=== PATIENT | female | born 1980 | race Caucasian/White ===

== ENCOUNTER 2021-10-22 09:34 | Outpatient (CLI) | payer OTHER, SELFPAY ==
--- NOTE | ~2021-10-22 | MM_ITS ---
EXAMINATION: MM screening [facility] BI w adrian HISTORY: Screening TECHNIQUE: Craniocaudal and mediolateral oblique 3-D tomosynthesis images were obtained and synthetic 2-D images were generated. CAD analysis was submitted and interpreted. COMPARISON: No prior mammogram is available for comparison at this institution. BREAST PARENCHYMAL COMPOSITION: The breasts are heterogeneously dense, which may obscure small masses . FINDINGS: There is no evidence of suspicious mass, calcification, or architectural distortion to sugg est malignancy in either breast. There has been no suspicious interval change. IMPRESSION: 1. No mammographic evidence of malignancy. 2. Recommend routine screening mammography in one year. BI-RADS Category 1: Negative Reviewed, dictated and finalized at location A. 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
== END 2021-10-22 09:35 | disposition home or self-care (01) ==
LOC: ANHIMG 09:38
PROVIDERS: PCP Family Medicine; Visit Provider Nurse Practitioner Obstetrics & Gynecology
DX: Z12.31 Encounter for screening mammogram for malignant neoplasm of breast (principal)
CPT/HCPCS: 77063; 77067

== ENCOUNTER 2023-04-18 08:31 | Outpatient (CLI) | payer OTHER, SELFPAY ==
--- NOTE | ~2023-04-18 | MM_ITS ---
EXAMINATION: MM screening [facility] BI w adrian HISTORY: Screening mammogram TECHNIQUE: Craniocaudal and mediolateral oblique 3-D tomosynthesis images were obtained and synthetic 2-D images were generated. CAD analysis was submitted and interpreted. COMPARISON: 10/22/2021 BREAST PARENCHYMAL COMPOSITION:The breasts are heterogeneously dense, which may obscure small masses. FINDINGS: No suspicious mass, calcification, or architectural distortion are identified in either mahesh ast to suggest malignancy. There has been no suspicious interval change. IMPRESSION: No mammographic evidence of malignancy. Recommend routine screening mammography in one year. BI-RADS Category 1: Negative Reviewed, dictated and finalized at location .
== END 2023-04-18 08:32 | disposition home or self-care (01) ==
LOC: ANHIMG 08:34
PROVIDERS: PCP Family Medicine; Visit Provider Nurse Practitioner Obstetrics & Gynecology
DX: Z12.31 Encounter for screening mammogram for malignant neoplasm of breast (principal)
CPT/HCPCS: 77063; 77067

== ENCOUNTER 2024-06-25 09:06 | Outpatient (CLI) | payer OTHER, SELFPAY ==
--- NOTE | ~2024-06-25 | MM_ITS ---
EXAMINATION: MM screening [facility] BI w adrian HISTORY: Screening TECHNIQUE: Craniocaudal and mediolateral oblique 3-D tomosynthesis images were obtained and synthetic 2-D images were generated. CAD analysis was submitted and interpreted. COMPARISON: Comparison to multiple prior studies sequentially, with oldest reviewed study dated 09/27. BREAST PARENCHYMAL COMPOSITION: Not dense: There are scattered areas of fibroglandular density. FINDINGS: There is no evidence of suspicious mass, calcification, or architectural distortion to sugg est malignancy in either breast. There has been no suspicious interval change. IMPRESSION: 1. No mammographic evidence of malignancy. 2. Recommend routine screening mammography in one year. BI-RADS Category 1: Negative Reviewed, dictated and finalized at location B.
== END 2024-06-25 09:07 | disposition home or self-care (01) ==
LOC: ANHIMG 09:07
PROVIDERS: PCP Family Medicine; Visit Provider Nurse Practitioner Obstetrics & Gynecology
DX: Z12.31 Encounter for screening mammogram for malignant neoplasm of breast (principal)
CPT/HCPCS: 77063; 77067

== ENCOUNTER 2025-02-27 10:55 | Emergency (ER) | payer OTHER, SELFPAY ==
--- OUTSIDE RECORDS SUMMARY | 2025-02-27 10:57 | XMS_ITS | Data Portability ---
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 Patient will come back in a year unless there are new symptoms. [email or web address] Not available 04/04/2020 10:23:37 04/24/2021 04/24/2021 Annual gynecological exam performed. Patient will come back in a year unless there are new symptoms. Not available 04/16/2021 15:11:59 05/30/2022 05/30/2022 Annual gynecological exam performed. Patient will come back in a year unless there are new symptoms. Not available 05/30/2022 09:47:10 06/21/2023 06/21/2023 Annual gynecological exam performed. Patient will come back in a year unless there are new symptoms. [email or web address] Not available 06/21/2023 10:08:08 07/02/2024 07/02/2024 Annual gynecological exam performed. Patient will come back in a year unless there are new symptoms. [email or web address] Not available 07/02/2024 15:09:25 Plan of Treatment Reminders Order Date Submit Date Provider Last Modified By Organization Details Last Modified Time Details Appointments None recorded. Lab CBC w/ auto diff 2023 024 [facility] (Lab), [address], [place], [address], 10/12/202 4 08:11:17 HbA1c (hemoglobi n A1c), blood 2023 024 [facility] (Lab), [address], [place], [address], 4 08:11:19 25-hydroxy vitamin D2 + 25-hydroxy vitamin D3, QN, serum or plasma 2023 024 [facility] (Lab), [address], [place], [address], 4 08:11:18 CMP, serum or plasma 2023 024 [facility] (Lab), [address], [place], [address], 4 08:11:18 lipid panel, blood 2023 024 [facility] (Lab), [address], [place], [address], 4 08:11:17 TSH, serum or plasma 2023 024 [facility] (Lab), [address], [place], [address], 4 08:11:18 vitamin D, 25-hydroxy , total, serum 2022 023 [facility] (Lab), [address], [place], [address], 3 07:41:20 CMP, serum or plasma 2022 023 [facility] (Lab), [address] [place], [address], 3 07:41:19 lipid panel, blood 2022 023 [facility] (Lab), [address] [place], [address], 3 07:41:19 CBC w/ auto diff 2022 023 [facility] (Lab), [address], [place], [address], 3 07:41:18 HbA1c (hemoglobi n A1c), blood 2022 023 [facility] (Lab), [address], [place], [address], 3 07:41:19 TSH, serum or plasma 2022 023 [facility] (Lab), [address], [place], [address], 3 07:41:20 lipid panel, blood 2021 022 [facility] (Lab), [address], [place], [address], 2 04:15:58 HbA1c (hemoglobi n A1c), blood 2021 022 [facility] (Lab), [address], [place], [address], 2 04:15:57 CMP, serum or plasma 2021 022 [facility] (Lab), [address], [place], [address], 2 04:15:59 vitamin D, 25-hydroxy , total, serum 2021 022 [facility] (Lab), [address] [place], [address], 2 04:15:59 CBC w/ auto diff 2021 022 [facility] (Lab), [address], [place], [address], 2 04:15:57 TSH, serum or plasma 2021 022 [facility] (Lab), [address] [place], [address], 2 04:15:58 CBC w/ auto diff 2020 021 [facility] (Lab), [address], [place], [address], 1 02:28:32 lipid panel, blood 2020 021 [facility] (Lab), [address], [place], [address], 1 02:28:33 CMP, serum or plasma 2020 021 [facility] (Lab), [address], [place], [address], 1 02:28:34 TSH, serum or plasma 2020 021 [facility] (Lab), [address] [place], [address], 1 02:28:34 vitamin D, 25-hydroxy , total, serum 2020 021 [facility] (Lab), [address] [place], [address], 1 02:28:34 HbA1c (hemoglobi n A1c), blood 2020 021 [facility] (Lab), [address] [place], [address], 1 02:28:35 CMP, serum or plasma 2019 020 [place] [facility] ([facility]), [address] , [place] [address], [place], [address], 0 12:03:59 CBC 2019 020 [facility] ([facility]), [address] [facility] [address], [place], [address], 0 12:03:59 lipid panel, serum 2019 020 [facility] ([facility]), [address] [facility] [address] , [address], [place], [address], 0 12:03:58 TSH, serum or plasma 2019 020 [facility] ([facility]), [address] [facility] [address], [place], [address], 0 12:04:01 vitamin D, 25-hydroxy , total, serum 2019 020 [facility] ([facility]), [address] [facility] [address] , [address], [place], [address], 0 12:04:02 HbA1c (hemoglobi n A1c), blood 2019 020 [facility] ([facility]), [facility] [address] , [address], [place], [address], 0 12:04:00 Referral None recorded. Procedures None recorded. Surgeries None recorded. Imaging MAMMO, screening, digital, bilateral 2020 021 [facility], [address], [place], [address], 2 17:28:37 Medication Orders None recorded. Patient TargetsNo targets recorded. Patient InstructionsNo instructions recorded. Reason for Referral None Reported. Results Created Date Observation Date Name Description Value Unit Range Abnormal Flag Note LastModifiedBy Organization Detail LastModifiedTime 04/04/20 20 04/05/2020 lipid panel , serum cholesterol 165 mg/dL <200 Not Available [facility] ([facility]) [address] [place] [address] [address], [place], [address], 04/05/2020 12:03:58 04/04/20 20 04/05/2020 lipid panel , serum triglyceride s 49 mg/dL <150 Not Available [facility] ([facility]) [address] [place] [address] [address], [place], [address], 04/05/2020 12:03:58 04/04/2004/05/2020 lipid panel , serum HDL cholesterol 66 mg/dL >39 Not Available [facility] ([facility]) [address] [place] [address] [address], [place], [address], 04/05/2020 12:03:58 04/04/20 20 04/05/2020 lipid panel , serum cholesterol / HDL ratio 2.50 ratio 0.00-4 .44 Not Available [facility] ([facility]) [address] [place] [address] [address], [place], [address], 04/05/2020 12:03:58 04/04/20 20 04/05/2020 lipid panel , serum non-HDL cholesterol 99 mg/dL <130 Not Available [facility] ([facility]) [address] [place] [address] [address], [place], [address], 04/05/2020 12:03:58 04/04/2004/05/2020 lipid panel , serum LDL cholesterol (calculation ) 89 mg/dL <130 LDL Susana stero l Level s Less than 100 mg/dL Optim al 100 to 129 mg/dL Near Optim al/ Above Optim al 130 to 159 mg/dL Borde rline High 160 to 189 mg/dL High 190 mg/dL and above Very High * Categ ories as recom jameson d by the 2004 ATPII I guide lines Not Available [facility] ([facility]) [address], [place], [address], 04/05/2020 12:03:58 04/04/20 20 04/05/2020 lipid panel , serum LDL/HDL ratio 1.4 ratio <3.3 ___ LDL Susana stero l Patie nt Histo ry ___ Test Date: 01/06 LDL Resul ts: 78 Units : mg/dL % Gabriella e: - ----- ----- ----- ----- ----- ----- ----- ----- ----- ----- ----- ----- ----- ----- --- Test Date: 04/04 LDL Resul ts: 89 Units : mg/dL % Quiroz e: +14% ___ Note: Ameri can Heart Assoc iatio n recom mends using total susana stero l and HDL numbe rs rathe r than ratio s for patie nt class ifica tion. New guide lines from AHA/A CC recom mend again st using speci fic LDL targe ts for patie nt manag ement . Rathe r a perce ntage decre ase is the joellen ed patie nt manag ement algor ithm, betwe en 30% and 50% reduc tion. If you would like to have your patie nts Cardi ovasc ular Risk Asses sment class ifica tion (per 2013 AHA/A CC guide lines ) 10-ye ar ASCVD score , pleas e order the ASCVD Advan barry Lipid Miguel Angel chowdhury (LIPC VD). Not Available [facility] ([facility]) [address] [place] [address] [address], [place], [address], 04/05/2020 12:03:58 04/04/2004/05/2020 CBC WBC 5.0 K/uL 3.8-11 .5 Not Available [facility] ([facility]) [address] [place] [address] [address], [place], [address], 04/05/2020 12:03:59 04/04/20 20 04/05/2020 CBC red blood cell count (RBC) 4.54 M/mm3 3.60-5 .30 Not Available [facility] ([facility]) [address] [place] [address] [address], [place], [address], 04/05/2020 12:03:59 04/04/20 20 04/05/2020 CBC hemoglobin (HGB) 13.3 gm/dL 11.5-1 5.5 Not Available [facility] ([facility]) [address] [place] [address] [address], [place], [address], 04/05/2020 12:03:59 04/04/2004/05/2020 CBC hematocrit (HCT) 40.0 % 35.2-4 6.4 Not Available [facility] ([facility]) [address] [place] [address] [address], [place], [address], 04/05/2020 12:03:59 04/04/2004/05/2020 CBC MCV 88.1 fL 79.0-9 9.0 Not Available [facility] ([facility]) [address] [place] [address] [address], [place], [address], 04/05/2020 12:03:59 04/04/20 20 04/05/2020 CBC MCH 29.3 pg 26.9-3 5.0 Not Available [facility] ([facility]) [address] [place] [address] [address], [place], [address], 04/05/2020 12:03:59 04/04/20 20 04/05/2020 CBC MCHC 33.3 g/dL 30.4-3 4.8 Not Available [facility] ([facility]) [address] [place] [address] [address], [place], [address], 04/05/2020 12:03:59 04/04/20 20 04/05/2020 CBC RDW 38.4 fL 38.6-5 3.8 low Not Available [facility] ([facility]) [address] [place] [address] [address], [place], [address], 04/05/2020 12:03:59 04/04/20 20 04/05/2020 CBC platelet count 213 K/cum m 137-39 7 Not Available [facility] ([facility]) [address] [place] [address] [address], [place], [address], 04/05/2020 12:03:59 04/04/20 20 04/05/2020 CMP, serum or plasm a sodium 138 mEq/L 135-14 5 Not Available [facility] ([facility]) [address] [place] [address] [address], [place], [address], 04/05/2020 12:03:59 04/04/20 20 04/05/2020 CMP, serum or plasm a potassium 4.0 mEq/L 3.5-5. 3 Not Available [facility] ([facility]) [address] [place] [address] [address], [place], [address], 04/05/2020 12:03:59 04/04/20 20 04/05/2020 CMP, serum or plasm a chloride 100 mEq/L 97-108 Not Available [facility] ([facility]) [address] [place] [address] [address], [place], [address], 04/05/2020 12:03:59 04/04/20 20 04/05/2020 CMP, serum or plasm a CO2 26 mEq/L 22-32 Not Available [facility] ([facility]) [address] [place] [address] [address], [place], [address], 04/05/2020 12:03:59 04/04/20 20 04/05/2020 CMP, serum or plasm a glucose 83 mg/dL 65-99 Not Available [facility] ([facility]) [address] [place] [address] [address], [place], [address], 04/05/2020 12:03:59 04/04/20 20 04/05/2020 CMP, serum or plasm a BUN 11 mg/dL 6-20 Not Available [facility] ([facility]) [address] [place] [address] [address], [place], [address], 04/05/2020 12:03:59 04/04/20 20 04/05/2020 CMP, serum or plasm a creatinine 0.76 mg/dL 0.50-1 .00 Not Available [facility] ([facility]) [address] [place] [address] [address], [place], [address], 04/05/2020 12:03:59 04/04/20 20 04/05/2020 CMP, serum or plasm a calcium 9.7 mg/dL 8.6-10 .4 Not Available [facility] ([facility]) [address] [place] [address] [address], [place], [address], 04/05/2020 12:03:59 04/04/20 20 04/05/2020 CMP, serum or plasm a protein 7.3 g/dL 6.0-8. 3 Not Available [facility] ([facility]) [address] [place] [address] [address], [place], [address], 04/05/2020 12:03:59 04/04/20 20 04/05/2020 CMP, serum or plasm a albumin 4.9 g/dL 3.5-5. 3 Not Available [facility] ([facility]) [address] [place] [address] [address], [place], [address], 04/05/2020 12:03:59 04/04/20 20 04/05/2020 CMP, serum or plasm a alkaline phosphatase 49 IU/L 35-121 Not Available [facility] ([facility]) [address] [place] [address] [address], [place], [address], 04/05/2020 12:03:59 04/04/20 20 04/05/2020 CMP, serum or plasm a ALT (SGPT) 12 IU/L <5-47 Not Available [facility] ([facility]) [address] [place] [address] [address], [place], [address], 04/05/2020 12:03:59 04/04/20 20 04/05/2020 CMP, serum or plasm a AST (SGOT) 20 IU/L <5-40 Not Available [facility] ([facility]) [address] [place] [address] [address], [place], [address], 04/05/2020 12:03:59 04/04/20 20 04/05/2020 CMP, serum or plasm a bilirubin, total 0.4 mg/dL <0.2-1 .2 Not Available [facility] ([facility]) [address] [place] [address] [address], [place], [address], 04/05/2020 12:03:59 04/04/20 20 04/05/2020 CMP, serum or plasm a A/G ratio 2.0 mg/dL 1.1-2. 5 Not Available [facility] ([facility]) [address], [place], [address], 04/05/2020 12:03:59 04/04/20 20 04/05/2020 GFR, estim ated (eGFR ), serum estimated GFR (black) 115 mL/mi n/1.7 3m2 >59 Not Available [facility] ([facility]) [facility] [facility] [address], [place], [address], 04/05/2020 12:04:00 04/04/20 20 04/05/2020 GFR, estim ated (eGFR ), serum estimated GFR (other) 99 mL/mi n/1.7 3m2 >59 GFR Categ ories in Chron ic Kidne y Disea se (CKD) GFR Categ ory GFR (mL/m in/1. 73 sq. meter s) Inter preta tion G1 90 or great er Kira l or high* G2 60-89 Mild decre ase* G3a 45-59 Mild to moder ate decre ase G3b 30-44 Moder ate to sever e decre ase G4 15-29 Sever e decre ase G5 14 or less Cori belcher failu re *In the absen ce of afrrukh plasencia er GFR categ ory G1 or G2 fulfi ll the crite donnell for CKD (Kidn ey Int Suppl 2013; 3.1-1 50) The CKD-E PI calcu latio n is inten ded for use in patie nts 18 years of age and older . Decre ased calcu latio n accur acy may be seen in patie nts takin g medic ation s that affec t renal excre tion, or in those patie nts with extre mes in muscl e mass or diet. Not Available [facility] ([facility]) [address], [place], [address], 04/05/2020 12:04:00 04/04/20 20 04/05/2020 HbA1c (hemo globi n A1c), blood hemoglobin A1C 5.1 % <5.7 The follo wing HbA1c range s recom jameson d by the [employer] Diabe morgan Assoc iatio n (ADA) may be used as an aid in the diagn osis of diabe morgan melli tus. HA1c Sugge sted Diagn osis >=6.5 % Diabe tic 5.7% - 6.4% Pre-D iabet ic <5.7% Non-D iabet ic Not Available [facility] ([facility]) [address] [place] [address] [address], [place], [address], 04/05/2020 12:04:00 04/04/20 20 04/05/2020 estim ated avera ge gluco se estimated average glucose 100 mg/dL [place] ge Gluco se is calcu lated using the equat ion AG = (28.7 x HgbA1 c) - 46.7 based on the guide lines estab lishe d by the ADA. Not Available [facility] ([facility]) [address] [place] [address] [address], [place], [address], 04/05/2020 12:04:01 04/04/20 20 04/05/2020 TSH, serum or plasm a TSH reflex to FT4 1.99 mU/L 0.27-4 .20 Not Available [facility] ([facility]) [address] [place] [address] [address], [place], [address], 04/05/2020 12:04:01 04/04/20 20 04/05/2020 vitam in D, 25-hy droxy , total , serum vitamin D 25-hydroxy 38.8 NG/mL 30.0-1 00.0 Inter preta tion of Vitam in D 25 OH: < 20 ng/mL - Defic iency 20 - 29 ng/mL - Insuf ficie ncy 30 - 100 ng/mL - Suffi cienc y > 100 ng/mL - Super -ther apeut ic- toxic ity may occur above this level . Clini yaneth corre latio n requi red. Not Available [facility] ([facility]) [address] [address], [place], [address], 04/05/2020 12:04:02 04/04/20 20 04/06/2020 pap, LB Pap test thin prep Unsati sfacto ry for Evalua tion unsatisfa ctory ACCES JAGJIT #: [id number] Sourc e: Cervi yaneth/E ndoce rvica l LMP: 03/20 Date Taken : 04/04 Speci men Type: ThinP rep Vial Date Repor macrina: 2019 Clini yaneth Data: Cytot ech: Matheus Mancia carisa, CT( CP) Date Repor macrina: 2019 Speci men Adequ acy: Unsat isfac tory for evalu ation Speci men is proce ssed and exami mesha but unsat isfac tory for evalu ation of epith elial abnor malit y becau se of: Too few cells prese nt for adequ ate evalu ation Gener al Categ oriza tion: UNSAT ISFAC TORY FOR EVALU ATION Comme nts/R ecomm endat ions: SPECI MEN WAS REPRO CESSE D IN AN ATTEM PT TO OBTAI N AN ADEQU ATE SAMPL E. D N A A S S A Y S R E P O R T TEST NAME RESUL TS ----- ---- ----- -- HPV High Risk Scree n (TMA) ThinP rep Vial The human papil lomav irus (HPV) High Risk Scree n is an FDA-a pprov ed in-vi tro ampli fied nucle ic acid test for the quali tativ e detec tion of E6/E7 viral mRNA. Resul ts mayra bowen be corre lated with patie nt prese ntati on, histo ry, cervi yaneth cytol ogy and other clini yaneth and labor atory findi ngs. See https ://ww w.hol ogic. com/s ites/ defau lt/fi les2 018-0 3/AW- 98407 _002_ 01.pd f for ander er infor blanka n. Test perfo rmed by [employer] [facility], [address], [place] [address] , Elias De La Cruz ra, , Labor atorqunb Dire tor. HPV High Risk *HPV NOT DETEC MACRINA (TYPE S 16, 18, 31, 33, 35, 39, 45, 51, 52, 56, 58, 59, 66, 68) *HPV: The human papil lomav irus (HPV) High Risk Himanshu mcnamara is an FDA-a pprov ed in-vi tro ampli fied nucle ic acid test for the quali tativ e detec tion of E6/E7 viral mRNA. Resul ts shoul d be corre lated with patie nt prese ntati on, histo ry, cervi yaneth cytol ogy and other clini yaneth and labor atory findi ngs. See https ://Advice [employer]. [employer]/s ites/ defau lt/fi -0 3- 91847 _002_ 01.pd f for ander er infor blanka n. Test perfo rmed by [employer] [facility], [address], [place] [address] , Elias De La Cruz ra, DO, Labor atorqunb Dire tor. End of Repor t Techn ical servi manohar provi ded by [employer], [address] [place] [address] Chang Pineda MD, Labor Vehrity Dire tor. Case revie wed and diagn osis rende red at [employer], [facility], [address] [place] [address] Chang Pineda MD, Labor atorqunb Dire tor. CONFI DENTI AL Not Available [facility] ([facility]) [address], [place], [address], 04/06/2020 16:51:55 04/04/20 20 04/05/2020 HPV DNA, high- risk HPV high risk NOT DETECT ED normal Not Available [facility] ([facility]) [address], [place], [address], 04/06/2020 16:51:55 04/24/20 21 04/24/2021 CBC W/DIF F WBC 5.7 10'3/ uL 3.6-10 .2 Not Available [facility] (Lab) [address], [place], [address], 04/25/2021 02:28:32 04/24/20 21 04/24/2021 CBC W/DIF F RBC 4.80 10'6/ uL (based on docume nted legal sex) 4.10-5 .30 Not Available [facility] (Lab) [address], [place], [address], 04/25/2021 02:28:32 04/24/20 21 04/24/2021 CBC W/DIF F HGB 13.3 g/dL (based on docume nted legal sex) 11.9-1 5.8 Not Available [facility] (Lab) [address], [place], [address], 04/25/2021 02:28:32 04/24/20 21 04/24/2021 CBC W/DIF F HCT 43.6 % (based on docume nted legal sex) 37.4-4 8.3 Not Available [facility] (Lab) [address], [place], [address], 04/25/2021 02:28:32 04/24/20 21 04/24/2021 CBC W/DIF F MCV 91.0 fL 82.0-9 9.0 Not Available [facility] (Lab) [address] [place], [address], 04/25/2021 02:28:32 04/24/20 21 04/24/2021 CBC W/DIF F MCH 28.0 pg 27.0-3 3.0 Not Available [facility] (Lab) [address], [place], [address], 04/25/2021 02:28:32 04/24/20 21 04/24/2021 CBC W/DIF F MCHC 31.0 g/dL 32.0-3 6.0 low Not Available [facility] (Lab) [address], [place], [address], 04/25/2021 02:28:32 04/24/20 21 04/24/2021 CBC W/DIF F RDW 13.0 % 11.0-1 5.0 Not Available [facility] (Lab) [address], [place], [address], 04/25/2021 02:28:32 04/24/20 21 04/24/2021 CBC W/DIF F plt 215 10'3/ uL 150-45 0 Not Available [facility] (Lab) [address], [place], [address], 04/25/2021 02:28:32 04/24/20 21 04/24/2021 CBC W/DIF F MPV 12.8 fL Not Available [facility] (Lab) [address], [place], [address], 04/25/2021 02:28:32 04/24/20 21 04/24/2021 CBC W/DIF F NRBC's 0.00 % 0 Not Available [facility] (Lab) [address], [place], [address], 04/25/2021 02:28:32 04/24/20 21 04/24/2021 CBC W/DIF F absolute NRBCs 0.0 10'3/ uL 0 Not Available [facility] [facility] [address], [place], [address], 04/25/2021 02:28:32 04/24/20 21 04/24/2021 CBC W/DIF F neutrophils 59.0 % 37.0-7 2.0 Not Available [facility] (Lab) [address], [place], [address], 04/25/2021 02:28:32 04/24/20 21 04/24/2021 CBC W/DIF F lymphocytes 31.0 % 16.0-4 8.0 Not Available [facility] (Lab) [address], [place], [address], 04/25/2021 02:28:32 04/24/20 21 04/24/2021 CBC W/DIF F monocytes 7.0 % 4.0-14 .0 Not Available [facility] (Lab) [address], [place], [address], 04/25/2021 02:28:32 04/24/20 21 04/24/2021 CBC W/DIF F eosinophils 2.0 % 0.0-9. 0 Not Available [facility] (Lab) [address], [place], [address], 04/25/2021 02:28:32 04/24/20 21 04/24/2021 CBC W/DIF F basophils 1.0 % 0.0-2. 0 Not Available [facility] (Lab) [address], [place], [address], 04/25/2021 02:28:32 04/24/20 21 04/24/2021 CBC W/DIF F immature granulocytes 0.0 % no define d refere nce range Not Available [facility] (Lab) [address], [place], [address], 04/25/2021 02:28:32 04/24/20 21 04/24/2021 CBC W/DIF F absolute neutrophils 3.4 10'3/ uL 1.1-6. 0 Not Available [facility] (Lab) [address], [place], [address], 04/25/2021 02:28:32 04/24/20 21 04/24/2021 CBC W/DIF F absolute lymphocytes 1.8 10'3/ uL 0.7-3. 4 Not Available [facility] (Lab) [address], [place], [address], 04/25/2021 02:28:32 04/24/20 21 04/24/2021 CBC W/DIF F absolute monocytes 0.4 10'3/ uL 0.3-1. 0 Not Available [facility] (Lab) [address], [place], [address], 04/25/2021 02:28:32 04/24/20 21 04/24/2021 CBC W/DIF F absolute eosinophils 0.1 10'3/ uL 0.0-0. 6 Not Available [facility] (Lab) [address], [place], [address], 04/25/2021 02:28:32 04/24/20 21 04/24/2021 CBC W/DIF F absolute basophils 0.1 10'3/ uL 0.0-0. 1 Not Available [facility] (Lab) [address], [place], [address], 04/25/2021 02:28:32 04/24/20 21 04/24/2021 CBC W/DIF F absolute immature granulocytes 0.00 10'3/ uL 0.00-0 .10 2020 12:14 AM: P indic ates parti al resul ts on a panel have been relea sed. Addit ional resul ts will follo w. 2020 12:14 AM: This resul t has been final verif ied. No addit ional or quiroz ed resul ts are expec macrina. Not Available [facility] (Lab) [address], [place], [address], 04/25/2021 02:28:32 04/24/20 21 04/24/2021 LIPID PANEL ,AMA (LDL- CALC) total cholesterol 149 mg/dL 0-199 Not Available [facility] (Lab) [address], [place], [address], 04/25/2021 02:28:33 04/24/20 21 04/24/2021 LIPID PANEL ,AMA (LDL- CALC) triglyceride s 46 mg/dL 0.00-1 50.00 NCEP Refer ence Value s for Trigl yceri nat: Kira l: <150 mg/dL Borde rline High: 150 - 199 mg/dL High: 200 - 499 mg/dL Very High: >/= 500 mg/dL Not Available [facility] (Lab) [address], [place], [address], 04/25/2021 02:28:33 04/24/2004/24/2021 LIPID PANEL ,AMA (LDL- CALC) HDL cholesterol 56 mg/dL 23-92 Not Available [facility] (Lab) [address], [place], [address], 04/25/2021 02:28:33 04/24/20 21 04/24/2021 LIPID PANEL ,AMA (LDL- CALC) LDL cholesterol 84 mg/dL 0-99 Cutof f value s recom jameson d by the Nat[employer] nal Susana st[employer] l [employer]ca tion Progr am: JOELLEN ABLE: Susana stero l <200 mg/dL LDL <100 mg/dL BORDE RLINE : Susana stero l 200-2 39 mg/dL LDL 101-1 59 mg/dL HIGHE R RISK: Susana stero l >240 mg/dL LDL >160 mg/dL , HDL <40 mg/dL Not Available [facility] (Lab) [address], [place], [address], 04/25/2021 02:28:33 04/24/20 21 04/24/2021 LIPID PANEL ,AMA (LDL- CALC) non-HDL cholesterol 93 mg/dL no refere nce range A reaso nable goal for non-H DL susana stero l is one that is 30 mg/dL highe r than the LDL susana stero l goal. Not Available [facility] (Lab) [address], [place], [address], 04/25/2021 02:28:33 04/24/20 21 04/24/2021 LIPID PANEL ,AMA (LDL- CALC) chol/HDL ratio 2.7 . 0.0-5. 0 Not Available [facility] (Lab) [address], [place], [address], 04/25/2021 02:28:33 04/24/20 21 04/24/2021 CMP(C OMPRE HENSI VE METAB OLIC PANEL ) sodium 138 mmol/ L 136-14 5 Not Available [facility] (Lab) [address], [place], [address], 04/25/2021 02:28:34 04/24/20 21 04/24/2021 CMP(C OMPRE HENSI VE METAB OLIC PANEL ) potassium 3.8 mmol/ L 3.5-5. 1 Not Available [facility] (Lab) [address], [place], [address], 04/25/2021 02:28:34 04/24/20 21 04/24/2021 CMP(C OMPRE HENSI VE METAB OLIC PANEL ) chloride 104 mmol/ L 98-107 Not Available [facility] (Lab) [address] [place], [address], 04/25/2021 02:28:34 04/24/20 21 04/24/2021 CMP(C OMPRE HENSI VE METAB OLIC PANEL ) carbon dioxide 25 mmol/ L 21-31 Not Available [facility] (Lab) [address] [place], [address], 04/25/2021 02:28:34 04/24/20 21 04/24/2021 CMP(C OMPRE HENSI VE METAB OLIC PANEL ) anion gap 9 mmol/ L 4-13 Not Available [facility] (Lab) [address], [place], [address], 04/25/2021 02:28:34 04/24/20 21 04/24/2021 CMP(C OMPRE HENSI VE METAB OLIC PANEL ) blood urea nitrogen 12 mg/dL 7-25 Not Available [facility] (Lab) [address], [place], [address], 04/25/2021 02:28:34 04/24/20 21 04/24/2021 CMP(C OMPRE HENSI VE METAB OLIC PANEL ) creatinine 0.74 mg/dL 0.60-1 .30 Not Available [facility] (Lab) [address], [place], [address], 04/25/2021 02:28:34 04/24/20 21 04/24/2021 CMP(C OMPRE HENSI VE METAB OLIC PANEL ) GFR () 106 mL/mi n/1.7 3_m2 60-300 Not Available [facility] (Lab) [address], [place], [address], 04/25/2021 02:28:34 04/24/20 21 04/24/2021 CMP(C OMPRE HENSI VE METAB OLIC PANEL ) GFR (others) 87 mL/mi n/1.7 3_m2 60-300 Not Available [facility] (Lab) [address], [place], [address], 04/25/2021 02:28:34 04/24/20 21 04/24/2021 CMP(C OMPRE HENSI VE METAB OLIC PANEL ) calcium 9.3 mg/dL 8.6-10 .2 Not Available [facility] (Lab) [address], [place], [address], 04/25/2021 02:28:34 04/24/20 21 04/24/2021 CMP(C OMPRE HENSI VE METAB OLIC PANEL ) glucose 80 mg/dL 70-100 Not Available [facility] (Lab) [address], [place], [address], 04/25/2021 02:28:34 04/24/20 21 04/24/2021 CMP(C OMPRE HENSI VE METAB OLIC PANEL ) protein, total 7.1 g/dL 6.4-8. 3 Not Available [facility] (Lab) [address], [place], [address], 04/25/2021 02:28:34 04/24/20 21 04/24/2021 CMP(C OMPRE HENSI VE METAB OLIC PANEL ) albumin 4.3 g/dL 3.5-5. 0 Not Available [facility] (Lab) [address], [place], [address], 04/25/2021 02:28:34 04/24/20 21 04/24/2021 CMP(C OMPRE HENSI VE METAB OLIC PANEL ) ALT 9 units /L 9-43 Not Available [facility] (Lab) [address], [place], [address], 04/25/2021 02:28:34 04/24/20 21 04/24/2021 CMP(C OMPRE HENSI VE METAB OLIC PANEL ) alkaline phosphatase 39 units /L 34-104 Not Available [facility] (Lab) [address], [place], [address], 04/25/2021 02:28:34 04/24/20 21 04/24/2021 CMP(C OMPRE HENSI VE METAB OLIC PANEL ) AST 15 units /L 13-39 Not Available [facility] (Lab) [address], [place], [address], 04/25/2021 02:28:34 04/24/20 21 04/24/2021 CMP(C OMPRE HENSI VE METAB OLIC PANEL ) bilirubin, total 0.4 mg/dL 0.2-1. 2 Not Available [facility] (Lab) [address] [place], [address], 04/25/2021 02:28:34 04/24/20 21 04/24/2021 TSH, REFLE X FREE T4 TSH 2.72 uIU/m L 0.30-5 .33 Not Available [facility] (Lab) [address], [place], [address], 04/25/2021 02:28:34 04/24/20 21 04/24/2021 VITAM IN D, 25-OH (TOTA L D2/D3 ) vitamin D, 25-hydroxy, total 36.5 NG/mL 30-80 NOTE: Defic iency : <20 ng/mL Insuf ficie ncy: 20-29 ng/mL Optim um Level : 30-80 ng/mL Possi ble Toxic ity: >80 ng/mL Most patie nts with toxic ity have level s >150 ng/mL . Not Available [facility] (Lab) [address], [place], [address], 04/25/2021 02:28:34 04/24/20 21 04/24/2021 HEMOG LOBIN A1C hemoglobin A1C 5.2 % 0-5.6 The Ameri can Diabe morgan [employer] iatio n recom mends that a prima ry goal of thera py shoul d be a HBA1C of < 7% and that physi cians shoul d reeva luate the treat ment regim en in patie nts with HBA1C value s consi stent ly > 8%. 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 Locat ion: [place] Path[facility] log[facility] Recei jalyn: 04/25 0013 First Scree n: Nabil Scott, CT Speci men: Scree karen Pap - Image d, Cervi x STATE MENT OF ADEQU ACY: Satis facto ry for evalu ation Trans forma tion zone compo nent prese nt FINAL DIAGN OSIS: Negat lanette for Intra epith elial Lesio n or Malrey gordon Elect stone arshad bernice d by Nabil Scott, CT on 021 at 11:44 AM ----- ----- ----- ----- ----- ----- ----- ----- ----- ----- ----- ----- ----- ----- ----- ----- ----- ---- HPV RESUL TS: HPV mRNA E6/E7 : No HPV mRNA Detec macrina NOTE: This high risk HPV mRNA assay detec ts fourt een high- risk HPV types (16, 18, 31, 33, 35, 39, 45, 51, 52, 56, 58, 59, 66, 68) witho ut diffe renti ation . CHART ABLE COMME NT: Note: This speci men was revie wed by a Cytot echno logis t and/o r Patho logis t (as indic ated in this repor t) after evalu ation using the Thinp rep Imagi ng Syste m. CLINI YANETH INFOR MATIO N: Menst rual Statu s: LMP (if appli cable ): 021 Clini yaneth Histo ry/Pr eviou s Pap: Type of Neopl casey (if appli cable ): Other Histo ry: Hormo dariela (if appli cable ): PAP EDUCA JASVIR L NOTE: The Pap Test is a scree karen test with an inher ent false negat lanette rate. Liqui d-bas e sampl ing may decre ase, but will not elimi david, false negat lanette resul ts. A negat lanette resul t does not precl ude the prese nce and/o r devel opmen t of disea se, since the prese nce of abnor mal cells in the sampl e depen ds on the locat ion of the lesio n and sampl ing techn ique. Violetta nued regul ar scree karen is the best metho d of cance r preve ntion . If repor macrina cytol ogic findi ng do not corre late with physi yaneth and/o r histo rical findi ngs, furth er inves tigat ion is recom jameson d, as clini dre nye nted. Not Available [facility] (Lab) [address], [place], [address], 04/26/2021 12:47:05 05/30/20 22 05/30/2022 CBC W/DIF F WBC 5.4 10'3/ uL 3.6-10 .2 Not Available [facility] [address] [place] [address], [address], 05/31/2022 04:15:57 05/30/20 22 05/30/2022 CBC W/DIF F RBC 4.70 10'6/ uL (based on docume nted legal sex) 4.10-5 .30 Not Available [facility] [address] [place] [address], [address], 05/31/2022 04:15:57 05/30/20 22 05/30/2022 CBC W/DIF F HGB 13.2 g/dL (based on docume nted legal sex) 11.9-1 5.8 Not Available [facility] [address] [place] [address], [address], 05/31/2022 04:15:57 05/30/20 22 05/30/2022 CBC W/DIF F HCT 42.8 % (based on docume nted legal sex) 37.4-4 8.3 Not Available [facility] [place], [address], 05/31/2022 04:15:57 05/30/20 22 05/30/2022 CBC W/DIF F MCV 91.0 fL 82.0-9 9.0 Not Available [facility] [place], [address], 05/31/2022 04:15:57 05/30/20 22 05/30/2022 CBC W/DIF F MCH 28.0 pg 27.0-3 3.0 Not Available [facility] [address] [place], [place] [address], [place], [address], 05/31/2022 04:15:57 05/30/20 22 05/30/2022 CBC W/DIF F MCHC 31.0 g/dL 32.0-3 6.0 low Not Available [facility] [place], [address], 05/31/2022 04:15:57 05/30/20 22 05/30/2022 CBC W/DIF F RDW 13.0 % 11.0-1 5.0 Not Available [facility] [place], [address], 05/31/2022 04:15:57 05/30/20 22 05/30/2022 CBC W/DIF F plt 251 10'3/ uL 150-45 0 Not Available [facility] [place], [address], 05/31/2022 04:15:57 05/30/20 22 05/30/2022 CBC W/DIF F MPV 12.9 fL 9.8-12 .7 high Not Available [facility] [place], [address], 05/31/2022 04:15:57 05/30/20 22 05/30/2022 CBC W/DIF F NRBC's 0.00 % 0 Not Available [facility] [place], [address], 05/31/2022 04:15:57 05/30/20 22 05/30/2022 CBC W/DIF F absolute NRBCs 0.0 10'3/ uL 0 Not Available [facility] [address] [place], [place] [address], [place], [address], 05/31/2022 04:15:57 05/30/20 22 05/30/2022 CBC W/DIF F neutrophils 57.0 % 37.0-7 2.0 Not Available [facility] [address] [place] [address], [address], 05/31/2022 04:15:57 05/30/20 22 05/30/2022 CBC W/DIF F lymphocytes 32.0 % 16.0-4 8.0 Not Available [facility] [address] [place] [address], [address], 05/31/2022 04:15:57 05/30/20 22 05/30/2022 CBC W/DIF F monocytes 8.0 % 4.0-14 .0 Not Available [facility] [address] [place], [place] [address], [place], [address], 05/31/2022 04:15:57 05/30/20 22 05/30/2022 CBC W/DIF F eosinophils 2.0 % 0.0-9. 0 Not Available [facility] [address] [place] [address], [place], [address], 05/31/2022 04:15:57 05/30/20 22 05/30/2022 CBC W/DIF F basophils 1.0 % 0.0-2. 0 Not Available [facility] [address] [place], [place] [address], [place], [address], 05/31/2022 04:15:57 05/30/20 22 05/30/2022 CBC W/DIF F immature granulocytes 0.0 % no define d refere nce range Not Available [facility] [address] [place] [address], [address], 05/31/2022 04:15:57 05/30/20 22 05/30/2022 CBC W/DIF F absolute neutrophils 3.1 10'3/ uL 1.1-6. 0 Not Available [facility] [address] [place] [address], [address], 05/31/2022 04:15:57 05/30/20 22 05/30/2022 CBC W/DIF F absolute lymphocytes 1.7 10'3/ uL 0.7-3. 4 Not Available [facility] [address] [place] [address], [address], 05/31/2022 04:15:57 05/30/20 22 05/30/2022 CBC W/DIF F absolute monocytes 0.4 10'3/ uL 0.3-1. 0 Not Available [facility] [address] [place] [address], [address], 05/31/2022 04:15:57 05/30/20 22 05/30/2022 CBC W/DIF F absolute eosinophils 0.1 10'3/ uL 0.0-0. 6 Not Available [facility] [address] [place] [address], [address], 05/31/2022 04:15:57 05/30/20 22 05/30/2022 CBC W/DIF F absolute basophils 0.1 10'3/ uL 0.0-0. 1 Not Available [facility] [address] [place], [address], 05/31/2022 04:15:57 05/30/20 22 05/30/2022 CBC W/DIF F absolute immature granulocytes 0.00 10'3/ uL 0.00-0 .10 2:16 AM: P indic ates parti al resul ts on a panel have been relea sed. Addit ional resul ts will follo w. 2:16 AM: This resul t has been final verif ied. No addit ional or quiroz ed resul ts are expec macrina. Not Available [facility] [address] [place], [address], 05/31/2022 04:15:57 05/30/20 22 05/30/2022 HEMOG LOBIN A1C hemoglobin A1C 5.2 % 0-5.6 The Ameri can [employer] mor[employer] iatio n recom mends that a prima ry goal of thera py yudelkaul d be a HBA1C of < 7% and that physi cians shoul d reeva luate the treat ment regim en in patie nts with HBA1C value s consi stent ly > 8%. <5.7% Kira l 5.7 - 6.4% Incre ased risk for diabe morgan >=6.5 % Diagn ostic of diabe mogran <7.0% Goal of thera py >8.0% Actio n sugge sted Not Available [email or web address] [address] [place], [address], 05/31/2022 04:15:57 05/30/2005/30/2022 TSH, REFLE X FREE T4 TSH 1.99 uIU/m L 0.30-5 .33 Not Available [facility] [address] [place], [address], 05/31/2022 04:15:58 05/30/20 22 05/30/2022 LIPID PANEL ,AMA (LDL- CALC) total cholesterol 164 mg/dL 0-199 Not Available [facility] [address] [place] [address], [address], 05/31/2022 04:15:58 05/30/20 22 05/30/2022 LIPID PANEL ,AMA (LDL- CALC) triglyceride s 49 mg/dL 0.00-1 50.00 NCEP Refer ence Value s for Trigl yceri nat: Kira l: <150 mg/dL Borde rline High: 150 - 199 mg/dL High: 200 - 499 mg/dL Very High: >/= 500 mg/dL Not Available [facility] [address] [place] [address], [address], 05/31/2022 04:15:58 05/30/20 22 05/30/2022 LIPID PANEL ,AMA (LDL- CALC) HDL cholesterol 55 mg/dL >40 Not Available [facility] [address], [address], 05/31/2022 04:15:58 05/30/20 22 05/30/2022 LIPID PANEL ,AMA (LDL- CALC) LDL cholesterol 99 mg/dL 0-99 Cutof f value s recom jameson d by the [facility] Susana stero l Educa tion Progr am: JOELLEN ABLE: Susana stero l <200 mg/dL LDL <100 mg/dL BORDE RLINE : Susana stero l 200-2 39 mg/dL LDL 101-1 59 mg/dL HIGHE R RISK: Susana stero l >240 mg/dL LDL >160 mg/dL , HDL <40 mg/dL Not Available [facility] [address] [place] [address], [address], 05/31/2022 04:15:58 05/30/20 22 05/30/2022 LIPID PANEL ,AMA (LDL- CALC) non-HDL cholesterol 109 mg/dL no refere nce range A reaso nable goal for non-H DL susana stero l is one that is 30 mg/dL highe r than the LDL susana stero l goal. Not Available [facility] [place], [address], 05/31/2022 04:15:58 05/30/20 22 05/30/2022 LIPID PANEL ,AMA (LDL- CALC) chol/HDL ratio 3.0 . 0.0-5. 0 Not Available [facility] [address] [place], [place] [address], [place], [address], 05/31/2022 04:15:58 05/30/20 22 05/30/2022 CMP(C OMPRE HENSI VE METAB OLIC PANEL ) sodium 139 mmol/ L 133-14 6 Not Available [facility] [address] [place], [place] [address], [place], [address], 05/31/2022 04:15:59 05/30/20 22 05/30/2022 CMP(C OMPRE HENSI VE METAB OLIC PANEL ) potassium 3.6 mmol/ L 3.5-5. 1 Not Available [facility] [address] [place], [place] [address], [place], [address], 05/31/2022 04:15:59 05/30/20 22 05/30/2022 CMP(C OMPRE HENSI VE METAB OLIC PANEL ) chloride 103 mmol/ L 98-107 Not Available [facility] [address] [place], [place] [address], [place], [address], 05/31/2022 04:15:59 05/30/20 22 05/30/2022 CMP(C OMPRE HENSI VE METAB OLIC PANEL ) carbon dioxide 25 mmol/ L 21-31 Not Available [facility] [address] [place], [place] [address], [place], [address], 05/31/2022 04:15:59 05/30/20 22 05/30/2022 CMP(C OMPRE HENSI VE METAB OLIC PANEL ) anion gap 11 mmol/ L 4-13 Not Available [facility] [address] [place], [place] [address], [place], [address], 05/31/2022 04:15:59 05/30/20 22 05/30/2022 CMP(C OMPRE HENSI VE METAB OLIC PANEL ) blood urea nitrogen 10 mg/dL 7-25 Not Available [facility] [address] [place], [place] [address], [address], 05/31/2022 04:15:59 05/30/20 22 05/30/2022 CMP(C OMPRE HENSI VE METAB OLIC PANEL ) creatinine 0.83 mg/dL 0.60-1 .30 Not Available [facility] [address] [place], [place] [address], [address], 05/31/2022 04:15:59 05/30/20 22 05/30/2022 CMP(C OMPRE HENSI VE METAB OLIC PANEL ) egfrcr (CKD-epi 2020) >90 mL/mi n/1.7 3_m2 >=60 Not Available [facility] [address] [place], [place] [address], [place], [address], 05/31/2022 04:15:59 05/30/20 22 05/30/2022 CMP(C OMPRE HENSI VE METAB OLIC PANEL ) calcium 9.4 mg/dL 8.3-10 .5 Not Available [facility] [address] [place], [place] [address], [place], [address], 05/31/2022 04:15:59 05/30/20 22 05/30/2022 CMP(C OMPRE HENSI VE METAB OLIC PANEL ) glucose 76 mg/dL 70-100 Not Available [facility] [address] [place], [place] [address], [place], [address], 05/31/2022 04:15:59 05/30/20 22 05/30/2022 CMP(C OMPRE HENSI VE METAB OLIC PANEL ) protein, total 7.2 g/dL 6.4-8. 3 Not Available [facility] [address] [place] [address], [address], 05/31/2022 04:15:59 05/30/20 22 05/30/2022 CMP(C OMPRE HENSI VE METAB OLIC PANEL ) albumin 4.5 g/dL 3.5-5. 0 Not Available [facility] [address] [place] [address], [address], 05/31/2022 04:15:59 05/30/20 22 05/30/2022 CMP(C OMPRE HENSI VE METAB OLIC PANEL ) ALT 12 units /L 9-43 Not Available [facility] [address] [place] [address], [address], 05/31/2022 04:15:59 05/30/20 22 05/30/2022 CMP(C OMPRE HENSI VE METAB OLIC PANEL ) alkaline phosphatase 46 units /L 34-104 Not Available [facility] [address] [place] [address], [address], 05/31/2022 04:15:59 05/30/20 22 05/30/2022 CMP(C OMPRE HENSI VE METAB OLIC PANEL ) AST 20 units /L 13-39 Not Available [facility] [address] [place] [address], [address], 05/31/2022 04:15:59 05/30/20 22 05/30/2022 CMP(C OMPRE HENSI VE METAB OLIC PANEL ) bilirubin, total 0.6 mg/dL 0.2-1. 2 Not Available [facility] Infectious Disease [address] [place], [place] [address], [place], [phone], 05/31/2022 04:15:59 05/30/20 22 05/30/2022 VITAM IN D, 25-OH (TOTA L D2/D3 ) vitamin D, 25-hydroxy, total 23.0 NG/mL 30.0-1 00.0 low R-The refer ence range for this test has been updat ed. 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 Lázaro arshad bernice d by Desire Morris, CT on 022 at 5:42 PM ----- ----- ----- ----- ----- ----- ----- ----- ----- ----- ----- ----- ----- ----- ----- ----- ----- ---- HPV RESUL TS: HPV mRNA E6/E7 : No HPV mRNA Detec macrina NOTE: This high risk HPV mRNA assay detec ts fourt een high- risk HPV types (16, 18, 31, 33, 35, 39, 45, 51, 52, 56, 58, 59, 66, 68) witho ut diffe renti ation . COMME NT: Note: This speci men was revie wed by a Cytot echno logis t and/o r Patho logis t (as indic ated in this repor t) after evalu ation using the Thinp rep Imagi ng Syste m. CLINI YANETH INFOR MATIO N: Menst rual Statu s: LMP (if appli cable ): Clini yaneth Histo ry/Pr eviou s Pap: Type of Neopl casey (if appli cable ): Signi fican t Clini yaneth Findi ngs: Other Histo ry: Hormo dariela (if appli cable ): PAP EDUCA JASVIR L NOTE: The Pap Test is a scree karen test with an inher ent false negat lanette rate. Liqui d-bas ed sampl ing may decre ase, but will not elimi david, false negat lanette resul ts. A negat lanette resul t does not precl ude the prese nce and/o r devel opmen t of disea se, since the prese nce of abnor mal cells in the sampl e depen ds on the locat ion of the lesio n and sampl ing techn ique. Violetta nued regul ar scree karen is the best metho d of cance r preve ntion . If repor macrina cytol ogic findi ng do not corre late with physi yaneth and/o r histo rical findi ngs, furth er inves tigat ion is recom jameson d, as clini dre nye nted. Not Available [facility] Infectious Disease [address] [place], [address], 06/04/2022 18:44:13 08/23/20 22 08/23/2022 VITAM IN D, 25-OH (TOTA L D2/D3 ) vitamin D, 25-hydroxy, total 52.9 NG/mL 30.0-1 00.0 Sugge stive of Defic iency : <20 ng/mL Sugge stive of Insuf ficie ncy: 20-29 ng/mL Sugge stive of Suffi cienc y: 30-10 0 ng/mL Sugge stive of Toxic ity: >150 ng/mL Not Available [facility] Infectious Disease [address] [place], [address], 08/24/2022 02:09:28 07/25/2007/25/2023 CBC W/DIF F WBC 5.6 10'3/ uL 3.6-10 .2 Not Available [facility] (Lab) [address], [place], [address], 07/26/2023 07:41:18 07/25/20 23 07/25/2023 CBC W/DIF F RBC 4.67 10'6/ uL (based on docume nted legal sex) 4.10-5 .30 Not Available [facility] (Lab) [address], [place], [address], 07/26/2023 07:41:18 07/25/20 23 07/25/2023 CBC W/DIF F HGB 13.0 g/dL (based on docume nted legal sex) 11.9-1 5.8 Not Available [facility] (Lab) [address], [place], [address], 07/26/2023 07:41:18 07/25/20 23 07/25/2023 CBC W/DIF F HCT 41.9 % (based on docume nted legal sex) 37.4-4 8.3 Not Available [facility] (Lab) [address], [place], [address], 07/26/2023 07:41:18 07/25/20 23 07/25/2023 CBC W/DIF F MCV 89.7 fL 82.0-9 9.0 Not Available [facility] (Lab) [address], [place], [address], 07/26/2023 07:41:18 07/25/20 23 07/25/2023 CBC W/DIF F MCH 27.8 pg 27.0-3 3.0 Not Available [facility] (Lab) [address], [place], [address], 07/26/2023 07:41:18 07/25/20 23 07/25/2023 CBC W/DIF F MCHC 31.0 g/dL 32.0-3 6.0 low Not Available [facility] (Lab) [address], [place], [address], 07/26/2023 07:41:18 07/25/20 23 07/25/2023 CBC W/DIF F RDW 12.4 % 11.0-1 5.0 Not Available [facility] (Lab) [address], [place], [address], 07/26/2023 07:41:18 07/25/20 23 07/25/2023 CBC W/DIF F plt 258 10'3/ uL 150-45 0 Not Available [facility] (Lab) [address], [place], [address], 07/26/2023 07:41:18 07/25/2007/25/2023 CBC W/DIF F MPV 12.7 fL 9.8-12 .7 Not Available [facility] (Lab) [address], [place], [address], 07/26/2023 07:41:18 07/25/2007/25/2023 CBC W/DIF F NRBC's 0.0 % 0 Not Available [facility] (Lab) [address], [place], [address], 07/26/2023 07:41:18 07/25/20 23 07/25/2023 CBC W/DIF F absolute NRBCs 0.0 10'3/ uL 0 Not Available [facility] (Lab) [address], [place], [address], 07/26/2023 07:41:18 07/25/20 23 07/25/2023 CBC W/DIF F neutrophils 57.3 % 37.0-7 2.0 Not Available [facility] (Lab) [address], [place], [address], 07/26/2023 07:41:18 07/25/20 23 07/25/2023 CBC W/DIF F lymphocytes 32.1 % 16.0-4 8.0 Not Available [facility] (Lab) [address], [place], [address], 07/26/2023 07:41:18 07/25/20 23 07/25/2023 CBC W/DIF F monocytes 7.0 % 4.0-14 .0 Not Available [facility] (Lab) [address], [place], [address], 07/26/2023 07:41:18 07/25/20 23 07/25/2023 CBC W/DIF F eosinophils 2.1 % 0.0-9. 0 Not Available [facility] (Lab) [address], [place], [address], 07/26/2023 07:41:18 07/25/20 23 07/25/2023 CBC W/DIF F basophils 1.1 % 0.0-2. 0 Not Available [facility] (Lab) [address], [place], [address], 07/26/2023 07:41:18 07/25/20 23 07/25/2023 CBC W/DIF F immature granulocytes 0.4 % no define d refere nce range Not Available [facility] (Lab) [address], [place], [address], 07/26/2023 07:41:18 07/25/20 23 07/25/2023 CBC W/DIF F absolute neutrophils 3.2 10'3/ uL 1.1-6. 0 Not Available [facility] (Lab) [address], [place], [address], 07/26/2023 07:41:18 07/25/20 23 07/25/2023 CBC W/DIF F absolute lymphocytes 1.8 10'3/ uL 0.7-3. 4 Not Available [facility] (Lab) [address], [place], [address], 07/26/2023 07:41:18 07/25/20 23 07/25/2023 CBC W/DIF F absolute monocytes 0.4 10'3/ uL 0.3-1. 0 Not Available [facility] (Lab) [address], [place], [address], 07/26/2023 07:41:18 07/25/20 23 07/25/2023 CBC W/DIF F absolute eosinophils 0.1 10'3/ uL 0.0-0. 6 Not Available [facility] (Lab) [address], [place], [address], 07/26/2023 07:41:18 07/25/20 23 07/25/2023 CBC W/DIF F absolute basophils 0.1 10'3/ uL 0.0-0. 1 Not Available [facility] (Lab) [address], [place], [address], 07/26/2023 07:41:18 07/25/20 23 07/25/2023 CBC W/DIF F absolute immature granulocytes 0.0 10'3/ uL 0.00-0 .10 2022 5:39 AM: P indic ates parti al resul ts on a panel have been relea sed. Addit ional resul ts will follo w. 2022 5:40 AM: This resul t has been final verif ied. No addit ional or quiroz ed resul ts are expec macrina. Not Available [facility] (Lab) [address], [place], [address], 07/26/2023 07:41:18 07/25/2007/25/2023 HEMOG LOBIN A1C hemoglobin A1C 5.1 % 0-5.6 The Ameri can Diabe morgan Assoc iatio n recom mends that a prima ry goal of thera py mayra bowen be a HBA1C of < 7% and that physi cians shoul d reeva luate the treat ment regim en in patie nts with HBA1C value s consi stent ly > 8%. <5.7% Kira l 5.7 - 6.4% Incre ased risk for diabe morgan >=6.5 % Diagn ostic of diabe morgan <7.0% Goal of thera py >8.0% Actio n sugge sted Not Available [facility] (Lab) [address], [place], [address], 07/26/2023 07:41:18 07/25/2007/25/2023 LIPID PANEL ,AMA (LDL- CALC) total cholesterol 175 mg/dL 0-199 Not Available [facility] (Lab) [address], [place], [address], 07/26/2023 07:41:19 07/25/2007/25/2023 LIPID PANEL ,AMA (LDL- CALC) triglyceride s 51 mg/dL 0.00-1 50.00 NCEP Refer ence Value s for Trigl yceri nat: Kira l: <150 mg/dL Borde rline High: 150 - 199 mg/dL High: 200 - 499 mg/dL Very High: >/= 500 mg/dL Not Available [facility] (Lab) [address], [place], [address], 07/26/2023 07:41:19 07/25/2007/25/2023 LIPID PANEL ,AMA (LDL- CALC) HDL cholesterol 54 mg/dL >40 Not Available [facility] (Lab) [address] [place], [address], 07/26/2023 07:41:19 07/25/2007/25/2023 LIPID PANEL ,AMA (LDL- CALC) LDL cholesterol 108 mg/dL 0-99 high Cutof f value s recom jameson d by the Natio nal Susana stero l Educa tion Progr am: JOELLEN ABLE: Susana stero l <200 mg/dL LDL <100 mg/dL BORDE RLINE : Susana stero l 200-2 39 mg/dL LDL 101-1 59 mg/dL HIGHE R RISK: Susana stero l >240 mg/dL LDL >160 mg/dL , HDL <40 mg/dL Not Available [facility] (Lab) [address], [place], [address], 07/26/2023 07:41:19 07/25/2007/25/2023 LIPID PANEL ,AMA (LDL- CALC) non-HDL cholesterol 121 mg/dL no refere nce range A reaso nable goal for non-H DL susana stero l is one that is 30 mg/dL highe r than the LDL susana stero l goal. Not Available [facility] (Lab) [address], [place], [address], 07/26/2023 07:41:19 07/25/2007/25/2023 LIPID PANEL ,AMA (LDL- CALC) chol/HDL ratio 3.2 . 0.0-5. 0 On February 18, 2023, [facility] labor atori es gabriella ed the equat ion for calcu latin g estim ated low-d ensit y lipop rotei n-cho leste rol (LDL- C) from the Fried jared equat ion to the Caprice n/Suellen phillips equat ion. This new equat ion is only valid for lipid panel s with trigl yceri nat < 400 mg/dL . Studi es wilmar demon strat ed that this new equat ion will impro ve the accur acy of LDL-C , espec ially in scena breaux when LDL-C thao ntrat ions are relat ively low (< 100 mg/dL ), trigl yceri nat are eleva macrina, or patie nt is non-f astin g. Refer ences : - Caprice mcnamara, Christian Maya, Jhoan Malone , Beltran lowery, Rui Fay, Rui martin, [facility] , and [employer] . 2013. Comp ariso n of a Novel Metho d vs the Fried jared Equat ion for Estim ating Low-D ensit y Lipop rotei n Susana stero l Level s from the Stand ana Lipid Profmercedes chowdhury. JOSE F: The Journ al of the Ameri can Medic al Assoc iatio n 310 (19): 2060- . - Tong pickett V, Amairani J, Rand pickett A, Hattie M, Tramaine vines R, Alfonso pickett E, Rosa [facility] RS, Rafael SR, Caprice mcnamara SS. Fast ing Versu s Nonfa sting and Low-D ensit y Lipop rotei n Susana stero l Accur acy. Circu latio n. 2017Oct 28;137 (1):1 0-19. Not Available [facility] (Lab) [address], [place], [address], 07/26/2023 07:41:19 07/25/20 23 07/25/2023 CMP(C OMPRE HENSI VE METAB OLIC PANEL ) sodium 138 mmol/ L 133-14 6 Not Available [facility] (Lab) [address], [place], [address], 07/26/2023 07:41:19 07/25/2007/25/2023 CMP(C OMPRE HENSI VE METAB OLIC PANEL ) potassium 4.2 mmol/ L 3.5-5. 1 Not Available [facility] (Lab) [address], [place], [address], 07/26/2023 07:41:19 07/25/20 23 07/25/2023 CMP(C OMPRE HENSI VE METAB OLIC PANEL ) chloride 105 mmol/ L 98-107 Not Available [facility] (Lab) [address], [place], [address], 07/26/2023 07:41:19 07/25/20 23 07/25/2023 CMP(C OMPRE HENSI VE METAB OLIC PANEL ) carbon dioxide 27 mmol/ L 21-31 Not Available [facility] (Lab) [address], [place], [address], 07/26/2023 07:41:19 07/25/20 23 07/25/2023 CMP(C OMPRE HENSI VE METAB OLIC PANEL ) anion gap 6 mmol/ L 4-13 Not Available [facility] (Lab) [address], [place], [address], 07/26/2023 07:41:19 07/25/20 23 07/25/2023 CMP(C OMPRE HENSI VE METAB OLIC PANEL ) blood urea nitrogen 12 mg/dL 7-25 Not Available [facility] (Lab) [address], [place], [address], 07/26/2023 07:41:19 07/25/20 23 07/25/2023 CMP(C OMPRE HENSI VE METAB OLIC PANEL ) creatinine 0.85 mg/dL 0.60-1 .30 Not Available [facility] (Lab) [address], [place], [address], 07/26/2023 07:41:19 07/25/20 23 07/25/2023 CMP(C OMPRE HENSI VE METAB OLIC PANEL ) egfrcr (CKD-epi 2020) 88 mL/mi n/1.7 3_m2 >=60 Not Available [facility] (Lab) [address], [place], [address], 07/26/2023 07:41:19 07/25/20 23 07/25/2023 CMP(C OMPRE HENSI VE METAB OLIC PANEL ) calcium 9.6 mg/dL 8.3-10 .5 Not Available [facility] (Lab) [address], [place], [address], 07/26/2023 07:41:19 07/25/20 23 07/25/2023 CMP(C OMPRE HENSI VE METAB OLIC PANEL ) glucose 83 mg/dL 70-100 Not Available [facility] (Lab) [address], [place], [address], 07/26/2023 07:41:19 07/25/20 23 07/25/2023 CMP(C OMPRE HENSI VE METAB OLIC PANEL ) protein, total 7.4 g/dL 6.4-8. 3 Not Available [facility] (Lab) [address], [place], [address], 07/26/2023 07:41:19 07/25/20 23 07/25/2023 CMP(C OMPRE HENSI VE METAB OLIC PANEL ) albumin 4.2 g/dL 3.5-5. 0 Not Available [facility] (Lab) [address], [place], [address], 07/26/2023 07:41:19 07/25/20 23 07/25/2023 CMP(C OMPRE HENSI VE METAB OLIC PANEL ) ALT 9 units /L 9-43 Not Available [facility] (Lab) [address], [place], [address], 07/26/2023 07:41:19 07/25/20 23 07/25/2023 CMP(C OMPRE HENSI VE METAB OLIC PANEL ) alkaline phosphatase 48 units /L 34-104 Not Available [facility] (Lab) [address], [place], [address], 07/26/2023 07:41:19 07/25/20 23 07/25/2023 CMP(C OMPRE HENSI VE METAB OLIC PANEL ) AST 18 units /L 13-39 Not Available [facility] (Lab) [address], [place], [address], 07/26/2023 07:41:19 07/25/20 23 07/25/2023 CMP(C OMPRE HENSI VE METAB OLIC PANEL ) bilirubin, total 0.5 mg/dL 0.2-1. 2 Not Available [facility] (Lab) [address] [place], [address], 07/26/2023 07:41:19 07/25/20 23 07/25/2023 TSH, REFLE X FREE T4 TSH 2.03 uIU/m L 0.30-5 .33 Not Available [facility] (Lab) [address], [place], [address], 07/26/2023 07:41:20 07/25/20 23 07/25/2023 VITAM IN D, 25-OH (TOTA L D2/D3 ) vitamin D, 25-hydroxy, total 32.2 NG/mL 30.0-1 00.0 Sugge stive of Defic iency : <20 ng/mL Sugge stive of Insuf ficie ncy: 20-29 ng/mL Sugge stive of Suffi cienc y: 30-10 0 ng/mL Sugge stive of Toxic ity: >150 ng/mL Not Available [facility] (Lab) [address], [place], [address], 07/26/2023 07:41:20 08/06/20 24 08/06/2024 CBC W/DIF F WBC 8.0 10'3/ uL 3.5-10 .5 Not Available [facility] (Lab) [address] , [place], [address], 08/07/2024 08:11:17 08/06/20 24 08/06/2024 CBC W/DIF F RBC 4.71 10'6/ uL (based on docume nted legal sex) 3.80-5 .20 Not Available [facility] (Lab) [address], [place], [address], 08/07/2024 08:11:17 08/06/20 24 08/06/2024 CBC W/DIF F HGB 13.3 g/dL (based on docume nted legal sex) 11.6-1 5.4 Not Available [facility] (Lab) [address], [place], [address], 08/07/2024 08:11:17 08/06/20 24 08/06/2024 CBC W/DIF F HCT 42.4 % (based on docume nted legal sex) 34.0-4 5.0 Not Available [facility] (Lab) [address], [place], [address], 08/07/2024 08:11:17 08/06/20 24 08/06/2024 CBC W/DIF F MCV 90.0 fL 80.0-9 9.0 Not Available [facility] (Lab) [address], [place], [address], 08/07/2024 08:11:17 08/06/20 24 08/06/2024 CBC W/DIF F MCH 28.2 pg 27.0-3 4.0 Not Available [facility] (Lab) [address], [place], [address], 08/07/2024 08:11:17 08/06/20 24 08/06/2024 CBC W/DIF F MCHC 31.4 g/dL 32.0-3 5.5 low Not Available [facility] (Lab) [address], [place], [address], 08/07/2024 08:11:17 08/06/20 24 08/06/2024 CBC W/DIF F RDW 12.5 % 11.0-1 5.0 Not Available [facility] (Lab) [address], [place], [address], 08/07/2024 08:11:17 08/06/20 24 08/06/2024 CBC W/DIF F plt 293 10'3/ uL 150-40 0 Not Available [facility] (Lab) [address], [place], [address], 08/07/2024 08:11:17 08/06/20 24 08/06/2024 CBC W/DIF F MPV 12.4 fL 8.8-12 .1 high Not Available [facility] (Lab) [address], [place], [address], 08/07/2024 08:11:17 08/06/20 24 08/06/2024 CBC W/DIF F NRBC's 0.0 % 0.0 Not Available [facility] (Lab) [address], [place], [address], 08/07/2024 08:11:17 08/06/20 24 08/06/2024 CBC W/DIF F absolute NRBCs 0.0 10'3/ uL no refere nce range establ ished Not Available [facility] (Lab) [address], [place], [address], 08/07/2024 08:11:17 08/06/20 24 08/06/2024 CBC W/DIF F neutrophils 62.1 % 34.0-7 3.0 Not Available [facility] (Lab) [address], [place], [address], 08/07/2024 08:11:17 08/06/20 24 08/06/2024 CBC W/DIF F lymphocytes 26.7 % 15.0-5 0.0 Not Available [facility] (Lab) [address], [place], [address], 08/07/2024 08:11:17 08/06/20 24 08/06/2024 CBC W/DIF F monocytes 7.8 % 1.0-15 .0 Not Available [facility] (Lab) [address], [place], [address], 08/07/2024 08:11:17 08/06/20 24 08/06/2024 CBC W/DIF F eosinophils 2.3 % 0.0-8. 0 Not Available [facility] (Lab) [address], [place], [address], 08/07/2024 08:11:17 08/06/20 24 08/06/2024 CBC W/DIF F basophils 1.0 % 0.0-2. 0 Not Available [facility] (Lab) [address], [place], [address], 08/07/2024 08:11:17 08/06/20 24 08/06/2024 CBC W/DIF F immature granulocytes 0.1 % no define d refere nce range Not Available [facility] (Lab) [address], [place], [address], 08/07/2024 08:11:17 08/06/20 24 08/06/2024 CBC W/DIF F absolute neutrophils 5.0 10'3/ uL 1.5-8. 0 Not Available [facility] (Lab) [address], [place], [address], 08/07/2024 08:11:17 08/06/20 24 08/06/2024 CBC W/DIF F absolute lymphocytes 2.1 10'3/ uL 1.0-4. 0 Not Available [facility] (Lab) [address], [place], [address], 08/07/2024 08:11:17 08/06/20 24 08/06/2024 CBC W/DIF F absolute monocytes 0.6 10'3/ uL 0.2-1. 0 Not Available [facility] (Lab) [address], [place], [address], 08/07/2024 08:11:17 08/06/20 24 08/06/2024 CBC W/DIF F absolute eosinophils 0.2 10'3/ uL 0.0-0. 6 Not Available [facility] (Lab) [address], [place], [address], 08/07/2024 08:11:17 08/06/20 24 08/06/2024 CBC W/DIF F absolute basophils 0.1 10'3/ uL 0.0-0. 3 Not Available [facility] (Lab) [address], [place], [address], 08/07/2024 08:11:17 08/06/20 24 08/06/2024 CBC W/DIF F absolute immature granulocytes 0.0 10'3/ uL 0.00-0 .10 08/07 6:08 AM: P indic ates parti al resul ts on a panel have been relea sed. Addit ional resul ts will follo w. 08/07 6:08 AM: This resul t has been final verif ied. No addit ional or quiroz ed resul ts are expec macrina. Not Available [facility] (Lab) [address], [place], [address], 08/07/2024 08:11:17 08/06/20 24 08/06/2024 LIPID PANEL ,AMA (LDL- CALC) total cholesterol 175 mg/dL 0-199 Not Available [facility] (Lab) [address], [place], [address], 08/07/2024 08:11:17 08/06/20 24 08/06/2024 LIPID PANEL ,AMA (LDL- CALC) triglyceride s 54 mg/dL 0-150 NCEP Refer ence Value s for Trigl yceri nat: Kira l: <150 mg/dL Borde rline High: 150 - 199 mg/dL High: 200 - 499 mg/dL Very High: >/= 500 mg/dL Not Available [facility] (Lab) [address], [place], [address], 08/07/2024 08:11:17 08/06/20 24 08/06/2024 LIPID PANEL ,AMA (LDL- CALC) HDL cholesterol 52 mg/dL >40 Not Available [facility] (Lab) [address], [place], [address], 08/07/2024 08:11:17 10/1108/06/2024 LIPID PANEL ,AMA (LDL- CALC) LDL cholesterol 109 mg/dL 0-99 high Cutof f value s recom jameson d by the Natio nal Susana stero l Educa tion Progr am: JOELLEN ABLE: Susana stero l <200 mg/dL LDL <100 mg/dL BORDE RLINE : Susana stero l 200-2 39 mg/dL LDL 101-1 59 mg/dL HIGHE R RISK: Susana stero l >240 mg/dL LDL >160 mg/dL , HDL <40 mg/dL Not Available [facility] (Lab) [address], [place], [address], 08/07/2024 08:11:17 08/06/2008/06/2024 LIPID PANEL ,AMA (LDL- CALC) non-HDL cholesterol 123 mg/dL no refere nce range A reaso nable goal for non-H DL susana stero l is one that is 30 mg/dL highe r than the LDL susana stero l goal. Not Available [facility] (Lab) [address], [place], [address], 08/07/2024 08:11:17 08/06/2008/06/2024 LIPID PANEL ,AMA (LDL- CALC) chol/HDL ratio 3.4 . 0.0-5. 0 On February 18, 2023, [facility] labor atori henry quiroz ed the equat ion for calcu latin g estim ated low-d ensit y lipop rotei n-cho leste rol (LDL- C) from the Fried jared equat ion to the Caprice mcnamara/Suellen phillips equat ion. This new equat ion is only valid for lipid panel s with trigl yceri nat < 400 mg/dL . Savanahi es have demon strat ed that this new equat ion will impro ve the accur acy of LDL-C , espec ially in scena breaux when LDL-C thao ntrat ions are relat ively low (< 100 mg/dL ), trigl yceri nat are eleva macrina, or patie nt is non-f astin g. Refer ences : - Christian Belle, Jhoan Malone , Beltran lowery, Rui Fay, Rui martin, Sebastian koch , and [employer] . 2013. Comp ariso n of a Novel Metho d vs the Fried jared Equat ion for Estim ating Low-D ensit y Lipop rotei n Susana stero l Level s from the Stand ana Lipid Profi le. JOSE F: The Journ al of the Ameri can Medic al Assoc iatio n 310 (19): 2060- . - Tong pickett V, Amairani J, Rand ar A, Hattie M, Tramaine vines R, Alfonso pickett E, Rosa koch RS, Rafael SR, Caprice mcnamara SS. Fast ing Versu s Nonfa sting and Low-D ensit y Lipop rotei n Susana stero l Accur acy. Circu latio n. 2017Oct 28;137 (1):1 0-19. Not Available [facility] (Lab) [address] [place], [address], 08/07/2024 08:11:17 08/06/20 24 08/06/2024 CMP(C OMPRE HENSI VE METAB OLIC PANEL ) sodium 140 mmol/ L 133-14 6 Not Available [facility] (Lab) [address] [place], [address], 08/07/2024 08:11:18 08/06/20 24 08/06/2024 CMP(C OMPRE HENSI VE METAB OLIC PANEL ) potassium 3.8 mmol/ L 3.5-5. 1 Not Available [facility] (Lab) [address] [place], [address], 08/07/2024 08:11:18 08/06/20 24 08/06/2024 CMP(C OMPRE HENSI VE METAB OLIC PANEL ) chloride 103 mmol/ L 98-107 Not Available [facility] (Lab) [address] [place], [address], 08/07/2024 08:11:18 08/06/20 24 08/06/2024 CMP(C OMPRE HENSI VE METAB OLIC PANEL ) carbon dioxide 29 mmol/ L 21-31 Not Available [facility] (Lab) [address], [place], [address], 08/07/2024 08:11:18 08/06/20 24 08/06/2024 CMP(C OMPRE HENSI VE METAB OLIC PANEL ) anion gap 8 mmol/ L 4-13 Not Available [facility] (Lab) [address], [place], [address], 08/07/2024 08:11:18 08/06/2008/06/2024 CMP(C OMPRE HENSI VE METAB OLIC PANEL ) blood urea nitrogen 12 mg/dL 7-25 Not Available [facility] (Lab) [address], [place], [address], 08/07/2024 08:11:18 08/06/20 24 08/06/2024 CMP(C OMPRE HENSI VE METAB OLIC PANEL ) creatinine 0.86 mg/dL 0.60-1 .30 Not Available [facility] (Lab) [address], [place], [address], 08/07/2024 08:11:18 08/06/20 24 08/06/2024 CMP(C OMPRE HENSI VE METAB OLIC PANEL ) egfrcr (CKD-epi 2020) 86 mL/mi n/1.7 3_m2 >=60 Not Available [facility] (Lab) [address], [place], [address], 08/07/2024 08:11:18 08/06/2008/06/2024 CMP(C OMPRE HENSI VE METAB OLIC PANEL ) calcium 9.6 mg/dL 8.3-10 .5 Not Available [facility] (Lab) [address], [place], [address], 08/07/2024 08:11:18 08/06/20 24 08/06/2024 CMP(C OMPRE HENSI VE METAB OLIC PANEL ) glucose 90 mg/dL 70-100 Not Available [facility] (Lab) [address], [place], [address], 08/07/2024 08:11:18 08/06/20 24 08/06/2024 CMP(C OMPRE HENSI VE METAB OLIC PANEL ) protein, total 7.0 g/dL 6.4-8. 3 Not Available [facility] (Lab) [address], [place], [address], 08/07/2024 08:11:18 08/06/2008/06/2024 CMP(C OMPRE HENSI VE METAB OLIC PANEL ) albumin 4.3 g/dL 3.5-5. 0 Not Available [facility] (Lab) [address], [place], [address], 08/07/2024 08:11:18 08/06/20 24 08/06/2024 CMP(C OMPRE HENSI VE METAB OLIC PANEL ) ALT 11 units /L 9-43 Not Available [facility] (Lab) [address], [place], [address], 08/07/2024 08:11:18 08/06/20 24 08/06/2024 CMP(C OMPRE HENSI VE METAB OLIC PANEL ) alkaline phosphatase 52 units /L 34-104 Not Available [facility] (Lab) [address], [place], [address], 08/07/2024 08:11:18 08/06/20 24 08/06/2024 CMP(C OMPRE HENSI VE METAB OLIC PANEL ) AST 19 units /L 13-39 Not Available [facility] (Lab) [address], [place], [address], 08/07/2024 08:11:18 08/06/20 24 08/06/2024 CMP(C OMPRE HENSI VE METAB OLIC PANEL ) bilirubin, total 0.6 mg/dL 0.2-1. 2 Not Available [facility] (Lab) [address], [place], [address], 08/07/2024 08:11:18 08/06/20 24 08/06/2024 TSH, REFLE X FREE T4 TSH 2.20 uIU/m L 0.30-5 .33 Not Available [facility] (Lab) [address], [place], [address], 08/07/2024 08:11:18 08/06/20 24 08/06/2024 VITAM IN D, 25-OH (TOTA L D2/D3 ) vitamin D, 25-hydroxy, total 42.7 NG/mL 30.0-1 00.0 Sugge stive of Defic iency : <20 ng/mL Sugge stive of Insuf ficie ncy: 20-29 ng/mL Sugge stive of Suffi cienc y: 30-10 0 ng/mL Sugge stive of Toxic ity: >150 ng/mL Not Available [facility] (Lab) [address], [place], [address], 08/07/2024 08:11:18 08/06/20 24 08/06/2024 HEMOG LOBIN A1C hemoglobin A1C 5.2 % 0-5.6 The Ameri can [facility] i[facility] n recom mends that a prima ry goal of thera py mayra d be a HBA1C of < 7% and that physi cians shoul d reeva luate the treat ment regim en in patie nts with HBA1C value s consi stent ly > 8%. <5.7% Kira l 5.7 - 6.4% Incre ased risk for diabe morgan >=6.5 % Diagn ostic of diabe morgan <7.0% Goal of thera py >8.0% Actio n sugge sted Not Available [facility] (Lab) [address] , [place], [address], 08/07/2024 08:11:19 10/31/19 22 MAMMO , scree karen, digit al, bilat eral No observ ation record ed. [facility] [address], [place], [address], 11/08/2021 10:03:42 06/25/20 24 06/25/2024 MAMMO , scree karen, bilat eral No observ ation record ed. [facility] [address], [place], [address], 06/26/2024 10:07:30 Result Notes None recorded. Problems Name Problem SNOMED Code Status Onset Date Resolution Date Notes Provider Name and Address Organization Details Recorded Time Pregnanc y, childbir th and puerperi um finding Completed 201504/16/2021 Encntr for suprvsn of normal first preg, third trimeste r;Practi ce ID: 0001 Linda Pineda [facility] 15:13:26 Normal pregnanc y in multigra estela [id number] Completed 201504/16/2021 Encounte r for suprvsn of normal pregnanc y, third trimeste r;Practi ce ID: 0001 Linda winn, [facility] 15:13:17 Gestatio n period, 39 weeks [id number] Completed 201504/16/2021 39 weeks gestatio n of pregnanc y;Practi ce ID: 0001 Linda winn [facility] 15:13:07 Lacerati on of female perineum Completed 201504/16/2021 Second degree perineal lacerati on during delivery ;Practic e ID: 0001 Linda winn, [facility] 15:13:10 Single live from singleto n pregnanc y [id number] Completed 201504/16/2021 Single live ;Pr actice ID: 0001 Linda winn, [facility] 15:13:31 Lochia finding Completed 201504/16/2021 Encounte r for routine postpart um follow-u p;Practi ce ID: 0001 Linda winn [facility] 15:13:[address] Concept Completed 201604/16/2021 Encntr for it assistant exam (general ) (routine ) w/o abn findings ;Practic e ID: 0001 Linda winn [facility] 15:13:34 Pregnanc y test negative [id number] Completed 201804/16/2021 Encounte r for pregnanc y test, result negative ;Practic e ID: 0001 Linda winn [facility] 15:13:20 Finding of regulari ty of menstrua l cycle Completed 201804/16/2021 Irregula r menstrua tion, unspecif ied;Prac eric ID: 0001 Linda [facility]ined[facility] 15:13:02 Microsco pic hematuri a [id number] Completed 201404/16/2021 MICROSCO PIC HEMATURI A;Record ed Elsewher e: No Locat ion: [facility] S ource: EHR Senior Copywriter trudi: N Practi ce ID: 0001 Jhon lable Time: 09:30:00 AM Linda [facility] 15:13:14 Syphilis test finding [id number] Completed 201404/16/2021 Encntr screen for infectio ns w sexl mode of transmis s;Record ed Elsewher e: No Locat ion: [facility] S ource: EHR Senior Copywriter trudi: N Practi ce ID: [email or web address] Jhon lable Time: 02:00:00 PM Linda winn [facility] 15:13:37 Pregnanc y, childbir th and puerperi um finding Completed 201504/16/2021 Encntr for suprvsn of normal first preg, first trimeste r;Record ed Elsewher e: No Locat ion: Cristhian vines [facility] S ource: EHR Senior Copywriter trudi: N Leninti ce ID: 0001 Jhon lable Time: 04:30:00 PM Linda Pineda [facility] 1 15:13:21 Pregnanc y, childbir th and puerperi um finding Completed 201504/16/2021 Encounte r for supervis ion of normal 1st pregnanc y, 2nd trimeste r;Record ed Elsewher e: No Locat ion: Cristhian vines [facility] S ource: EHR Senior Copywriter trudi: N Leninti ce ID: [id number] Jhon lable Time: 04:15:00 PM Linda Pineda [facility] [address] 15:13:[address] Concept Completed 201404/16/2021 Encntr for general adult medical exam w/o abnormal findings ;Recorde d Elsewher e: No Locat ion: Cristhian vines [facility] S ource: EHR Senior Copywriter trudi: N Leninti ce ID: 0001 Jhon lable Time: 02:00:00 PM Linda Pineda [facility] 1 15:13:33 Screenin g for malignan t neoplasm of cervix Completed 201104/16/2021 Screenin g for malignan t neoplasm s of the cervix;R ecorded Elsewher e: No Locat ion: Cristhian vines [facility] S ource: EHR Senior Copywriter trudi: N Leninti ce ID: [id number] Jhon lable Time: 01:00:00 PM Linda Pineda [facility] 1 15:13:27 Urinary tract infectio n followin g delivery [id number] Completed 201504/16/2021 UTI postpart um;Recor ded Elsewher e: No Locat ion: Cristhian vines [facility] S ource: EHR Senior Copywriter trudi: N Practi ce ID: 0001 Jhon lable Time: 11:00:00 AM Linda Pineda [facility] 15:13:41 Secondar y amenorrh ea [id number] Completed 201404/16/2021 Secondar y amenorrh ea;Recor ded Elsewher e: No Locat ion: [facility] S ource: EHR Senior Copywriter trudi: N Practi ce ID: 0001 Jhon lable Time: 02:00:00 PM Linda Pined[facility] 15:13:29 Gestatio n less than 9 weeks [id number] Completed 201404/16/2021 Less than 8 weeks gestatio n of pregnanc y;Record ed Elsewher e: No Locat ion: [facility] S ource: EHR Senior Copywriter trudi: N Leninti ce ID: 0001 Jhon lable Time: 02:00:00 PM Linda Pined[facility] 15:13:05 Body mass index 25-29 - overweig ht [id number] Completed 201404/16/2021 Body mass index (BMI) 27.0-27. 9, adult;Re corded Elsewher e: No Locat ion: [facility] S ource: EHR Senior Copywriter trudi: N Practi ce ID: 0001 Jhon lable Time: 02:00:00 PM Linda [facility] 15:12:59 Speciali zed medical examinat ion Completed 201204/16/2021 Gynecolo gical Examinat ion;Catarino rded Elsewher e: No Locat ion: [facility] S ource: EHR Senior Copywriter trudi: N Practi ce ID: 0001 Jhon lable Time: 11:00:00 AM Linda [facility]ined[facility] 15:13:36 Pregnanc y detectio n examinat ion Completed 201404/16/2021 Encounte r for pregnanc y test, result positive ;Recorde d Elsewher e: No Locat ion: [facility] S ource: EHR Senior Copywriter trudi: N Practi ce ID: 0001 Jhon lable Time: 04:30:00 PM Linda Pineda [facility] 15:13:18 Adult health examinat ion Completed 201404/16/2021 ROUTINE MEDICAL EXAM;Rec orded Elsewher e: No [facility]: EHR Senior Copywriter trudi: N Practi ce ID: 0001 Jhon lable Time: 09:30:00 AM Linda Pineda [facility] 15:12:57 Educatio n Completed 201504/16/2021 Encounte r for other general counseli ng and advice on contrace ption;Re corded Elsewher e: No Locat ion: [facility] S ource: EHR Senior Copywriter trudi: N Practi ce ID: 0001 Jhon lable Time: 11:00:00 AM Linda Pineda [facility] 15:13:00 Infectio n screenin g Completed 201404/16/2021 Encounte r for screenin g for oth infec/pa rastc diseases ;Recorde d Elsewher e: No Locat ion: [facility] S ource: EHR Senior Copywriter trudi: N Practi ce ID: 0001 Jhon lable Time: 02:00:00 PM Linda Pineda [facility] 15:13:09 Problem Notes None recorded. Procedures Surgical History Date Name Laterality Status Provider Name and Address Organization Details Recorded Time 06/21/20 Date of Last Pap Smear completed Catalina Gauthier [facility] 06/21/2023 12:59:32 04/18/20 Date of Last Mammogram completed Catalina Gauthier [facility] 06/21/2023 10:10:59 01/22/20 19 completed [facility] 04/24/2021 09:43:09 01/22/20 19 Date of Last Colonoscopy completed [facility] 04/24/2021 09:43:09 10/27/19 02 Ovarian Cystectomy completed Catalinatorres Gauthier [facility] 06/21/2023 10:13:31 10/27/18 98 [facility] 06/21/2023 10:13:53 Imaging Results Imaging Date Name Status LastModified by Organiz ation Details LastModified Time 10/31/2021 MAMMO, screening, digital, bilateral completed [facility] [address], [place], [address], 11/08/2021 10:03:42 06/25/2024 MAMMO, screening, bilateral completed [facility] [address], [place], [address], 06/26/2024 10:07:30 Procedure Notes None recorded. Medical Equipment None Reported. Allergies No known drug allergies Medications Name Sig Start Date Stop Date Status Note LastModified by Organization Details LastModified Time daylight mis 06/21 completed Not Available Not Available Not Available Iron (ferrous sulfate) 325 mg (65 mg iron) tablet Take 1 tablet every day by oral route. 06/21 completed Not Available Not Available Not Available valacyclo vir 1 gram tablet TAKE 2 TABLETS BY MOUTH EVERY 12 HOURS FOR 1 DAY 07/02 completed Not Available Not Available Not Available Macrobid 100 mg capsule take 1 capsule by oral route every 12 hours with food 11/21 completed Prescrib ed Elsewher e: No Locat ion: Cristhian vines [facility] M odify By: primitivo salazar DateTime : 07/03/20 16 11:00:00 AM Not Available Not Available Not Available Advil 100 mg tablet take 2 tablet by oral route 4 - 6 hours as needed with food 06/21 completed Prescrib ed Elsewher e: Yes Loca tion: Cristhian vines [facility] odify By: elizabeth sanchez DateTime : 04/01/20 12 01:00:00 PM Not Available Not Available Not Available ergocalci ferol (vitamin D2) 1,250 mcg (50,000 unit) capsule TAKE 1 CAPSULE BY MOUTH EVERY WEEK 06/20 completed Not Available Not Available Not Available Vitamin D3 25 mcg (1,000 unit) capsule 1 capsule every day by oral route. 2021 active Not Available Not Available Not Avai lable Reclipsen (28) 0.15 mg-0.03 mg tablet take 1 tablet by oral route every day 04/18 completed Prescrib ed Elsewher e: No Locat ion: Cristhian vines [facility] odify By: elizabeth sanchez DateTime : 05/07/20 13 03:16:02 PM Not Available Not Available Not Available One-A-Day Womens Formula active Not Available Not Available Not Available Advil 04/24 completed Not Available Not Available Not Available Multiple Vitamins/ Womens active Not Available Not Available Not Available Probiotic 04/24 completed Not Available Not Available Not Available Multi Vitamin 9 mg iron/15 mL oral liquid active Prescrib ed Elsewher e: Yes Loca tion: Cristhian vines [facility] odify By: primitivo salazar DateTime : 01/02/20 18 08:30:00 AM Not Available Not Available Not Available Multi Vitamin 04/24 completed Not Available Not Available Not Available Adult Probiotic active Not Available Not Available No t Available Probiotic 20 billion cell sprinkle capsule active Prescrib ed Elsewher e: Yes Loca tion: Cristhian [facility] odify By: primitivo salazar DateTime : 01/02/20 18 08:30:00 AM Not Available Not Available Not Available iron 15 mg iron (75 mg)/mL oral drops 01/01 completed Prescrib ed Elsewher e: Yes [facility] By: primitivo [email or web address] DateTime : 11/21/19 17 09:30:00 AM Not Available Not Available Not Available One Daily 27 mg iron-800 mcg tablet take 1 tablet by oral route every day 01/01 completed Prescrib yue vines: Yes [facility] Kierra romodavid By: primitivo salazar DateTime : 04/18/20 14 03:00:00 PM Not Available Not Available Not Available Slow Release Iron 144 mg (45 mg iron) tablet,ex tended release active Not Available Not Available Not Available ID NOW COVID-19 Test Kit USE 1 KIT TODAY DIRECTED 05/30 completed Not Available Not Available Not Available Vitals Date Recorded Body height Body mass index (BMI) Body weight Systolic blood pressure Diastolic blood pressure Provider Name and Address Organization Details Last Updated DateTime 04/24/2021 155.58 cm 26.4 kg/m2 29856.52 g 120 mm[Hg] 78 mm[Hg] [facility] 1 09:42:58 Date Recorded Body height Body mass index (BMI) Body weight Systolic blood pressure Diastolic blood pressure Provider Name and Address Organization Details Last Updated DateTime 04/04/2020 1889.76 cm 0.2 kg/m2 85510.34 g 117 mm[Hg] 75 mm[Hg] Monica Butcher [facility] 0 10:38:31 Date Recorded Body height Body mass index (BMI) Body weight Systolic blood pressure Diastolic blood pressure Provider Name and Address Organization Details Last Updated DateTime 05/30/2022 156.21 cm 27.5 kg/m2 80562.67 g 100 mm[Hg] 70 mm[Hg] Linda [facility] 2 09:47:36 Date Recorded Body height Body mass index (BMI) Body weight Systolic blood pressure Diastolic blood pressure Provider Name and Address Organization Details Last Updated DateTime 06/21/2023 156.21 cm 27.5 kg/m2 79563.67 g 107 mm[Hg] 71 mm[Hg] Catalina Gauthier [facility] 3 10:10:17 Date Recorded Body height Body mass index (BMI) Body weight Systolic blood pressure Diastolic blood pressure Provider Name and Address Organization Details Last Updated DateTime 07/02/2024 156.21 cm 29.4 kg/m2 15159.03 g 107 mm[Hg] 75 mm[Hg] Jessica Mello [facility] 15:09:44 Social History Question Answer Notes LastModified by Organizat ion Details LastModified Time Tobacco Smoking Status Never Smoker Catalina winn, [facility] 06/21/2023 10:10:59 Do You Have An Advance Directive? No Information not available 04/24/2021 What Is Your Level Of Alcohol Consumption? Occasional Information not available 04/16/2021 How Many Years Have You Consumed Alcohol? 21 Information not available 05/30/2022 Are You Blind Or Do You Have Difficulty Seeing? No Information not available 04/16/2021 What Is Your Level Of Caffeine Consumption? Occasional Information not available 04/16/2021 How Much Tobacco Do You Chew? None Information not available 04/24/2021 In The 14 Days Before Symptom Onset, Have You Had Close Contact With A Laboratory-confir med COVID-19 While That Case Was Ill? No Information not available 04/24/2021 In The 14 Days Before Symptom Onset, Have You Had Close Contact With A Person Who Is Under Investigation For COVID-19 While That Person Was Ill? No Information not available 04/24/2021 Have You Been To An Area Known To Be High Risk For COVID-19? No Information not available 04/24/2021 Are You Deaf Or Do You Have Serious Difficulty Hearing? No Information not available 04/16/2021 What Type Of Diet Are You Following? REGULAR Information not available 04/16/2021 What Is The Highest Grade Or Level Of School You Have Completed Or The Highest Degree You Have Received? 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 No Information not available 04/24/2021 Have You Ever Been Counseled For Unhealthy Alcohol Use? No [email or web address] Information not available 06/21/2023 Do You Use Protection During Sex? Always Information not available 04/24/2021 Do You Use Your Seat Belt Or Car Seat Routinely? Yes Information not available 04/16/2021 Do You Have Smoke And Carbon Monoxide Detectors In Your Home? Yes Information not available 04/16/2021 How Much Tobacco Do You Smoke? No Information not available 04/24/2021 Do You Feel Stressed (tense, Restless, Nervous, Or Anxious, Or Unable To Sleep At Night)? [id number] Information not available 04/24/2021 Do You Use Any Illicit Or Recreational Drugs? No Information not available 04/16/2021 Do You Use Sunscreen Routinely? Yes Information not available 04/16/2021 Have You Used IV Drugs? No Information not available 04/24/2021 Sex: Unknown Functional Status Question Answer Note LastModified by Organizat ion Details LastModified Time Do you have difficulty walking or climbing stairs? No [email or web address] Information not available 06/21/2023 Are you able to walk? YESWOREST Information not available 04/16/2021 Are you able to care for yourself? Yes [email or web address] Information not available 06/21/2023 Do you have difficulty dressing or bathing? No [email or web address] Information not available 06/21/2023 What is your exercise level? Moderate Information not available 04/24/2021 Mental Status None recorded. Family History Relationship Description Onset Age of this Age Resolved Age Notes LastModified by Organization Details LastModified Time Maternal Grandmother Diabetes mellitus [email or web address] Not available 2019 10:24:48 Maternal Grandmother Disorder of thyroid gland [email or web address] Not available 2019 10:24:58 Maternal Grandmother Anemia [email or web address] Not available 2019 10:25:18 Maternal Grandmother Lactose tolerance [email or web address] Not available 2023 15:01:13 Maternal Grandmother Malignant lymphoma [email or web address] Not available 2023 15:01:13 Sister Anemia [email or web address] Not available 10:25:18 Sister Asthma [email or web address] Not available 10:26:02 Sister Cyst of ovary Not available 2023 15:01:13 Maternal Grandfather Hypertensive disorder [email or web address] Not available 2019 10:25:30 Maternal Grandfather Polyp of colon [email or web address] Not available 2023 15:01:13 Maternal Grandfather Malignant tumor of colon Not available 2020 09:43:02 Medical History Condition Response Allergies (Food, seasonal, environmental ) N Other Y Breast Cancer N Drug/Latex Allergies/Reactions N Blood Transfusion N Dermatologic Disorders N Lung Disease N Defects or Inherited Disease N Breast Problem N Gestational Diabetes N Hematologic disorders N Anesthesia Complications N History of STI N Deep Vein Thrombosis N Polycystic ovary syndrome N Anxiety Disorder N Autoimmune disease N Arthritis N Infertility N Polyps N Acid Reflux (GERD) N History of abnormal pap N Cancer N Stroke N Varicosities N Neurologic/Epilepsy N Endometriosis N High Cholesterol N Headaches N Fibromyalgia N Kidney Disease N Heart Problems N Kidney or Bladder Problems N Thyroid Problems N GI Problems N Eating Disorder N Anemia N Art (IVF or FET) N Psychiatric Illness N Ovarian Cancer N Diabetes N Pulmonary (TB, Asthma) N Hepatitis/Liver Disease N No Past Medical History N Eczema N Urinary Tract Infection N Abuse/Domestic Violence N Asthma N Trauma/Violence N Depression/ depression N Heart Disease N Pre-Eclampsia N Hypertension N Osteoporosis N Thrombophilias N Gynecological History Statement/Question Response Flow Moderate Date of Last Mammogram 04/18/2023 Date of LMP 06/25/2024 N On BCP's at Conception? N STIs/STDs N Was last menstrual period normal Y HPV Vaccine N Duration of Flow (days) 6 Current Control Method Condoms Age at First Child 35 Are cycles usually normal Y Date of Last Colonoscopy 01/21/2019 Sexually Active? Y Condoms Menses Monthly Y Age of first menstrual cycle 14 Date of Last Pap Smear 06/21/2023 Sexual Problems? N LMP Definite Desired Control Method Condoms 01/21/2019 N Obstetrics History GPAL:G 1 P 1 0 0 1 Type Value Full Term 1 Living 1 Total 1 Past Encounters Encounter ID Performer Location Encounter Start Date Encounter Closed Date Diagnosis/Indication Diagnosis SNOMED-CT Code Diagnosis ICD10 Code Diagnosis Note [id number] [facility] [address] [address] 04/04/2020 10:20:40 04/04/2020 15:50:35 Gynecologic examination [id number] Z01.419 Take Calcium with Vitamin D 1200mg daily if not receiving in daily diet. It is strongly advised to have an annual flu shot and up can obtain at most pharmacies . If you have not had a TDap shot in the last 10 years you should obtain one as well. Discussed with patient & provided with informatio n regarding Gardisil vaccine to prevent the 4 strains for HPV that cause cervical cancer if under age 26. Encourage safe sexual practices, to use condoms and limit partners if not already in a monogamous relationsh ip. Do monthly self breast exams. Have mammogram yearly or every other year depending on family history. BRCA testing is now available for patients with strong genetic history of female cancer. If interested contact the office. Engage in daily exercise of low impact aerobic exercise 45-60 minutes 4-5 times weekly. Avoid tobacco and illicit drugs as well as using moderation with alcohol intake less than 1-2 8 oz beverages daily. This lifestyle behavior pattern will lead to less health conditions and longer life span. If BMI greater than 25 weight watchers or dietary consult advised. Patient received above instructio ns, and questions have been answered. If you have any questions please call or respond to this email. Patient was made aware of the patient portal and may obtain a paper copy of today's plan if desired. Adult heal th examination [id number] Z00.00 [id number] [facility] [address] [address] 04/24/2021 09:27:31 04/24/2021 10:10:44 Gynecologic examination [id number] Z01.419 Take Calcium with Vitamin D 1200mg daily if not receiving in daily diet. It is strongly advised to have an annual flu shot and up can obtain at most pharmacies . If you have not had a TDap shot in the last 10 years you should obtain one as well. Discussed with patient & provided with informatio n regarding Gardisil vaccine to prevent the 4 strains for HPV that cause cervical cancer if under age 26. Encourage safe sexual practices, to use condoms and limit partners if not already in a monogamous relationsh ip. Do monthly self breast exams. Have mammogram yearly or every other year depending on family history. BRCA testing is now available for patients with strong genetic history of female cancer. If interested contact the office. Engage in daily exercise of low impact aerobic exercise 45-60 minutes 4-5 times weekly. Avoid tobacco and illicit drugs as well as using moderation with alcohol intake less than 1-2 8 oz beverages daily. This lifestyle behavior pattern will lead to less health conditions and longer life span. If BMI greater than 25 weight watchers or dietary consult advised. Patient received above instructio ns, and questions have been answered. If you have any questions please call or respond to this email. Patient was made aware of the patient portal and may obtain a paper copy of today's plan if desired. Normal pap/hpv hxPap/hpv last year neg hpv but unsatisfac tory pap so we will r/p this year.If wnl, consider q3-5yr pap/hpv schedule per asccp unless otherwise indicated. Decline std screeningM ammo ordered to complete after bday.No issues or concerns.B C: Condoms Adult heal th examination [id number] Z00.00 Screening mammography 24 148305 Z12.31 [id number] Mary Landers , [facility] [address] [address] 05/30/2022 09:27:50 05/30/2022 10:16:18 Gynecologic examination [id number] Z01.419 Z11.51 Take Calcium with Vitamin D 1200mg daily if not receiving in daily diet. It is strongly advised to have an annual flu shot and up can obtain at most pharmacies . If you have not had a TDap shot in the last 10 years you should obtain one as well. Discussed with patient & provided with informatio n regarding Gardisil vaccine to prevent the 4 strains for HPV that cause cervical cancer if under age 26. Encourage safe sexual practices, to use condoms and limit partners if not already in a monogamous relationsh ip. Do monthly self breast exams. Have mammogram yearly or every other year depending on family history. BRCA testing is now available for patients with strong genetic history of female cancer. If interested contact the office. Engage in daily exercise of low impact aerobic exercise 45-60 minutes 4-5 times weekly. Avoid tobacco and illicit drugs as well as using moderation with alcohol intake less than 1-2 8 oz beverages daily. This lifestyle behavior pattern will lead to less health conditions and longer life span. If BMI greater than 25 weight watchers or dietary consult advised. Patient received above instructio ns, and questions have been answered. If you have any questions please call or respond to this email. Patient was made aware of the patient portal and may obtain a paper copy of today's plan if desired. Pap/hpv sentSTD Screen declinedGe netic Screen discussedC olon Screen 2019Dexa Screen naRoutine Labs orderedMam mo ordered Adult heal th examination [id number] Z00.00 [id number] Mary Landers , [facility] [address] [address] 06/21/2023 09:55:52 06/21/2023 10:31:58 Gynecologic examination [id number] Z01.419 Z11.51 Take Calcium with Vitamin D 1200mg daily if not receiving in daily diet. It is strongly advised to have an annual flu shot and up can obtain at most pharmacies . If you have not had a TDap shot in the last 10 years you should obtain one as well. Discussed with patient & provided with informatio n regarding Gardisil vaccine to prevent the 4 strains for HPV that cause cervical cancer if under age 26. Encourage safe sexual practices, to use condoms and limit partners if not already in a monogamous relationsh ip. Do monthly self breast exams. Have mammogram yearly or every other year depending on family history. BRCA testing is now available for patients with strong genetic history of female cancer. If interested contact the office. Engage in daily exercise of low impact aerobic exercise 45-60 minutes 4-5 times weekly. Avoid tobacco and illicit drugs as well as using moderation with alcohol intake less than 1-2 8 oz beverages daily. This lifestyle behavior pattern will lead to less health conditions and longer life span. If BMI greater than 25 weight watchers or dietary consult advised. Patient received above instructio ns, and questions have been answered. If you have any questions please call or respond to this email. Patient was made aware of the patient portal and may obtain a paper copy of today's plan if desired. Pap/hpv q3yrs unless otherwise indicated. STD Screen declinedGe netic Screen discussedC olon Screen 2019Dexa Screen naRoutine Labs orderedMam mo ordered Adult [facility] examination [id number] Z00.00 Vitamin D deficiency 347 10251 E55.9 [id number] CLAU GARCIA MD [facility] [address] [address] 07/02/2024 15:00:34 07/02/2024 15:37:30 Gynecologic examination [id number] Z01.419 Well woman care- Cervical cancer screening: Pap smear not indicated (next 05/2027)- Breast cancer screening: mammogram completed- Colon cancer screening: does not qualify- STD testing: declined- hereditary cancer screening: does not qualify for testing Adult [facility] examination [id number] Z00.00 Health Concerns Section Related Observation LastModified by Organization Detai ls LastModified Time None Recorded Concern Status LastModified by Organization Details LastModified Time None Recorded Advance Directives Directive N: Payers Encounter Date Sequence Insurance Name Policy Number Policy Briggs Covered Member ID Briggs Member ID Guarantor Name 04/04/2020 1 [employer] - CHOICE (POS II) [id number] Candice S Bustos [id number] 2 Candice Bustos 04/24/2021 1 [employer] - CHOICE (POS II) [id number] Candice S Bustos [id number] 2 Candice Bustos 05/30/2022 1 [employer] - CHOICE (POS II) [id number] Candice S Bustos [id number] 2 Candice Bustos 06/21/2023 1 [employer] - CHOICE (POS II) [id number] Candice S Bustos [id number] 2 Candice Bustos 07/02/2024 1 [employer] - CHOICE (POS II) [id number] Candice S Bustos [id number] 2 Candice Bustos Notes Date Note Type Note Provider Name and Address Organization Details Recorded Time 04/04/2020 text/html Annual GYNReport ed bypatient.History:no gynecologic complaints Menstrual cycle:Normal menses Urinary symptoms:No hematuria; No incontinence Vulva:No genital lesion Vagina:Normal vaginal discharge Breast:No breast pain; No breast lump; No nipple discharge Current Contraception:Satisf ied with current contraception; Monogamous relationship; Condoms Sexual complaints:No sexual complaints; No pain during intercourse; Normal libido Menopausal Symptoms:No menopausal symptoms; Normal vaginal lubrication Psychological symptoms:No depression; No anxiety; No PMDD Preventive measures:Encourage self breast examination; Encourage regular exercise; Encourage no tobacco use; Encourage regular mammograms starting age 40; Followed with Q3 year pap smear and high risk HPV typing [facility] [address] [place], [address], [facility] 04/04/2020 11:08:44 04/24/2021 text/html Annual GYNReport ed bypatient.History:no gynecologic complaints Menstrual cycle:Normal menses Urinary symptoms:No hematuria; No incontinence Vulva:No genital lesion Vagina:Normal vaginal discharge Breast:No breast pain; No breast lump; No nipple discharge Current Contraception:Satisf ied with current contraception; Monogamous relationship; Condoms Sexual complaints:No sexual complaints; No pain during intercourse; Normal libido Menopausal Symptoms:No menopausal symptoms; Normal vaginal lubrication Psychological symptoms:No depression; No anxiety; No PMDD Preventive measures:Encourage self breast examination; Encourage regular exercise; Encourage no tobacco use; Encourage regular mammograms starting age 40; Followed with Q3 year pap smear and high risk HPV typing; Needs to schedule mammogram Mary Landers [facility] [address], [place], [address], [facility] 04/24/2021 10:09:07 05/30/2022 text/html Annual GYNReport ed bypatient.History:no gynecologic complaints Menstrual cycle:Normal menses Urinary symptoms:No hematuria; No incontinence Vulva:No genital lesion Vagina:Normal vaginal discharge Breast:No breast pain; No breast lump; No nipple discharge Current Contraception:Satisf ied with current contraception; Condoms Sexual complaints:No sexual complaints; No pain during intercourse; Normal libido Menopausal Symptoms:No menopausal symptoms; Normal vaginal lubrication Psychological symptoms:No depression; No anxiety; No PMDD Preventive measures:Encourage self breast examination; Encourage regular exercise; Encourage no tobacco use; Encourage regular mammograms starting age 40; Followed with yearly pap smears; Needs to schedule mammogram; Up to date on colonoscopy screening Mary Landers [address], [place], [address], [facility] 05/30/2022 10:05:29 06/21/2023 text/html Annual GYNReport ed bypatient.History:no gynecologic complaints Menstrual cycle:Normal menses Urinary symptoms:No hematuria; No incontinence Vulva:No genital lesion Vagina:Normal vaginal discharge Breast:No breast pain; No breast lump; No nipple discharge Current Contraception:Satisf ied with current contraception; Condoms Sexual complaints:No sexual complaints; No pain during intercourse; Normal libido Menopausal Symptoms:No menopausal symptoms; Normal vaginal lubrication Psychological symptoms:No depression; No anxiety; No PMDD Preventive measures:Encourage self breast examination; Encourage regular exercise; Encourage no tobacco use; Encourage regular mammograms starting age 40; Mammogram performed within the past year; Up to date on colonoscopy screening Mary Landers [facility] [address], [place], [address], [facility] 06/21/2023 10:29:39 07/02/2024 text/html Presents today f or her annual well-woman exam. Denies abnormal vaginal discharge. She is sexually active and denies dyspareunia. She is using condoms for contraception, and she states that she is satisfied with this method. She has not noticed any changes or masses in her breasts. Last mammogram 1 week ago, BIRADS 1. LMP 06/25/24. Periods are Q28 days and last 6 days. Flow is moderate, no intermenstrual spotting. CLAU GARCIA MD [address], [place], [address], [facility] 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 Status 04/04/20 20 1 CLOSED Fetus Data First Name Last Name Admitted to NICU Weight (g) Sex Living Outcome Pediatric Complications Fetus ID Race Codes Race Delivery Type [id number] .12 F Full Term 2100 Vaginal Delivery Evens Calculation Initial Evens Date Initial Exam Date Initial Exam Provider Initial Ultrasound Date Last Menstrual Period Date Ultra Sound Weeks Gestation 0 Eighteen To Twenty Week Evens Update Ultra Sound Date Fundal Height At Umbil Quickening Date Ultra Sound Latest Weeks Gestation Final Evens Confirmed By Final Evens Confirmed Date Final Evens Date Ultra Sound Latest Days Gestation 0 0 Menstrual History Last Menstrual Date Menses Monthly On Bcp Conception Prior Menses Frequency Hcg Plus Date Menarche Onset Age Delivery Information Delivery Date Delivery Type Labor Anesthesia Weeks Gestation Incision Type Labor Labor Length Hrs Delivered By Post Complications Tubal Sterilization Discharge Date Comments 6 41 Discharge Information Feeding Method Contraceptive Method Maternal HG B and HCT Levels
--- OUTSIDE RECORDS SUMMARY | 2025-02-27 10:57 | XMS_ITS | Clinical Summary ---
Author Organization [facility] [employer] Address [address] [place] [address] Care Team Providers Care Engraver Tire Mold Name Role Phone Grant Fernandes MD Primary Care Provider [phone] Source Comments [facility] [employer],non-owned Affiliates and Associated Physician Practices is amultiple site organization consisting of ambulatory clinics and hospital sitesin [place], [place], [place] and [place]. This disclosure is being madepursuant to the Care Everywhere program and may not contain all information available regarding this patient. Last updated 18.[facility] [employer] Allergies No known active allergies Medications * Be aware that medications may not be up to date on this document. Alwaysverify current medications with the patient. 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 Gender Identity Not on file Sexual Orientation Not on file Last Filed Vital Signs Vital Sign Reading Time Taken Comments Blood Pressure 110/68 03/08/2019 9:04 AM CDT Pulse 81 03/08/2019 9:04 AM CDT Temperature 36.8 C (98.3 F) 03/08/2019 9:04 AM CDT Respiratory Rate 16 03/08/2019 9:04 AM CDT Oxygen Saturation 100% 03/08/2019 9:04 AM CDT Inhaled Oxygen Concentration - - Weight 61.2 kg (135 lb) 03/08/2019 9:04 AM CDT Height 157.5 cm (5' 2 ) 03/08/2019 9:04 AM CDT Body Mass Index 24.69 03/08/2019 9:04 AM CDT Plan of Treatment Health Maintenance Due Date Last Done Comments LIPID TESTING 1981 MAMMOGRAM 1981 HIV SCREENING 1996 HEPATITIS C SCREENING 09/15/1999 DTAP/TDAP/TD VACCINES (1 - Tdap) 2000 HEPATITIS B VACCINE (1 of 3 - 19+ 3-dose series) 2000 COVID-19 VACCINE (1 - 2023-2 5 season) 2024 DEPRESSION SCREENING 10/27/2024 INFLUENZA VACCINE (Season Ended) 2025 ZOSTER VACCINE (1 of 2) 2031 HIB VACCINE Aged Out No longer eligi ble based on patient's age to complete this topic HPV VACCINE Aged Out No longer eligi ble based on patient's age to complete this topic MENINGOCOCCAL (Group B) VACC INE SHARED DECISION-MAKING Aged Out No longer eligibl e based on patient's age to complete this topic MENINGOCOCCAL GROUPS A/C/Y/W VACCINE Aged Out No longer eligible b ased on patient's age to complete this topic PNEUMOCOCCAL VACCINE Aged Out No long er eligible based on patient's age to complete this topic Insurance [facility] AET Care Teams Engraver Tire Mold Relationship Specialty Start Date End Date Grant Fernandes MD [address] [place] [id number] PCP - General Family Medicine 10/23/16
[2025-02-27 11:01] VITALS: BP 116/81; PULSE 79; RESP 18; TEMP 36.4; O2SAT 100
--- NOTE | 2025-02-27 11:06 | ED.GENADULT ---
HPI - General Adult General Chief complaint: Dental/Oral Stated complaint: infection in tooth Time Seen by Provider: 02/27/25 11:07 Source: patient Mode of arrival: ambulatory Limitations: no limitations History of Present Illness HPI narrative: 44-year-old female patient presents to [facility] with complaints of left lower gum pain/dental pain for the last 2 days. Patient states has been sore for several weeks but states last 2 days it has gotten significantly worse. Denies fevers, body aches or chills. Denies any open wounds or drainage noted. Patient states she did notice some swelling to the jaw today. Related Data Allergies Allergy/AdvReac Type Severity Reaction Status Date / Time No Known Allergies Allergy Verified 02/27/25 11:00 Review of Systems Review of Systems: CONSTITUTIONAL: Denies fever, chills, or sweats. EYES: Denies visual changes, redness, or discharge. ENT: Denies rhinorrhea, congestion, sore throat, or otalgia. Positive left lower dental/gum pain CARDIOVASCULAR: Denies chest pain, palpitations, or edema. RESPIRATORY: Denies cough or dyspnea. GASTROINTESTINAL: Denies abdominal pain, nausea, vomiting, or diarrhea. GENITOURINARY: Denies dysuria or hematuria. SKIN: Denies rash or itching. MUSCULOSKELETAL: Denies back pain, joint pain, or myalgia. NEUROLOGIC: Denies headache, numbness, or weakness. PSYCHIATRIC: Denies anxiety or depression. [facility] Family History Family History Sibling Asthma Grandparent Family history of thyroid disease Carcinoma of colon Diabetes mellitus Social History Social History Smoking status: Never smoker Alcohol intake: current Comments At the time of my signature I agree with nursing past medical history, surgical, social, and family history. There is no relevant family history pertinent to the presenting complaint. Exam Narrative: GENERAL: Well-appearing, well-nourished, and in no acute distress. HEAD: Normocephalic, atraumatic. EYES: PERRLA and EOMI. ENT: Nares clear, no rhinorrhea or epistaxis. Mucous membranes moist. patient does have some erythema and swelling noted to the left lower gum. There is a dental rosalia noted to the left 2nd molar. unsure if there was an obvious pocket of pus does feel more solid to the gum area And no obvious area of fluctuation. NECK: Supple. No lymphadenopathy CHEST: Clear to auscultation. No respiratory distress. HEART: Regular rate and rhythm. No murmur heard. Normal peripheral pulses. ABDOMEN: Soft, nontender, nondistended, normal active bowel sounds. EXTREMITIES: Normal range of motion. No edema. SKIN: Warm, dry, no rash. NEURO: No focal deficits. Alert and oriented x3. Course Course Level of Care: Express Care Visit Vital Signs Vital signs: Vital Signs Temperature 36.4 C L 02/27/25 11:01 Pulse Rate 79 02/27/25 11:01 Respiratory Rate 18 02/27/25 11:01 Blood Pressure 116/81 02/27/25 11:01 Pulse Oximetry 100 02/27/25 11:01 Oxygen Delivery Room Air 02/27/25 11:01 Temperature 36.4 C L 02/27/25 11:01 Pulse Rate 79 02/27/25 11:01 Respiratory Rate 18 02/27/25 11:01 Blood Pressure 116/81 02/27/25 11:01 Pulse Oximetry 100 02/27/25 11:01 Oxygen Delivery Room Air 02/27/25 11:01 vital signs reviewed. Medical Decision Making MDM Narrative Medical decision making narrative: Plan of care for patient is to discharge home with some oral antibiotics. Discussed with her that if the pain comes back right away she may need to follow up with her dentist or her primary doctor possibly open up an abscess there. Patient verbalized understanding denies any other questions or concerns at this time. Differential Diagnosis Differential Diagnosis: Differential diagnosis: Dental caries, periodontal disease, avulsed tooth, tooth infections, mandibular infection, Farhan's angiana, upper tooth infection, dry socket, gingivitis, acute necrotizing ulcerative gingivitis, sialolithiasis. Vital Signs Vital Signs: Vital Signs Temperature 36.4 C L 02/27/25 11:01 Pulse Rate 79 02/27/25 11:01 Respiratory Rate 18 02/27/25 11:01 Blood Pressure 116/81 02/27/25 11:01 Pulse Oximetry 100 02/27/25 11:01 Oxygen Delivery Room Air 02/27/25 11:01 Temperature 36.4 C L 02/27/25 11:01 Pulse Rate 79 02/27/25 11:01 Respiratory Rate 18 02/27/25 11:01 Blood Pressure 116/81 02/27/25 11:01 Pulse Oximetry 100 02/27/25 11:01 Oxygen Delivery Room Air 02/27/25 11:01 Critical Care Time Critical Care Time Critical Care Time: No Discharge Plan Discharge Clinical Impression: Dental abscess, Dental caries Patient Disposition: Home Condition: Stable Instructions: Antibiotic Form, Dental Abscess (ED) Additional Instructions: Antibiotic as directed Avoid temperature extremes May apply heat or ice to the face Gentle brushing and flossing Alternate Tylenol and ibuprofen as needed for pain Follow-up with the dentist as soon as possible--see the list provided Patient Language: French Prescriptions: New amoxicillin-pot clavulanate 875-125 mg tablet 1 tablet PO Q12H 7 Days Qty: 14 0RF Follow-up/Referrals: PHYSICIAN,JUNIOR BUSINESS ANALYST [Primary Care Provider] - Time of Disposition: 11:13
== END 2025-02-27 11:15 | disposition home or self-care (01) ==
PROVIDERS: Emergency Provider Nurse Practitioner Family
DX: K04.7 Periapical abscess without sinus (principal); K02.9 Dental caries, unspecified; Z86.16 Personal history of COVID-19
CPT/HCPCS: 99213; G0463

== ENCOUNTER 2025-09-20 07:52 | Outpatient (CLI) | payer OTHER, SELFPAY ==
--- NOTE | ~2025-09-20 | MM_ITS ---
EXAMINATION: MM screening [facility] BI w adrian HISTORY: Screening TECHNIQUE: Craniocaudal and mediolateral oblique 3-D tomosynthesis images were obtained and synthetic 2-D images were generated. CAD analysis was submitted and interpreted. COMPARISON: Comparison to multiple prior studies sequentially, with oldest reviewed study dated 10/22/2021. BREAST PARENCHYMAL COMPOSITION: The breasts are heterogeneously dense, which may obscure small masses. FINDINGS: There is no evidence of suspicious mass, calcification, or architectural distortion to suggest malignancy in either breast. There has been no suspicious interval change. IMPRESSION: 1. No mammographic evidence of malignancy. 2. Recommend routine screening mammography in one year. BI-RADS Category 1: Negative Reviewed, dictated and finalized at location O. [employer]
--- OUTSIDE RECORDS SUMMARY | 2025-09-20 07:55 | XMS_ITS ---
Author Organization Unknown ENCOUNTERS Encounter Performer Location Date Diagnosis Diagnosis Status Outpatient [place] [facility] [id number] [place] [address] [id number] Outpatient Mary Landers [place] [place] [address] [id number] [facility] Outpatient Mary Landers [place] [address] [facility] [address] [place] [address] [id number] [facility] Outpatient Mary Landers [place] [address] [place] [address] [id number] AMANDA *Note: Encounters from your own facility or health system may be excluded. Allergies, Adverse Reactions, Alerts Allergen Type Severity Identification Date Medications Name Date Quantity Days Supplied GPI Number
--- OUTSIDE RECORDS SUMMARY | 2025-09-20 07:55 | XMS_ITS | Clinical Summary ---
Author Organization [facility] [employer] Address [address] [place] [address] Care Team Providers Care Agronomy Instructor Name Role Phone Grant Fernandes MD Primary Care Provider [phone] Source Comments [facility] [employer],non-owned Affiliates and Associated Physician Practices is amultiple site organization consisting of ambulatory clinics and hospital sitesin [place], [place], [place] and [place]. This disclosure is being madepursuant to the Care Everywhere program and may not contain all information available regarding this patient. 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 Gender Identity Not on file Sexual [...] 9:04 AM CDT Height 157.5 cm (5' 2) 03/08/2019 9:04 AM CDT Body Mass Index 24.69 03/08/2019 9:04 AM CDT Plan of Treatment Health Maintenance Due Date Last Done Comments LIPID TESTING 1981 MAMMOGRAM 1981 HIV SCREENING 1996 HEPATITIS C SCREENING 09/15/1999 DTAP/TDAP/TD VACCINES (1 - Tdap) 2000 HEPATITIS B VACCINE (1 of 3 - 19+ 3-dose series) 2000 PAP SMEAR 2002 HPV VACCINE (1 - 3-dose SCDM series) 2008 Cervical Cancer Screening 2011 PAP with HPV 2011 DEPRESSION SCREENING 10/27/2024 COVID-19 VACCINE (1 - 2024-2 6 season) 2025 INFLUENZA VACCINE (#1) 2025 ZOSTER VACCINE (1 of 2) 2031 [...] patient's age to complete this topic Insurance [facility] Address: [facility] [id number] [place] [address] [employer] [facility] Address: [facility] [id number] [place] [id number] Care Teams Agronomy Instructor Relationship Specialty Start Date End Date Grant Fernandes MD [address] [place] [id number] PCP - General Family Medicine 10/23/16
--- OUTSIDE RECORDS SUMMARY | 2025-09-20 07:55 | XMS_ITS | Data Portability ---
Author Organization [facility] [place] Address [address] [place] [address] Care Team Providers Care Nursing Executive Name Role Phone MOE CEDENO Primary Care Provider Assessment Encounter Date Assessment Date Assessment LastModified [...] a year unless there are new symptoms. [email or web address] Not available 06/21/2023 10:08:08 07/02/2024 07/02/2024 Annual gynecological exam performed. Patient will come back in a year unless there are new symptoms. [email or web address] Not available 07/02/2024 15:09:25 Plan of Treatment Reminders Order Date Submit Date Provider Last Modified By Organization Details Last Modified Time Details Appointments None recorded. Lab CBC w/ auto diff 2023 024 [facility] (Lab), [address], [place], [address], 10/12/202 4 08:11:17 HbA1c (hemoglobi n A1c), blood 2023 024 [facility] (Lab), [address], [place], [address], 4 08:11:19 25-hydroxy vitamin D2 + 25-hydroxy vitamin D3, QN, serum or plasma 2023 024 [facility] (Lab), [address], [place], [address], 4 08:11:18 CMP, serum or plasma 2023 024 [facility] (Lab), [address], [place], [address], 4 08:11:18 lipid panel, blood 2023 024 [facility] (Lab), [address], [place], [address], 4 08:11:17 TSH, serum or plasma 2023 024 [facility] (Lab), [address], [place], [address], 4 08:11:18 vitamin D, 25-hydroxy , total, serum 2022 023 [facility] (Lab), [address], [place], [address], 3 07:41:20 CMP, serum or plasma 2022 023 [facility] (Lab), [address], [place], [address], 3 07:41:19 lipid panel, blood 2022 023 [facility] (Lab), [address], [place], [address], 3 07:41:19 CBC w/ auto diff 2022 023 [facility] (Lab), [address], [place], [address], 3 07:41:18 HbA1c (hemoglobi n A1c), blood 2022 023 [facility] (Lab), [address], [place], [address], 3 07:41:19 TSH, serum or plasma 2022 023 [facility] (Lab), [address], [place], [address], 3 07:41:20 lipid panel, blood 2021 022 [facility] (Lab), [address], [place], [address], 2 04:15:58 HbA1c (hemoglobi n A1c), blood 2021 022 [facility] (Lab), [address], [place], [address], 2 04:15:57 CMP, serum or plasma 2021 022 [facility] (Lab), [address], [place], [address], 2 04:15:59 vitamin D, 25-hydroxy , total, serum 2021 022 [facility] (Lab), [address], [place], [address], 2 04:15:59 CBC w/ auto diff 2021 022 [facility] (Lab), [address] [place], [address], 2 04:15:57 TSH, serum or plasma 2021 022 [facility] (Lab), [address], [place], [address], 2 04:15:58 CBC w/ auto diff 2020 021 [facility] (Lab), [address], [place], [address], 1 02:28:32 lipid panel, blood 2020 021 [facility] (Lab), [address], [place], [address], 1 02:28:33 CMP, serum or plasma 2020 021 [facility] (Lab), [address], [place], [address], 1 02:28:34 TSH, serum or plasma 2020 021 [facility] (Lab), [address], [place], [address], 1 02:28:34 vitamin D, 25-hydroxy , total, serum 2020 021 [facility] (Lab), [address], [place], [address], 1 02:28:34 HbA1c (hemoglobi n A1c), blood 2020 021 [facility] (Lab), [address], [place], [address], 1 02:28:35 CMP, serum or plasma 2019 020 [place] [facility] ([facility]), [address] , [place] [address], [place], [address], 0 12:03:59 CBC 2019 020 [facility] ([facility]), [address] [place] [address] , [address], [place], [address], 0 12:03:59 lipid panel, serum 2019 020 [facility] ([facility]), [address] [place] [address] [address], [place], [address], 0 12:03:58 TSH, serum or plasma 2019 020 [facility] ([facility]), [address], [place], [address], 0 12:04:01 vitamin D, 25-hydroxy , total, serum 2019 020 [facility] ([facility]), [address], [place], [address], 0 12:04:02 HbA1c (hemoglobi n A1c), blood 2019 020 [facility] ([facility]), [address] [place] [address] [address], [place], [address], 0 12:04:00 Referral None recorded. Procedures None recorded. Surgeries None recorded. Imaging MAMMO, screening, digital, bilateral 2020 021 [facility], [address], [address], [place], [address], 2 17:28:37 Medication Orders None recorded. Patient TargetsNo targets recorded. Patient InstructionsNo instructions recorded. Reason for Referral None Reported. Results Created Date Observation Date Name Description Value Unit Range Abnormal Flag Note LastModifiedBy Organization Detail LastModifiedTime 04/04/20 20 04/05/2020 lipid panel , serum cholesterol 165 mg/dL <200 Not Available [facility] ([facility]) [address] [place] [address] [address], [place], [address], 04/05/2020 12:03:58 04/04/20 20 04/05/2020 lipid panel , serum triglyceride s 49 mg/dL <150 Not Available [facility] ([facility]) [address] [place] [address] [address], [place], [address], 04/05/2020 12:03:58 04/04/20 20 04/05/2020 lipid panel , serum HDL cholesterol 66 mg/dL >39 Not Available [facility] ([facility]) [address] [place] [address] [address], [place], [address], 04/05/2020 12:03:58 04/04/20 20 04/05/2020 lipid panel , serum cholesterol / HDL ratio 2.50 ratio 0.00-4 .44 Not Available [facility] ([facility]) [address] [place] [address] [address], [place], [address], 04/05/2020 12:03:58 04/04/20 20 04/05/2020 lipid panel , serum non-HDL cholesterol 99 mg/dL <130 Not Available [facility] ([facility]) [address] [place] [address] [address], [place], [address], 04/05/2020 12:03:58 04/04/2004/05/2020 lipid panel , serum [...] I guide lines Not Available [facility] ([facility]) [address], [place], [address], 04/05/2020 12:03:58 04/04/20 20 04/05/2020 lipid panel , serum LDL/HDL ratio 1.4 ratio <3.3 ___ LDL Susana stero l Patie nt Histo ry ___ Test Date: 01/06 LDL Resul ts: 78 Units : mg/dL % Quiroz e: - ----- ----- ----- ----- ----- [...] e order the ASCVD Advan barry Lipid Profi luciana (LIPC VD). Not Available [facility] ([facility]) [address] [place] [address] [address], [place], [address], 04/05/2020 12:03:58 04/04/2004/05/2020 CBC WBC 5.0 K/uL 3.8-11 .5 Not Available [facility] ([facility]) [address] [place] [address] [address], [place], [address], 04/05/2020 12:03:59 04/04/2004/05/2020 CBC red blood cell count (RBC) 4.54 M/mm3 3.60-5 .30 Not Available [facility] ([facility]) [address] [place] [address] [address], [place], [address], 04/05/2020 12:03:59 04/04/20 20 04/05/2020 CBC hemoglobin (HGB) 13.3 gm/dL 11.5-1 5.5 Not Available [facility] ([facility]) [address] [place] [address] [address], [place], [address], 04/05/2020 12:03:59 04/04/2004/05/2020 CBC hematocrit (HCT) 40.0 % 35.2-4 6.4 Not Available [facility] ([facility]) [address] [place] [address] [address], [place], [address], 04/05/2020 12:03:59 04/04/2004/05/2020 CBC MCV 88.1 fL 79.0-9 9.0 Not Available [facility] ([facility]) [address] [place] [address] [address], [place], [address], 04/05/2020 12:03:59 04/04/20 20 04/05/2020 CBC MCH 29.3 pg 26.9-3 5.0 Not Available [facility] ([facility]) [address] [place] [address] [address], [place], [address], 04/05/2020 12:03:59 04/04/20 20 04/05/2020 CBC MCHC 33.3 g/dL 30.4-3 4.8 Not Available [facility] ([facility]) [address] [place] [address] [address], [place], [address], 04/05/2020 12:03:59 04/04/20 20 04/05/2020 CBC RDW 38.4 fL 38.6-5 3.8 low Not Available [facility] ([facility]) [address] [place] [address] [address], [place], [address], 04/05/2020 12:03:59 04/04/20 20 04/05/2020 CBC platelet count 213 K/cum m 137-39 7 Not Available [facility] ([facility]) [address] [place] [address] [address], [place], [address], 04/05/2020 12:03:59 04/04/20 20 04/05/2020 CMP, serum or plasm a sodium 138 mEq/L 135-14 5 Not Available [facility] ([facility]) [address] [place] [address] [address], [place], [address], 04/05/2020 12:03:59 04/04/20 20 04/05/2020 CMP, serum or plasm a potassium 4.0 mEq/L 3.5-5. 3 Not Available [facility] ([facility]) [address] [place] [address] [address], [place], [address], 04/05/2020 12:03:59 04/04/20 20 04/05/2020 CMP, serum or plasm a chloride 100 mEq/L 97-108 Not Available [facility] ([facility]) [address] [place] [address] [address], [place], [address], 04/05/2020 12:03:59 04/04/20 20 04/05/2020 CMP, serum or plasm a CO2 26 mEq/L 22-32 Not Available [facility] ([facility]) [address] [place] [address] [address], [place], [address], 04/05/2020 12:03:59 04/04/20 20 04/05/2020 CMP, serum or plasm a glucose 83 mg/dL 65-99 Not Available [facility] ([facility]) [address] [place] [address] [address], [place], [address], 04/05/2020 12:03:59 04/04/20 20 04/05/2020 CMP, serum or plasm a BUN 11 mg/dL 6-20 Not Available [facility] ([facility]) [address] [place] [address] [address], [place], [address], 04/05/2020 12:03:59 04/04/20 20 04/05/2020 CMP, serum or plasm a creatinine 0.76 mg/dL 0.50-1 .00 Not Available [facility] ([facility]) [address] [place] [address] [address], [place], [address], 04/05/2020 12:03:59 04/04/20 20 04/05/2020 CMP, serum or plasm a calcium 9.7 mg/dL 8.6-10 .4 Not Available [facility] ([facility]) [address] [place] [address] [address], [place], [address], 04/05/2020 12:03:59 04/04/20 20 04/05/2020 CMP, serum or plasm a protein 7.3 g/dL 6.0-8. 3 Not Available [facility] ([facility]) [address] [place] [address] [address], [place], [address], 04/05/2020 12:03:59 04/04/20 20 04/05/2020 CMP, serum or plasm a albumin 4.9 g/dL 3.5-5. 3 Not Available [facility] ([facility]) [address] [place] [address] [address], [place], [address], 04/05/2020 12:03:59 04/04/20 20 04/05/2020 CMP, serum or plasm a alkaline phosphatase 49 IU/L 35-121 Not Available [facility] ([facility]) [address] [place] [address] [address], [place], [address], 04/05/2020 12:03:59 04/04/20 20 04/05/2020 CMP, serum or plasm a ALT (SGPT) 12 IU/L <5-47 Not Available [facility] ([facility]) [address] [place] [address] [address], [place], [address], 04/05/2020 12:03:59 04/04/20 20 04/05/2020 CMP, serum or plasm a AST (SGOT) 20 IU/L <5-40 Not Available [facility] ([facility]) [address] [place] [address] [address], [place], [address], 04/05/2020 12:03:59 04/04/20 20 04/05/2020 CMP, serum or plasm a bilirubin, total 0.4 mg/dL <0.2-1 .2 Not Available [facility] ([facility]) [address] [place] [address] [address], [place], [address], 04/05/2020 12:03:59 04/04/20 20 04/05/2020 CMP, serum or plasm a A/G ratio 2.0 mg/dL 1.1-2. 5 Not Available [facility] ([facility]) [address], [place], [address], 04/05/2020 12:03:59 04/04/20 20 04/05/2020 GFR, estim ated (eGFR ), serum estimated GFR (black) 115 mL/mi n/1.7 3m2 >59 Not Available [facility] ([facility]) [address], [place], [address], 04/05/2020 12:04:00 04/04/20 20 04/05/2020 GFR, estim [...] e decre ase G5 14 or less Kidne y failu re *In the absen ce of cecilia landrumag e neith er GFR categ ory G1 or G2 fulfi ll the crite donnell for CKD (Shiraz ey Int Suppl 2013; 3.1-1 50) The [...] muscl e mass or diet. Not Available [facility] ([facility]) [address], [place], [address], 04/05/2020 12:04:00 04/04/20 20 04/05/2020 HbA1c (hemo [...] ic <5.7% Non-D iabet ic Not Available [facility] ([facility] [employer] [place]) [address] [place] [address], [place], [address], 04/05/2020 12:04:00 04/04/20 20 04/05/2020 estim ated avera ge gluco se estimated average glucose 100 mg/dL [place] ge Gluco se is calcu lated using the equat ion AG = (28.7 x HgbA1 c) - 46.7 based on the guide lines estab liscolleen d by the ADA. Not Available [facility] ([facility] [employer] [facility] [place]) [address] [place] [address], [place], [address], 04/05/2020 12:04:01 04/04/20 20 04/05/2020 TSH, serum or plasm a TSH reflex to FT4 1.99 mU/L 0.27-4 .20 Not Available [facility] ([facility] [employer] [place]) [address] [place] [address], [place], [address], 04/05/2020 12:04:01 04/04/20 20 04/05/2020 vitam in [...] n requi red. Not Available [facility] ([facility]) [address] [facility] [address], [place], [address], 04/05/2020 12:04:02 04/04/20 20 04/06/2020 pap, LB Pap test thin prep Unsati sfacto ry for Evalua tion unsatisfa ctory ACCES JAGJIT #: [id number] Sourc e: Cervi yaneth/E ndoce rvica l LMP: 03/20 Date Taken : 04/04 Speci men Type: ThinP rep Vial Date Repor macrina: 2019 Clini yaneth Data: Cytot ech: Matheus younger, CT( CP) Date Repor macrina: 2019 Speci [...] tion of E6/E7 viral mRNA. Resul ts shonino d be corre lated with patie nt prese ntati on, histo ry, cervi yaneth cytol ogy and other clini yaneth and labor atory findi ngs. See https ://[employer].com/s ites/ defau lt/fi les/2 018-0 3/AW- 37318 _002_ 01.pd f for furtaihr er infor ibethio n. Test perfo rmed by [facility], [address], [place] [address] , Elias De La Cruz ra, DO, [facility]. HPV High Risk *HPV NOT DETEC [...] labor atory findi ngs. See https ://ww w.Hactus. Nautit/s ites/ defau lt/fi 2 018-0 /AW- 07732 _002_ 01.pd f for ander er infor blanka n. Test perfo rmed by [facility], [facility], [address], [place] [address] , Elias De La Cruz ra, DO, Labor [employer] [facility] tor. End of Repor t Techn ical servi manohar provi ded by [facility], d/b/a [email or web address], [address] [place] [address] Chang Pineda MD, [facility]. Case revie wed and diagn osis rende red at [facility], [facility], [address] [place] [address] Chang Pineda MD, Labor [facility] tor. CONFI DENTI AL Not Available [facility] ([facility]) [address], [place], [address], 04/06/2020 16:51:55 04/04/20 20 04/05/2020 HPV DNA, high- risk HPV high risk NOT DETECT ED normal Not Available [facility] ([facility]) [address], [place], [address], 04/06/2020 16:51:55 04/24/20 21 04/24/2021 CBC W/DIF F WBC 5.7 10'3/ uL 3.6-10 .2 Not Available [facility] (Lab) [address], [place], [address], 04/25/2021 02:28:32 04/24/20 21 04/24/2021 CBC W/DIF F RBC 4.80 10'6/ uL (based on docume nted legal sex) 4.10-5 .30 Not Available [facility] (Lab) [address], [place], [address], 04/25/2021 02:28:32 04/24/20 21 04/24/2021 CBC W/DIF F HGB 13.3 g/dL (based on docume nted legal sex) 11.9-1 5.8 Not Available [facility] (Lab) [address], [place], [address], 04/25/2021 02:28:32 04/24/20 21 04/24/2021 CBC W/DIF F HCT 43.6 % (based on docume nted legal sex) 37.4-4 8.3 Not Available [facility] (Lab) [address], [place], [address], 04/25/2021 02:28:32 04/24/20 21 04/24/2021 CBC W/DIF F MCV 91.0 fL 82.0-9 9.0 Not Available [facility] (Lab) [address], [place], [address], 04/25/2021 02:28:32 04/24/20 21 04/24/2021 CBC W/DIF F MCH 28.0 pg 27.0-3 3.0 Not Available [facility] (Lab) [address], [place], [address], 04/25/2021 02:28:32 04/24/20 21 04/24/2021 CBC W/DIF F MCHC 31.0 g/dL 32.0-3 6.0 low Not Available [facility] (Lab) [address] [facility], [place], [address], 04/25/2021 02:28:32 04/24/20 21 04/24/2021 CBC W/DIF F RDW 13.0 % 11.0-1 5.0 Not Available [facility] ([facility]) [address] [facility], [place], [address], 04/25/2021 02:28:32 04/24/20 21 04/24/2021 CBC W/DIF F plt 215 10'3/ uL 150-45 0 Not Available [facility] ([facility]) [address] [facility], [place], [address], 04/25/2021 02:28:32 04/24/20 21 04/24/2021 CBC W/DIF F MPV 12.8 fL Not Available [facility] (Lab) [address] [facility], [place], [address], 04/25/2021 02:28:32 04/24/20 21 04/24/2021 CBC W/DIF F NRBC's 0.00 % 0 Not Available [facility] (Lab) [address], [place], [address], 04/25/2021 02:28:32 04/24/20 21 04/24/2021 CBC W/DIF F absolute NRBCs 0.0 10'3/ uL 0 Not Available [facility] ([facility]) [address] [facility], [place], [address], 04/25/2021 02:28:32 04/24/20 21 04/24/2021 CBC W/DIF F neutrophils 59.0 % 37.0-7 2.0 Not Available [facility] (Lab) [address] [facility], [place], [address], 04/25/2021 02:28:32 04/24/20 21 04/24/2021 CBC W/DIF F lymphocytes 31.0 % 16.0-4 8.0 Not Available [facility] ([facility]) [address] [facility], [place], [address], 04/25/2021 02:28:32 04/24/20 21 04/24/2021 CBC W/DIF F monocytes 7.0 % 4.0-14 .0 Not Available [facility] (Lab) [address] [facility], [place], [address], 04/25/2021 02:28:32 04/24/20 21 04/24/2021 CBC W/DIF F eosinophils 2.0 % 0.0-9. 0 Not Available [facility] ([facility]) [address] [facility], [place], [address], 04/25/2021 02:28:32 04/24/20 21 04/24/2021 CBC W/DIF F basophils 1.0 % 0.0-2. 0 Not Available [facility] ([facility]) [address] [facility], [place], [address], 04/25/2021 02:28:32 04/24/20 21 04/24/2021 CBC W/DIF F immature granulocytes 0.0 % no define d refere nce range Not Available [facility] (Lab) [address] [place], [address], 04/25/2021 02:28:32 04/24/20 21 04/24/2021 CBC W/DIF F absolute neutrophils 3.4 10'3/ uL 1.1-6. 0 Not Available [facility] ([facility]) [address] [facility], [place], [address], 04/25/2021 02:28:32 04/24/20 21 04/24/2021 CBC W/DIF F absolute lymphocytes 1.8 10'3/ uL 0.7-3. 4 Not Available [facility] ([facility]) [address] [facility], [place], [address], 04/25/2021 02:28:32 04/24/20 21 04/24/2021 CBC W/DIF F absolute monocytes 0.4 10'3/ uL 0.3-1. 0 Not Available [facility] ([facility]) [address] [facility], [place], [address], 04/25/2021 02:28:32 04/24/20 21 04/24/2021 CBC W/DIF F absolute eosinophils 0.1 10'3/ uL 0.0-0. 6 Not Available [facility] ([facility]) [address] [facility], [place], [address], 04/25/2021 02:28:32 04/24/20 21 04/24/2021 CBC W/DIF F absolute basophils 0.1 10'3/ uL 0.0-0. 1 Not Available [facility] (Lab) [address] [facility], [place], [address], 04/25/2021 02:28:32 04/24/20 21 04/24/2021 CBC W/DIF [...] resul ts are expec macrina. Not Available [facility] (Lab) [address] [facility], [place], [address], 04/25/2021 02:28:32 04/24/20 21 04/24/2021 LIPID PANEL ,AMA (LDL- CALC) total cholesterol 149 mg/dL 0-199 Not Available [facility] (Lab) [address] [place], [address], 04/25/2021 02:28:33 04/24/20 21 04/24/2021 LIPID PANEL ,AMA (LDL- CALC) triglyceride s 46 mg/dL 0.00-1 50.00 NCEP Refer ence Value s for Trigl yceri nat: Kira l: <150 mg/dL Borde rline High: 150 - 199 mg/dL High: 200 - 499 mg/dL Very High: >/= 500 mg/dL Not Available [facility] (Lab) [address] [facility], [place], [address], 04/25/2021 02:28:33 04/24/20 21 04/24/2021 LIPID PANEL ,AMA (LDL- CALC) HDL cholesterol 56 mg/dL 23-92 Not Available [facility] (Lab) [address] [place], [address], 04/25/2021 02:28:33 04/24/20 21 04/24/2021 LIPID PANEL [...] mg/dL , HDL <40 mg/dL Not Available [facility] (Lab) [address] [place], [address], 04/25/2021 02:28:33 04/24/20 21 04/24/2021 LIPID PANEL ,AMA (LDL- CALC) non-HDL cholesterol 93 mg/dL no refere nce range A reaso nable goal for non-H DL susana stero l is one that is 30 mg/dL highe r than the LDL susana stero l goal. Not Available [facility] (Lab) [address] [facility], [place], [address], 04/25/2021 02:28:33 04/24/20 21 04/24/2021 LIPID PANEL ,AMA (LDL- CALC) chol/HDL ratio 2.7 . 0.0-5. 0 Not Available [facility] (Lab) [address] [facility], [place], [address], 04/25/2021 02:28:33 04/24/20 21 04/24/2021 CMP(C OMPRE HENSI VE METAB OLIC PANEL ) sodium 138 mmol/ L 136-14 5 Not Available [facility] (Lab) [address] [facility] [facility], [place], [address], 04/25/2021 02:28:34 04/24/20 21 04/24/2021 CMP(C OMPRE HENSI VE METAB OLIC PANEL ) potassium 3.8 mmol/ L 3.5-5. 1 Not Available [facility] (Lab) [address] [facility], [place], [address], 04/25/2021 02:28:34 04/24/20 21 04/24/2021 CMP(C OMPRE HENSI VE METAB OLIC PANEL ) chloride 104 mmol/ L 98-107 Not Available [facility] (Lab) [address] [facility], [place], [address], 04/25/2021 02:28:34 04/24/20 21 04/24/2021 CMP(C OMPRE HENSI VE METAB OLIC PANEL ) carbon dioxide 25 mmol/ L 21-31 Not Available [facility] (Lab) [address] [place], [address], 04/25/2021 02:28:34 04/24/20 21 04/24/2021 CMP(C OMPRE HENSI VE METAB OLIC PANEL ) anion gap 9 mmol/ L 4-13 Not Available [facility] (Lab) [address] [facility], [place], [address], 04/25/2021 02:28:34 04/24/20 21 04/24/2021 CMP(C OMPRE HENSI VE METAB OLIC PANEL ) blood urea nitrogen 12 mg/dL 7-25 Not Available [facility] (Lab) [address] [facility], [place], [address], 04/25/2021 02:28:34 04/24/20 21 04/24/2021 CMP(C OMPRE HENSI VE METAB OLIC PANEL ) creatinine 0.74 mg/dL 0.60-1 .30 Not Available [facility] (Lab) [address] [facility], [place], [address], 04/25/2021 02:28:34 04/24/20 21 04/24/2021 CMP(C OMPRE HENSI VE METAB OLIC PANEL ) GFR () 106 mL/mi n/1.7 3_m2 60-300 Not Available [facility] (Lab) [address] [facility], [place], [address], 04/25/2021 02:28:34 04/24/20 21 04/24/2021 CMP(C OMPRE HENSI VE METAB OLIC PANEL ) GFR (others) 87 mL/mi n/1.7 3_m2 60-300 Not Available [facility] (Lab) [address] [facility], [place], [address], 04/25/2021 02:28:34 04/24/20 21 04/24/2021 CMP(C OMPRE HENSI VE METAB OLIC PANEL ) calcium 9.3 mg/dL 8.6-10 .2 Not Available [facility] (Lab) [address] [facility], [place], [address], 04/25/2021 02:28:34 04/24/20 21 04/24/2021 CMP(C OMPRE HENSI VE METAB OLIC PANEL ) glucose 80 mg/dL 70-100 Not Available [facility] (Lab) [address] [facility], [place], [address], 04/25/2021 02:28:34 04/24/20 21 04/24/2021 CMP(C OMPRE HENSI VE METAB OLIC PANEL ) protein, total 7.1 g/dL 6.4-8. 3 Not Available [facility] (Lab) [address] [facility], [place], [address], 04/25/2021 02:28:34 04/24/20 21 04/24/2021 CMP(C OMPRE HENSI VE METAB OLIC PANEL ) albumin 4.3 g/dL 3.5-5. 0 Not Available [facility] (Lab) [address] [facility], [place], [address], 04/25/2021 02:28:34 04/24/20 21 04/24/2021 CMP(C OMPRE HENSI VE METAB OLIC PANEL ) ALT 9 units /L 9-43 Not Available [facility] (Lab) [address] [facility], [place], [address], 04/25/2021 02:28:34 04/24/20 21 04/24/2021 CMP(C OMPRE HENSI VE METAB OLIC PANEL ) alkaline phosphatase 39 units /L 34-104 Not Available [facility] (Lab) [address] [facility], [place], [address], 04/25/2021 02:28:34 04/24/20 21 04/24/2021 CMP(C OMPRE HENSI VE METAB OLIC PANEL ) AST 15 units /L 13-39 Not Available [facility] (Lab) [address] [facility], [place], [address], 04/25/2021 02:28:34 04/24/20 21 04/24/2021 CMP(C OMPRE HENSI VE METAB OLIC PANEL ) bilirubin, total 0.4 mg/dL 0.2-1. 2 Not Available [facility] (Lab) [address] [facility], [place], [address], 04/25/2021 02:28:34 04/24/20 21 04/24/2021 TSH, REFLE X FREE T4 TSH 2.72 uIU/m L 0.30-5 .33 Not Available [facility] (Lab) [address], [place], [address], 04/25/2021 02:28:34 04/24/20 21 04/24/2021 VITAM IN D, 25-OH (TOTA L D2/D3 ) vitamin D, 25-hydroxy, total 36.5 NG/mL 30-80 NOTE: Defic iency : <20 ng/mL Insuf ficie ncy: 20-29 ng/mL Optim um Level : 30-80 ng/mL Possi ble Toxic ity: >80 ng/mL Most patie nts with toxic ity have level s >150 ng/mL . 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 Not Available [facility] (Lab) [address], [place], [address], 04/26/2021 12:47:05 05/30/20 22 05/30/2022 CBC W/DIF F WBC 5.4 10'3/ uL 3.6-10 .2 Not Available [facility] Infectious Disease [address] [place] [address], [address], 05/31/2022 04:15:57 05/30/20 22 05/30/2022 CBC W/DIF F RBC 4.70 10'6/ uL (based on docume nted legal sex) 4.10-5 .30 Not Available [facility] Infectious Disease [address] [place] [address], [address], 05/31/2022 04:15:57 05/30/20 22 05/30/2022 CBC W/DIF F HGB 13.2 g/dL (based on docume nted legal sex) 11.9-1 5.8 Not Available [facility] Disease [address] [place] [address], [address], 05/31/2022 04:15:57 05/30/20 22 05/30/2022 CBC W/DIF F HCT 42.8 % (based on docume nted legal sex) 37.4-4 8.3 Not Available [facility] [place], [address], 05/31/2022 04:15:57 05/30/20 22 05/30/2022 CBC W/DIF F MCV 91.0 fL 82.0-9 9.0 Not Available [facility] [place], [address], 05/31/2022 04:15:57 05/30/20 22 05/30/2022 CBC W/DIF F MCH 28.0 pg 27.0-3 3.0 Not Available [facility] [place], [address], 05/31/2022 04:15:57 05/30/20 22 05/30/2022 CBC W/DIF F MCHC 31.0 g/dL 32.0-3 6.0 low Not Available [facility] [place], [address], 05/31/2022 04:15:57 05/30/20 22 05/30/2022 CBC W/DIF F RDW 13.0 % 11.0-1 5.0 Not Available [facility] [place], [address], 05/31/2022 04:15:57 05/30/20 22 05/30/2022 CBC W/DIF F plt 251 10'3/ uL 150-45 0 Not Available [facility] [place], [address], 05/31/2022 04:15:57 05/30/20 22 05/30/2022 CBC W/DIF F MPV 12.9 fL 9.8-12 .7 high Not Available [facility] [place], [address], 05/31/2022 04:15:57 05/30/20 22 05/30/2022 CBC W/DIF F NRBC's 0.00 % 0 Not Available [facility] [address] [facility], [place], [address], 05/31/2022 04:15:57 05/30/20 22 05/30/2022 CBC W/DIF F absolute NRBCs 0.0 10'3/ uL 0 Not Available [facility] [address], [place], [address], 05/31/2022 04:15:57 05/30/20 22 05/30/2022 CBC W/DIF F neutrophils 57.0 % 37.0-7 2.0 Not Available [facility] [place], [address], 05/31/2022 04:15:57 05/30/20 22 05/30/2022 CBC W/DIF F lymphocytes 32.0 % 16.0-4 8.0 Not Available [facility] [place], [address], 05/31/2022 04:15:57 05/30/20 22 05/30/2022 CBC W/DIF F monocytes 8.0 % 4.0-14 .0 Not Available [facility] [place], [address], 05/31/2022 04:15:57 05/30/20 22 05/30/2022 CBC W/DIF F eosinophils 2.0 % 0.0-9. 0 Not Available [facility] [place], [address], 05/31/2022 04:15:57 08/04/05/30/2022 CBC W/DIF F basophils 1.0 % 0.0-2. 0 Not Available [facility] Infect[facility] Disease [address] [place], [place] [address], [place], [address], 05/31/2022 04:15:57 05/30/20 22 05/30/2022 CBC W/DIF F immature granulocytes 0.0 % no define d refere nce range Not Available [facility] Disease [address] [place], [place] [address], [place], [address], 05/31/2022 04:15:57 05/30/20 22 05/30/2022 CBC W/DIF F absolute neutrophils 3.1 10'3/ uL 1.1-6. 0 Not Available [facility] Infect[facility] Disease [address] [place] [address], [address], 05/31/2022 04:15:57 05/30/20 22 05/30/2022 CBC W/DIF F absolute lymphocytes 1.7 10'3/ uL 0.7-3. 4 Not Available [facility] Disease [address] [place] [address], [address], 05/31/2022 04:15:57 05/30/20 22 05/30/2022 CBC W/DIF F absolute monocytes 0.4 10'3/ uL 0.3-1. 0 Not Available [facility] Disease [address] [place] [address], [address], 05/31/2022 04:15:57 05/30/20 22 05/30/2022 CBC W/DIF F absolute eosinophils 0.1 10'3/ uL 0.0-0. 6 Not Available [facility] Disease [address] [place] [address], [address], 05/31/2022 04:15:57 05/30/20 22 05/30/2022 CBC W/DIF F absolute basophils 0.1 10'3/ uL 0.0-0. 1 Not Available [facility] [address] [place], [address], 05/31/2022 04:15:57 05/30/20 22 05/30/2022 CBC W/DIF [...] expec macrina. Not Available [facility] [address] [place], [address], 05/31/2022 04:15:57 05/30/20 22 05/30/2022 HEMOG LOBIN [...] >8.0% Actio n sugge sted Not Available [facility] [address] [place], [address], 05/31/2022 04:15:57 05/30/2005/30/2022 TSH, REFLE X FREE T4 TSH 1.99 uIU/m L 0.30-5 .33 Not Available [facility] [address] [place], [address], 05/31/2022 04:15:58 05/30/20 22 05/30/2022 LIPID PANEL ,AMA (LDL- CALC) total cholesterol 164 mg/dL 0-199 Not Available [facility] Infectious Disease [address] [place] [address], [address], 05/31/2022 04:15:58 05/30/20 22 05/30/2022 LIPID PANEL ,AMA (LDL- CALC) triglyceride s 49 mg/dL 0.00-1 50.00 NCEP Refer ence Value s for Trigl yceri nat: Kira l: <150 mg/dL Borde rline High: 150 - 199 mg/dL High: 200 - 499 mg/dL Very High: >/= 500 mg/dL Not Available [facility] Infectious [address], [address], 05/31/2022 04:15:58 05/30/20 22 05/30/2022 LIPID PANEL ,AMA (LDL- CALC) HDL cholesterol 55 mg/dL >40 Not Available [facility] [address], [address], 05/31/2022 04:15:58 05/30/20 22 05/30/2022 LIPID PANEL ,AMA (LDL- CALC) LDL cholesterol 99 mg/dL 0-99 Cutof f value s recom jameson d by the Gavin horta Susana stero l Educa tion Progr am: JOELLEN ABLE: Susana stero l <200 mg/dL LDL <100 mg/dL BORDE RLINE : Susana stero l 200-2 39 mg/dL LDL 101-1 59 mg/dL HIGHE R RISK: Susana stero l >240 mg/dL LDL >160 mg/dL , HDL <40 mg/dL Not Available [facility] Infectious [address], [address], 05/31/2022 04:15:58 05/30/20 22 05/30/2022 LIPID PANEL ,AMA (LDL- CALC) non-HDL cholesterol 109 mg/dL no refere nce range A reaso nable goal for non-H DL susana stero l is one that is 30 mg/dL highe r than the LDL susana stero l goal. Not Available [facility] Infect[facility] Disease [facility] [place], [address], 05/31/2022 04:15:58 05/30/20 22 05/30/2022 LIPID PANEL ,AMA (LDL- CALC) chol/HDL ratio 3.0 . 0.0-5. 0 Not Available [facility] Disease [address] [place] [address], [address], 05/31/2022 04:15:58 05/30/20 22 05/30/2022 CMP(C OMPRE HENSI VE METAB OLIC PANEL ) sodium 139 mmol/ L 133-14 6 Not Available [facility] Disease [address] [place] [address], [address], 05/31/2022 04:15:59 05/30/20 22 05/30/2022 CMP(C OMPRE HENSI VE METAB OLIC PANEL ) potassium 3.6 mmol/ L 3.5-5. 1 Not Available [facility] Disease [address] [place], [place] [address], [place], [address], 05/31/2022 04:15:59 05/30/20 22 05/30/2022 CMP(C OMPRE HENSI VE METAB OLIC PANEL ) chloride 103 mmol/ L 98-107 Not Available [facility] Disease [address] [place] [address], [address], 05/31/2022 04:15:59 05/30/20 22 05/30/2022 CMP(C OMPRE HENSI VE METAB OLIC PANEL ) carbon dioxide 25 mmol/ L 21-31 Not Available [facility] Disease [address] [place] [address], [address], 05/31/2022 04:15:59 05/30/20 22 05/30/2022 CMP(C OMPRE HENSI VE METAB OLIC PANEL ) anion gap 11 mmol/ L 4-13 Not Available [facility] Disease [address] [place], [place] [address], [place], [address], 05/31/2022 04:15:59 05/30/20 22 05/30/2022 CMP(C OMPRE HENSI VE METAB OLIC PANEL ) blood urea nitrogen 10 mg/dL 7-25 Not Available [facility] Disease [address] [place] [address], [address], 05/31/2022 04:15:59 05/30/20 22 05/30/2022 CMP(C OMPRE HENSI VE METAB OLIC PANEL ) creatinine 0.83 mg/dL 0.60-1 .30 Not Available [facility] Disease [address] [place] [address], [address], 05/31/2022 04:15:59 05/30/20 22 05/30/2022 CMP(C OMPRE HENSI VE METAB OLIC PANEL ) egfrcr (CKD-epi 2020) >90 mL/mi n/1.7 3_m2 >=60 Not Available [facility] Infect[facility] Disease [address] [place] [address], [address], 05/31/2022 04:15:59 05/30/20 22 05/30/2022 CMP(C OMPRE HENSI VE METAB OLIC PANEL ) calcium 9.4 mg/dL 8.3-10 .5 Not Available [facility] Disease [address] [place] [address], [address], 05/31/2022 04:15:59 05/30/20 22 05/30/2022 CMP(C OMPRE HENSI VE METAB OLIC PANEL ) glucose 76 mg/dL 70-100 Not Available [facility] Disease [address] [place] [address], [address], 05/31/2022 04:15:59 05/30/20 22 05/30/2022 CMP(C OMPRE HENSI VE METAB OLIC PANEL ) protein, total 7.2 g/dL 6.4-8. 3 Not Available [facility] Disease [address] [place] [address], [address], 05/31/2022 04:15:59 05/30/20 22 05/30/2022 CMP(C OMPRE HENSI VE METAB OLIC PANEL ) albumin 4.5 g/dL 3.5-5. 0 Not Available [facility] Infect[facility] Disease [address] [place] [address], [address], 05/31/2022 04:15:59 05/30/20 22 05/30/2022 CMP(C OMPRE HENSI VE METAB OLIC PANEL ) ALT 12 units /L 9-43 Not Available [facility] Infect[facility] Disease [address] [place] [address], [address], 05/31/2022 04:15:59 05/30/20 22 05/30/2022 CMP(C OMPRE HENSI VE METAB OLIC PANEL ) alkaline phosphatase 46 units /L 34-104 Not Available [facility] Infect[facility] Disease [address] [place] [address], [address], 05/31/2022 04:15:59 05/30/20 22 05/30/2022 CMP(C OMPRE HENSI VE METAB OLIC PANEL ) AST 20 units /L 13-39 Not Available [facility] Infect[facility] Disease [address] [place] [address], [address], 05/31/2022 04:15:59 05/30/20 22 05/30/2022 CMP(C OMPRE HENSI VE METAB OLIC PANEL ) bilirubin, total 0.6 mg/dL 0.2-1. 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 Lázaro arshad bernice d by Desire Morris CT on 022 at 5:42 PM ----- [...] dariela (if appli cable ): PAP EDUCA JASVRI L NOTE: The Pap Test is a [...] as clini dre nye nted. Not Available [facility] [address] [place], [address], 06/04/2022 18:44:13 10/08/23/2022 VITAM IN D, 25-OH (TOTA L D2/D3 ) vitamin D, 25-hydroxy, total 52.9 NG/mL 30.0-1 00.0 Sugge stive of Defic iency : <20 ng/mL Sugge stive of Insuf ficie ncy: 20-29 ng/mL Sugge stive of Suffi cienc y: 30-10 0 ng/mL Sugge stive of Toxic ity: >150 ng/mL Not Available [facility] [address] [place], [address], 08/24/2022 02:09:28 07/25/2007/25/2023 CBC W/DIF F WBC 5.6 10'3/ uL 3.6-10 .2 Not Available [facility] (Lab) [address] , [place], [address], 07/26/2023 07:41:18 07/25/20 23 07/25/2023 CBC W/DIF F RBC 4.67 10'6/ uL (based on docume nted legal sex) 4.10-5 .30 Not Available [facility] (Lab) [address] , [place], [address], 07/26/2023 07:41:18 07/25/20 23 07/25/2023 CBC W/DIF F HGB 13.0 g/dL (based on docume nted legal sex) 11.9-1 5.8 Not Available [facility] (Lab) [address] , [place], [address], 07/26/2023 07:41:18 07/25/20 23 07/25/2023 CBC W/DIF F HCT 41.9 % (based on docume nted legal sex) 37.4-4 8.3 Not Available [facility] (Lab) [address], [place], [address], 07/26/2023 07:41:18 07/25/20 23 07/25/2023 CBC W/DIF F MCV 89.7 fL 82.0-9 9.0 Not Available [facility] (Lab) [address], [place], [address], 07/26/2023 07:41:18 07/25/20 23 07/25/2023 CBC W/DIF F MCH 27.8 pg 27.0-3 3.0 Not Available [facility] (Lab) [address], [place], [address], 07/26/2023 07:41:18 07/25/20 23 07/25/2023 CBC W/DIF F MCHC 31.0 g/dL 32.0-3 6.0 low Not Available [facility] (Lab) [address], [place], [address], 07/26/2023 07:41:18 07/25/20 23 07/25/2023 CBC W/DIF F RDW 12.4 % 11.0-1 5.0 Not Available [facility] (Lab) [address], [place], [address], 07/26/2023 07:41:18 07/25/20 23 07/25/2023 CBC W/DIF F plt 258 10'3/ uL 150-45 0 Not Available [facility] (Lab) [address], [place], [address], 07/26/2023 07:41:18 07/25/20 23 07/25/2023 CBC W/DIF F MPV 12.7 fL 9.8-12 .7 Not Available [facility] (Lab) [address], [place], [address], 07/26/2023 07:41:18 07/25/20 23 07/25/2023 CBC W/DIF F NRBC's 0.0 % 0 Not Available [facility] (Lab) [address], [place], [address], 07/26/2023 07:41:18 07/25/20 23 07/25/2023 CBC W/DIF F absolute NRBCs 0.0 10'3/ uL 0 Not Available [facility] (Lab) [address], [place], [address], 07/26/2023 07:41:18 07/25/20 23 07/25/2023 CBC W/DIF F neutrophils 57.3 % 37.0-7 2.0 Not Available [facility] (Lab) [address], [place], [address], 07/26/2023 07:41:18 07/25/20 23 07/25/2023 CBC W/DIF F lymphocytes 32.1 % 16.0-4 8.0 Not Available [facility] (Lab) [address], [place], [address], 07/26/2023 07:41:18 07/25/20 23 07/25/2023 CBC W/DIF F monocytes 7.0 % 4.0-14 .0 Not Available [facility] (Lab) [address], [place], [address], 07/26/2023 07:41:18 07/25/20 23 07/25/2023 CBC W/DIF F eosinophils 2.1 % 0.0-9. 0 Not Available [facility] (Lab) [address], [place], [address], 07/26/2023 07:41:18 07/25/20 23 07/25/2023 CBC W/DIF F basophils 1.1 % 0.0-2. 0 Not Available [facility] (Lab) [address], [place], [address], 07/26/2023 07:41:18 07/25/20 23 07/25/2023 CBC W/DIF F immature granulocytes 0.4 % no define d refere nce range Not Available [facility] (Lab) [address], [place], [address], 07/26/2023 07:41:18 07/25/20 23 07/25/2023 CBC W/DIF F absolute neutrophils 3.2 10'3/ uL 1.1-6. 0 Not Available [facility] (Lab) [address] [facility], [place], [address], 07/26/2023 07:41:18 07/25/20 23 07/25/2023 CBC W/DIF F absolute lymphocytes 1.8 10'3/ uL 0.7-3. 4 Not Available [facility] (Lab) [address] [facility], [place], [address], 07/26/2023 07:41:18 07/25/20 23 07/25/2023 CBC W/DIF F absolute monocytes 0.4 10'3/ uL 0.3-1. 0 Not Available [facility] (Lab) [address] [facility], [place], [address], 07/26/2023 07:41:18 07/25/20 23 07/25/2023 CBC W/DIF F absolute eosinophils 0.1 10'3/ uL 0.0-0. 6 Not Available [facility] (Lab) [address] [facility], [place], [address], 07/26/2023 07:41:18 07/25/20 23 07/25/2023 CBC W/DIF F absolute basophils 0.1 10'3/ uL 0.0-0. 1 Not Available [facility] (Lab) [address] [facility], [place], [address], 07/26/2023 07:41:18 07/25/20 23 07/25/2023 CBC W/DIF [...] resul ts are expec macrina. Not Available [facility] (Lab) [address] [facility], [place], [address], 07/26/2023 07:41:18 07/25/2007/25/2023 HEMOG LOBIN A1C hemoglobin [...] >8.0% Actio n sugge sted Not Available [facility] (Lab) [address] [facility], [place], [address], 07/26/2023 07:41:18 07/25/2007/25/2023 LIPID PANEL ,AMA (LDL- CALC) total cholesterol 175 mg/dL 0-199 Not Available [facility] (Lab) [address] [facility], [place], [address], 07/26/2023 07:41:19 07/25/2007/25/2023 LIPID PANEL ,AMA (LDL- CALC) triglyceride s 51 mg/dL 0.00-1 50.00 NCEP Refer ence Value s for Trigl yceri nat: Kira l: <150 mg/dL Borde rline High: 150 - 199 mg/dL High: 200 - 499 mg/dL Very High: >/= 500 mg/dL Not Available [facility] (Lab) [address] [facility], [place], [address], 07/26/2023 07:41:19 07/25/2007/25/2023 LIPID PANEL ,AMA (LDL- CALC) HDL cholesterol 54 mg/dL >40 Not Available [facility] (Lab) [address] [place], [address], 07/26/2023 07:41:19 07/25/2007/25/2023 LIPID PANEL ,AMA (LDL- [...] mg/dL , HDL <40 mg/dL Not Available [facility] (Lab) [address], [place], [address], 07/26/2023 07:41:19 07/25/2007/25/2023 LIPID PANEL ,AMA (LDL- CALC) non-HDL cholesterol 121 mg/dL no refere nce range A reaso nable goal for non-H DL susana stero l is one that is 30 mg/dL highe r than the LDL susana stero l goal. Not Available [facility] (Lab) [address], [place], [address], 07/26/2023 07:41:19 07/25/2007/25/2023 LIPID PANEL ,AMA (LDL- CALC) chol/HDL ratio 3.2 . 0.0-5. 0 On February 18, 2023, [facility] labor atori es quiroz ed the equat ion for calcu latin g estim ated low-d ensit y lipop rotei n-cho leste rol (LDL- C) from the Fried jared equat ion to the Caprice mcnamara/Suellen phillips equat ion. This new equat ion is only valid for lipid panel s with trigl yceri nat < 400 mg/dL . Zita es wilmar demon strat ed that this [...] Beltran lowery, Rui Fay, Rui martin, [facility] , and [facility] . 2013. Comp ariso n of a Novel Metho d vs the Fried jared Equat ion for Estim ating Low-D ensit y Lipop rotei n Susana stero l Level s from the [facility] Lipid Profi le. JOSE F: The Journ al of the Ameri can Medic al Assoc iatio n 310 19): 206- . - Tong pickett V, Amairani J, Rand pickett A, Hattie M, Tramaine vines R, Alfonso pickett E, Rosa n[facility] RS, Rafael SR, Caprice mcnamara SS. Fast ing Versu s Nonfa sting and Low-D ensit y Lipop rotei n Susana stero l Accur acy. Circu latio n. 2017Oct 28;137 (1):1 0-19. Not Available [facility] (Lab) [address], [place], [address], 07/26/2023 07:41:19 07/25/20 23 07/25/2023 CMP(C OMPRE HENSI VE METAB OLIC PANEL ) sodium 138 mmol/ L 133-14 6 Not Available [facility] (Lab) [address], [place], [address], 07/26/2023 07:41:19 07/25/20 23 07/25/2023 CMP(C OMPRE HENSI VE METAB OLIC PANEL ) potassium 4.2 mmol/ L 3.5-5. 1 Not Available [facility] (Lab) [address], [place], [address], 07/26/2023 07:41:19 07/25/20 23 07/25/2023 CMP(C OMPRE HENSI VE METAB OLIC PANEL ) chloride 105 mmol/ L 98-107 Not Available [facility] (Lab) [address], [place], [address], 07/26/2023 07:41:19 07/25/20 23 07/25/2023 CMP(C OMPRE HENSI VE METAB OLIC PANEL ) carbon dioxide 27 mmol/ L 21-31 Not Available [facility] (Lab) [address], [place], [address], 07/26/2023 07:41:19 07/25/20 23 07/25/2023 CMP(C OMPRE HENSI VE METAB OLIC PANEL ) anion gap 6 mmol/ L 4-13 Not Available [facility] (Lab) [address], [place], [address], 07/26/2023 07:41:19 07/25/20 23 07/25/2023 CMP(C OMPRE HENSI VE METAB OLIC PANEL ) blood urea nitrogen 12 mg/dL 7-25 Not Available [facility] (Lab) [address], [place], [address], 07/26/2023 07:41:19 07/25/20 23 07/25/2023 CMP(C OMPRE HENSI VE METAB OLIC PANEL ) creatinine 0.85 mg/dL 0.60-1 .30 Not Available [facility] (Lab) [address], [place], [address], 07/26/2023 07:41:19 07/25/20 23 07/25/2023 CMP(C OMPRE HENSI VE METAB OLIC PANEL ) egfrcr (CKD-epi 2020) 88 mL/mi n/1.7 3_m2 >=60 Not Available [facility] (Lab) [address] [place], [address], 07/26/2023 07:41:19 07/25/20 23 07/25/2023 CMP(C OMPRE HENSI VE METAB OLIC PANEL ) calcium 9.6 mg/dL 8.3-10 .5 Not Available [facility] (Lab) [address], [place], [address], 07/26/2023 07:41:19 07/25/20 23 07/25/2023 CMP(C OMPRE HENSI VE METAB OLIC PANEL ) glucose 83 mg/dL 70-100 Not Available [facility] (Lab) [address], [place], [address], 07/26/2023 07:41:19 07/25/20 23 07/25/2023 CMP(C OMPRE HENSI VE METAB OLIC PANEL ) protein, total 7.4 g/dL 6.4-8. 3 Not Available [facility] (Lab) [address], [place], [address], 07/26/2023 07:41:19 07/25/20 23 07/25/2023 CMP(C OMPRE HENSI VE METAB OLIC PANEL ) albumin 4.2 g/dL 3.5-5. 0 Not Available [facility] (Lab) [address], [place], [address], 07/26/2023 07:41:19 07/25/20 23 07/25/2023 CMP(C OMPRE HENSI VE METAB OLIC PANEL ) ALT 9 units /L 9-43 Not Available [facility] (Lab) [address], [place], [address], 07/26/2023 07:41:19 07/25/20 23 07/25/2023 CMP(C OMPRE HENSI VE METAB OLIC PANEL ) alkaline phosphatase 48 units /L 34-104 Not Available [facility] (Lab) [address], [place], [address], 07/26/2023 07:41:19 07/25/20 23 07/25/2023 CMP(C OMPRE HENSI VE METAB OLIC PANEL ) AST 18 units /L 13-39 Not Available [facility] (Lab) [address], [place], [address], 07/26/2023 07:41:19 07/25/20 23 07/25/2023 CMP(C OMPRE HENSI VE METAB OLIC PANEL ) bilirubin, total 0.5 mg/dL 0.2-1. 2 Not Available [facility] (Lab) [address] , [place], [address], 07/26/2023 07:41:19 07/25/20 23 07/25/2023 TSH, REFLE X FREE T4 TSH 2.03 uIU/m L 0.30-5 .33 Not Available [facility] (Lab) [address], [place], [address], 07/26/2023 07:41:20 07/25/20 23 07/25/2023 VITAM IN D, 25-OH (TOTA L D2/D3 ) vitamin D, 25-hydroxy, total 32.2 NG/mL 30.0-1 00.0 Sugge stive of Defic iency : <20 ng/mL Sugge stive of Insuf ficie ncy: 20-29 ng/mL Sugge stive of Suffi cienc y: 30-10 0 ng/mL Sugge stive of Toxic ity: >150 ng/mL Not Available [facility] (Lab) [address], [place], [address], 07/26/2023 07:41:20 08/06/20 24 08/06/2024 CBC W/DIF F WBC 8.0 10'3/ uL 3.5-10 .5 Not Available [facility] (Lab) [address] , [place], [address], 08/07/2024 08:11:17 08/06/20 24 08/06/2024 CBC W/DIF F RBC 4.71 10'6/ uL (based on docume nted legal sex) 3.80-5 .20 Not Available [facility] (Lab) [address], [place], [address], 08/07/2024 08:11:17 08/06/20 24 08/06/2024 CBC W/DIF F HGB 13.3 g/dL (based on docume nted legal sex) 11.6-1 5.4 Not Available [facility] (Lab) [address], [place], [address], 08/07/2024 08:11:17 08/06/20 24 08/06/2024 CBC W/DIF F HCT 42.4 % (based on docume nted legal sex) 34.0-4 5.0 Not Available [facility] (Lab) [address], [place], [address], 08/07/2024 08:11:17 08/06/20 24 08/06/2024 CBC W/DIF F MCV 90.0 fL 80.0-9 9.0 Not Available [facility] (Lab) [address], [place], [address], 08/07/2024 08:11:17 08/06/20 24 08/06/2024 CBC W/DIF F MCH 28.2 pg 27.0-3 4.0 Not Available [facility] (Lab) [address], [place], [address], 08/07/2024 08:11:17 08/06/20 24 08/06/2024 CBC W/DIF F MCHC 31.4 g/dL 32.0-3 5.5 low Not Available [facility] (Lab) [address], [place], [address], 08/07/2024 08:11:17 08/06/20 24 08/06/2024 CBC W/DIF F RDW 12.5 % 11.0-1 5.0 Not Available [facility] (Lab) [address], [place], [address], 08/07/2024 08:11:17 08/06/20 24 08/06/2024 CBC W/DIF F plt 293 10'3/ uL 150-40 0 Not Available [facility] (Lab) [address] [place], [address], 08/07/2024 08:11:17 08/06/20 24 08/06/2024 CBC W/DIF F MPV 12.4 fL 8.8-12 .1 high Not Available [facility] (Lab) [address], [place], [address], 08/07/2024 08:11:17 08/06/20 24 08/06/2024 CBC W/DIF F NRBC's 0.0 % 0.0 Not Available [facility] (Lab) [address], [place], [address], 08/07/2024 08:11:17 08/06/20 24 08/06/2024 CBC W/DIF F absolute NRBCs 0.0 10'3/ uL no refere nce range establ ished Not Available [facility] (Lab) [address], [place], [address], 08/07/2024 08:11:17 08/06/20 24 08/06/2024 CBC W/DIF F neutrophils 62.1 % 34.0-7 3.0 Not Available [facility] (Lab) [address], [place], [address], 08/07/2024 08:11:17 08/06/20 24 08/06/2024 CBC W/DIF F lymphocytes 26.7 % 15.0-5 0.0 Not Available [facility] (Lab) [address], [place], [address], 08/07/2024 08:11:17 08/06/20 24 08/06/2024 CBC W/DIF F monocytes 7.8 % 1.0-15 .0 Not Available [facility] (Lab) [address], [place], [address], 08/07/2024 08:11:17 08/06/20 24 08/06/2024 CBC W/DIF F eosinophils 2.3 % 0.0-8. 0 Not Available [facility] (Lab) [address], [place], [address], 08/07/2024 08:11:17 08/06/20 24 08/06/2024 CBC W/DIF F basophils 1.0 % 0.0-2. 0 Not Available [facility] (Lab) [address], [place], [address], 08/07/2024 08:11:17 08/06/20 24 08/06/2024 CBC W/DIF F immature granulocytes 0.1 % no define d refere nce range Not Available [facility] (Lab) [address], [place], [address], 08/07/2024 08:11:17 08/06/20 24 08/06/2024 CBC W/DIF F absolute neutrophils 5.0 10'3/ uL 1.5-8. 0 Not Available [facility] (Lab) [address], [place], [address], 08/07/2024 08:11:17 08/06/20 24 08/06/2024 CBC W/DIF F absolute lymphocytes 2.1 10'3/ uL 1.0-4. 0 Not Available [facility] (Lab) [address], [place], [address], 08/07/2024 08:11:17 08/06/20 24 08/06/2024 CBC W/DIF F absolute monocytes 0.6 10'3/ uL 0.2-1. 0 Not Available [facility] (Lab) [address], [place], [address], 08/07/2024 08:11:17 08/06/20 24 08/06/2024 CBC W/DIF F absolute eosinophils 0.2 10'3/ uL 0.0-0. 6 Not Available [facility] (Lab) [address], [place], [address], 08/07/2024 08:11:17 08/06/20 24 08/06/2024 CBC W/DIF F absolute basophils 0.1 10'3/ uL 0.0-0. 3 Not Available [facility] (Lab) [address], [place], [address], 08/07/2024 08:11:17 08/06/20 24 08/06/2024 CBC W/DIF [...] resul ts are expec macrina. Not Available [facility] (Lab) [address], [place], [address], 08/07/2024 08:11:17 08/06/20 24 08/06/2024 LIPID PANEL ,AMA (LDL- CALC) total cholesterol 175 mg/dL 0-199 Not Available [facility] (Lab) [address], [place], [address], 08/07/2024 08:11:17 08/06/20 24 08/06/2024 LIPID PANEL ,AMA (LDL- CALC) triglyceride s 54 mg/dL 0-150 NCEP Refer ence Value s for Trigl yceri nat: Kira l: <150 mg/dL Borde rline High: 150 - 199 mg/dL High: 200 - 499 mg/dL Very High: >/= 500 mg/dL Not Available [facility] (Lab) [address], [place], [address], 08/07/2024 08:11:17 08/06/20 24 08/06/2024 LIPID PANEL ,AMA (LDL- CALC) HDL cholesterol 52 mg/dL >40 Not Available [facility] (Lab) [address], [place], [address], 08/07/2024 08:11:17 08/06/20 24 08/06/2024 LIPID PANEL ,AMA (LDL- CALC) LDL cholesterol [...] mg/dL , HDL <40 mg/dL Not Available [facility] (Lab) [address], [place], [address], 08/07/2024 08:11:17 08/06/2008/06/2024 LIPID PANEL ,AMA (LDL- CALC) non-HDL cholesterol 123 mg/dL no refere nce range A reaso nable goal for non-H DL susana stero l is one that is 30 mg/dL highe r than the LDL susana stero l goal. Not Available [facility] (Lab) [address], [place], [address], 08/07/2024 08:11:17 08/06/2008/06/2024 LIPID PANEL ,AMA (LDL- CALC) chol/HDL ratio 3.4 . 0.0-5. 0 On February 18, 2023, [facility] labor atori henry quiroz ed the equat ion for calcu latin g estim ated low-d ensit y lipop rotei n-cho leste rol (LDL- C) from the Fried jared equat ion to the Caprice mcnamara/[facility] equat ion. This new equat ion is only valid for lipid panel s with trigl yceri nat < 400 mg/dL . Studi es have demon strat ed that this [...] s from the Stand ana Lipid Profmercedes le. JOSE F: The Journ al of the Ameri can Medic al Assoc iatio n 310 (19): 2060- . - Tong pickett V, Amairani J, Rand ar A, Hattie M, Tramaine e R, Alfonso pickett E, Rosa koch RS, Rafael SR, Caprice mcnamara SS. Fast ing Versu s Nonfa sting and Low-D ensit y Lipop rotei n Susana stero l Accur acy. Circu latio n. 2017Oct 28;137 (1):1 0-19. Not Available [facility] (Lab) [address], [place], [address], 08/07/2024 08:11:17 08/06/20 24 08/06/2024 CMP(C OMPRE HENSI VE METAB OLIC PANEL ) sodium 140 mmol/ L 133-14 6 Not Available [facility] (Lab) [address] [place], [address], 08/07/2024 08:11:18 08/06/20 24 08/06/2024 CMP(C OMPRE HENSI VE METAB OLIC PANEL ) potassium 3.8 mmol/ L 3.5-5. 1 Not Available [facility] (Lab) [address] [place], [address], 08/07/2024 08:11:18 08/06/20 24 08/06/2024 CMP(C OMPRE HENSI VE METAB OLIC PANEL ) chloride 103 mmol/ L 98-107 Not Available [facility] (Lab) [address] [place], [address], 08/07/2024 08:11:18 08/06/20 24 08/06/2024 CMP(C OMPRE HENSI VE METAB OLIC PANEL ) carbon dioxide 29 mmol/ L 21-31 Not Available [facility] (Lab) [address], [place], [address], 08/07/2024 08:11:18 08/06/20 24 08/06/2024 CMP(C OMPRE HENSI VE METAB OLIC PANEL ) anion gap 8 mmol/ L 4-13 Not Available [facility] (Lab) [address], [place], [address], 08/07/2024 08:11:18 08/06/20 24 08/06/2024 CMP(C OMPRE HENSI VE METAB OLIC PANEL ) blood urea nitrogen 12 mg/dL 7-25 Not Available [facility] (Lab) [address], [place], [address], 08/07/2024 08:11:18 08/06/20 24 08/06/2024 CMP(C OMPRE HENSI VE METAB OLIC PANEL ) creatinine 0.86 mg/dL 0.60-1 .30 Not Available [facility] (Lab) [address], [place], [address], 08/07/2024 08:11:18 08/06/20 24 08/06/2024 CMP(C OMPRE HENSI VE METAB OLIC PANEL ) egfrcr (CKD-epi 2020) 86 mL/mi n/1.7 3_m2 >=60 Not Available [facility] (Lab) [address], [place], [address], 08/07/2024 08:11:18 08/06/20 24 08/06/2024 CMP(C OMPRE HENSI VE METAB OLIC PANEL ) calcium 9.6 mg/dL 8.3-10 .5 Not Available [facility] (Lab) [address], [place], [address], 08/07/2024 08:11:18 08/06/20 24 08/06/2024 CMP(C OMPRE HENSI VE METAB OLIC PANEL ) glucose 90 mg/dL 70-100 Not Available [facility] (Lab) [address], [place], [address], 08/07/2024 08:11:18 08/06/20 24 08/06/2024 CMP(C OMPRE HENSI VE METAB OLIC PANEL ) protein, total 7.0 g/dL 6.4-8. 3 Not Available [facility] (Lab) [address], [place], [address], 08/07/2024 08:11:18 08/06/20 24 08/06/2024 CMP(C OMPRE HENSI VE METAB OLIC PANEL ) albumin 4.3 g/dL 3.5-5. 0 Not Available [facility] (Lab) [address], [place], [address], 08/07/2024 08:11:18 08/06/20 24 08/06/2024 CMP(C OMPRE HENSI VE METAB OLIC PANEL ) ALT 11 units /L 9-43 Not Available [facility] (Lab) [address], [place], [address], 08/07/2024 08:11:18 08/06/20 24 08/06/2024 CMP(C OMPRE HENSI VE METAB OLIC PANEL ) alkaline phosphatase 52 units /L 34-104 Not Available [facility] (Lab) [address], [place], [address], 08/07/2024 08:11:18 08/06/20 24 08/06/2024 CMP(C OMPRE HENSI VE METAB OLIC PANEL ) AST 19 units /L 13-39 Not Available [facility] (Lab) [address], [place], [address], 08/07/2024 08:11:18 08/06/20 24 08/06/2024 CMP(C OMPRE HENSI VE METAB OLIC PANEL ) bilirubin, total 0.6 mg/dL 0.2-1. 2 Not Available [facility] (Lab) [address], [place], [address], 08/07/2024 08:11:18 08/06/20 24 08/06/2024 TSH, REFLE X FREE T4 TSH 2.20 uIU/m L 0.30-5 .33 Not Available [facility] (Lab) [address], [place], [address], 08/07/2024 08:11:18 08/06/20 24 08/06/2024 VITAM IN D, 25-OH (TOTA L D2/D3 ) vitamin D, 25-hydroxy, total 42.7 NG/mL 30.0-1 00.0 Sugge stive of Defic iency : <20 ng/mL Sugge stive of Insuf ficie ncy: 20-29 ng/mL Sugge stive of Suffi cienc y: 30-10 0 ng/mL Sugge stive of Toxic ity: >150 ng/mL Not Available [facility] (Lab) [address], [place], [address], 08/07/2024 08:11:18 08/06/20 24 08/06/2024 HEMOG LOBIN [...] >8.0% Actio n sugge sted Not Available [facility] (Lab) [address], [place], [address], 08/07/2024 08:11:19 10/31/19 22 MAMMO , scree karen, digit al, bilat eral No observ ation record ed. [facility] [address], [place], [address], 11/08/2021 10:03:42 06/25/20 24 06/25/2024 MAMMO , scree karen, bilat eral No observ ation record ed. [facility] [address], [place], [address], 06/26/2024 10:07:30 Result Notes None recorded. Problems Name Problem SNOMED Code Status Onset Date Resolution Date Notes Provider Name and Address Organization Details Recorded Time Screenin g for malignan t neoplasm of cervix Completed 201104/16/2021 Screenin g for malignan t neoplasm s of the cervix;R ecorded Elsewher e: No Locat ion: [facility] S ource: EHR Home Visits Nurse trudi: N Twan ce ID: 0001 Jhon lable Time: 01:00:00 PM [facility] 15:13:27 Speciali zed medical examinat ion Completed 201204/16/2021 Gynecolo gical Examinat ion;Catarino rded Elsewher e: No Locat ion: [facility] S ource: EHR Home Visits Nurse trudi: N Twan ce ID: 0001 Jhon lable Time: 11:00:00 AM [facility] 1 15:13:36 Microsco pic hematuri a [id number] Completed 201404/16/2021 MICROSCO PIC HEMATURI A;Record ed Elsewher e: No Locat ion: [facility] S ource: EHR Home Visits Nurse trudi: N Leninti ce ID: 0001 Jhon lable Time: 09:30:00 AM [facility] 15:13:14 Adult health examinat ion Completed 07/06/ 2015 04/16/2021 ROUTINE MEDICAL EXAM;Rec orded Elsewher e: No Locat ion: Crist[facility]ian vines [facility] S ource: EHR Home Visits Nurse trudi: N Leninti ce ID: 0001 Jhon lable Time: 09:30:00 AM Linda Pineda [facility] 1 15:12:57 Syphilis test finding [id number] Completed 201404/16/2021 Encntr screen for infectio ns w sexl mode of transmis s;Record ed Elsewher e: No Locat ion: [facility] S ource: EHR Home Visits Nurse trudi: N Leninti ce ID: 0001 Jhon lable Time: 02:00:00 PM Linda Pineda [facility] 15:13:[address] Concept Completed 201404/16/2021 Encntr for general adult medical exam w/o abnormal findings ;Recorde d Elsewher e: No Locat ion: [facility] S ource: EHR Home Visits Nurse trudi: N Leninti ce ID: [id number] Jhon lable Time: 02:00:00 PM Linda Pineda [facility] 15:13:33 Secondar y amenorrh ea [id number] Completed 201404/16/2021 Secondar y amenorrh ea;Recor ded Elsewher e: No [facility] S ource: EHR Home Visits Nurse trudi: N Leninti ce ID: 0001 Jhon lable Time: 02:00:00 PM Linda Pineda [facility] 1 15:13:29 Gestatio n less than 9 weeks [id number] Completed 201404/16/2021 Less than 8 weeks gestatio n of pregnanc y;Record ed Elsewher e: No [facility] S ource: EHR Home Visits Nurse trudi: N Leninti ce ID: 0001 Jhon lable Time: 02:00:00 PM Linda Pineda [facility] 1 15:13:05 Body mass index 25-29 - overweig [id number] Completed 201404/16/2021 Body mass index (BMI) 27.0-27. 9, adult;Re corded Elsewher e: No Locat ion: [facility] S ource: EHR Home Visits Nurse trudi: N Leninti ce ID: 0001 Jhon lable Time: 02:00:00 PM Linda Pineda [facility], [facility] 1 15:12:59 Infectio n screenin g Completed 201404/16/2021 Encounte r for screenin g for oth infec/pa rastc diseases ;Recorde d Elsewher e: No Locat ion: [facility] S ource: EHR Home Visits Nurse trudi: N Leninti ce ID: 0001 Jhon lable Time: 02:00:00 PM Linda Pineda [facility], [facility] 1 15:13:09 Pregnanc y detectio n examinat ion Completed 201404/16/2021 Encounte r for pregnanc y test, result positive ;Recorde d Elsewher e: No Locat ion: [facility] S ource: EHR Home Visits Nurse trudi: N Practi ce ID: 0001 Jhon lable Time: 04:30:00 PM Linda Pineda [facility], [facility] 1 15:13:18 Pregnanc y, childbir th and puerperi um finding Completed 201504/16/2021 Encntr for suprvsn of normal first preg, first trimeste r;Record ed Elsewher e: No Locat ion: [facility] S ource: EHR Home Visits Nurse trudi: N Practi ce ID: 0001 Jhon lable Time: 04:30:00 PM Linda Pineda [facility], [facility] 1 15:13:21 Pregnanc y, childbir th and puerperi um finding Completed 201504/16/2021 Encounte r for supervis ion of normal 1st pregnanc y, 2nd trimeste r;Record ed Elsewher e: No Locat ion: [facility] S ource: EHR Home Visits Nurse trudi: N Practi ce ID: 0001 Jhon lable Time: 04:15:00 PM Linda winn, [facility] 15:13:24 Pregnanc y, childbir th and puerperi um finding Completed 201504/16/2021 Encntr for suprvsn of normal first preg, third trimeste r;Practi ce ID: 0001 Linda winn, [facility] 15:13:26 Normal pregnanc y in multigra estela [id number] Completed 201504/16/2021 Encounte r for suprvsn of normal pregnanc y, third trimeste r;Practi ce ID: 0001 Linda winn [facility] 15:13:17 Gestatio n period, 39 weeks [id number] Completed 201504/16/2021 39 weeks gestatio n of pregnanc y;Practi ce ID: 0001 Linda winn [facility] 15:13:07 Lacerati on of female perineum Completed 201504/16/2021 Second degree perineal lacerati on during delivery ;Practic e ID: 0001 Lnida winn [facility] 15:13:10 Single live from singleto n pregnanc y [id number] Completed 201504/16/2021 Single live ;Pr actice ID: 0001 Linda winn [facility] 15:13:31 Lochia finding Completed 201504/16/2021 Encounte r for routine postpart um follow-u p;Practi ce ID: 0001 Linda Pineda tatum [facility] 15:13:12 Urinary tract infectio n followin g delivery [id number] Completed 201504/16/2021 UTI postpart um;Recor ded Elsewher e: No Locat ion: [facility] M le[facility] S ource: EHR Home Visits Nurse trudi: N Practi ce ID: 0001 Jhon lable Time: 11:00:00 AM Linda Pined[facility] 15:13:41 Procedur e by method Completed 201504/16/2021 Encounte r for other general counseli ng and advice on contrace ption;Re corded Elsewher e: No Locat ion: [facility] S ource: EHR Home Visits Nurse trudi: N Practi ce ID: 0001 Jhon lable Time: 11:00:00 AM Linda Pineda [facility] 15:13:[address] Concept Completed 201604/16/2021 Encntr for material liaison exam (general ) (routine ) w/o abn findings ;Practic e ID: 0001 Linda Pineda [facility] 15:13:34 Pregnanc y test negative [id number] Completed 201804/16/2021 Encounte r for pregnanc y test, result negative ;Practic e ID: 0001 Linda Pineda [facility] 15:13:20 Finding of regulari ty of menstrua l cycle Completed 201804/16/2021 Irregula r menstrua tion, unspecif ied;Prac eric ID: 0001 Linda Pineda [facility] 15:13:02 Problem Notes None recorded. Procedures Surgical History Date Name Laterality Status Provider Name and Address Organization Details Recorded Time 06/21/20 Date of Last Pap Smear completed Catalina Gauthier [facility] 06/21/2023 12:59:32 04/18/20 Date of Last Mammogram completed Catalina Gauthier [facility] 06/21/2023 10:10:59 01/22/20 19 completed [facility] 04/24/2021 09:43:09 01/22/20 19 Date of Last Colonoscopy completed [facility] 04/24/2021 09:43:09 10/27/19 02 Ovarian Cystectomy completed Catalina [facility] 06/21/2023 10:13:31 10/27/18 98 extraction of wisdom tooth completed [facility] 06/21/2023 10:13:53 Imaging Results None recorded. Procedure Notes None recorded. Medical Equipment None [...] Prescrib ed Elsewher e: No Locat ion: [facility] odify By: primitivo salazar DateTime : 07/03/20 16 11:00:00 AM Not Available Not Available Not Available Advil 100 mg tablet take 2 tablet by oral route 4 - 6 hours as needed with food 06/21 completed Prescrib ed Elsewher e: Yes Loca tion: [facility] odify By: elizabeth sanchez DateTime : [...] Not Available Not Available Not Avai lable Reclenoraen (28) 0.15 mg-0.03 mg tablet take 1 tablet by oral route every day 04/18 completed Prescrib ed Elsewher e: No Locat ion: [facility] odify By: elizabeth sanchez DateTime : [...] Prescrib ed Elsewher e: Yes [facility]: primitivo [facility] DateTime : 01/02/20 18 08:30:00 AM Not Available Not Available Not Available Multi Vitamin 04/24 completed Not Available Not Available Not Available Adult Probiotic active Not Available Not Available No t Available Probiotic 20 billion cell sprinkle capsule active Prescrib ed Elsewher e: Yes [facility] By: primitivo salazar DateTime : 01/02/20 18 08:30:00 AM Not Available Not Available Not Available iron 15 mg iron (75 mg)/mL oral drops 01/01 completed Prescrib ed Elsewher e: Yes Loca tion: [facility] odify By: primitivo salazar DateTime : 11/21/19 17 09:30:00 AM Not Available Not Available Not Available One Daily 27 mg iron-800 mcg tablet take 1 tablet by oral route every day 01/01 completed Prescrib ed Elsewher e: Yes Loca tion: [facility] odify By: primitivo salazar DateTime : 04/18/20 14 03:00:00 PM Not Available Not Available Not Available Slow Release Iron 144 mg (45 mg iron) tablet,ex tended release active Not Available Not Available Not Available ID NOW COVID-19 Test Kit USE 1 KIT TODAY DIRECTED 05/30 completed Not Available Not Available Not Available Vitals Date Recorded Body height Body mass index (BMI) Body weight Systolic And Diastolic Provider Name and Address Organization Details Last Updated DateTime 04/04/2020 1889.76 cm 0.2 kg/m2 45388.34 g 117/75 mm[Hg] Monica Butcher [facility] 04/04/2020 10:38:31 Date Recorded Body height Body mass index (BMI) Body weight Systolic And Diastolic Provider Name and Address Organization Details Last Updated DateTime 04/24/2021 155.58 cm 26.4 kg/m2 63176.52 g 120/78 mm[Hg] [facility] 04/24/2021 09:42:58 Date Recorded Body height Body mass index (BMI) Body weight Systolic And Diastolic Provider Name and Address Organization Details Last Updated DateTime 05/30/2022 156.21 cm 27.5 kg/m2 44097.67 g 100/70 mm[Hg] [facility] 05/30/2022 09:47:36 Date Recorded Body height Body mass index (BMI) Body weight Systolic And Diastolic Provider Name and Address Organization Details Last Updated DateTime 06/21/2023 156.21 cm 27.5 kg/m2 49340.67 g 107/71 mm[Hg] Catalina Gauthier [facility] 06/21/2023 10:10:17 Date Recorded Body height Body mass index (BMI) Body weight Systolic And Diastolic Provider Name and Address Organization Details Last Updated DateTime 07/02/2024 156.21 cm 29.4 kg/m2 29645.03 g 107/75 mm[Hg] Jessica Mello [facility] 07/02/2024 15:09:44 Social History Question Answer Notes LastModified by Organizat ion Details LastModified Time Tobacco Smoking Status Never Smoker Catalina Gauthier [facility] 06/21/2023 10:10:59 Do You Have An Advance Directive? No Information n ot available 04/24/2021 How Many Years Have You Consumed Alcohol? 21 Information not available 05/30/2022 Are You Blind Or Do You Have Difficulty Seeing? No Information n ot available 04/16/2021 What Is Your Level Of Caffeine Consumption? Occasional Information not available 04/16/2021 How Much Tobacco Do You Chew? None Information not available 04/24/2021 In The 14 Days Before Symptom Onset, Have You Had Close Contact With A Laboratory-confirm ed COVID-19 While That Case Was Ill? No Information n ot available 04/24/2021 In The 14 Days Before [...] Of Diet Are You Following? REGULAR Information n ot available 04/16/2021 What Is The Highest Grade Or Level Of School You Have Completed Or The Highest Degree You Have Received? [id number] Information not available 04/24/2021 Are There Any Guns Present In Your Home? No Information not available 04/24/2021 Have You Ever Been Counseled For Unhealthy Alcohol Use? No [email or web address] Information not available 06/21/2023 Do You Use Protection During Sex? Always Information not available 04/24/2021 Do You Use Your Seat Belt Or Car Seat Routinely? Yes Information not available 04/16/2021 Do You Have Smoke And Carbon Monoxide Detectors In Your Home? Yes Information not available 04/16/2021 How Much Tobacco Do You Smoke? No Information not available 04/24/2021 Do You Use Sunscreen Routinely? Yes Information not available 04/16/2021 Have You Used IV Drugs? No Information not available 04/24/2021 Do You Have Difficulty Walking Or Climbing Stairs? No Information not available 06/21/2023 Sex: Unknown Functional Status Question Answer Note LastModified by Organizat ion Details LastModified Time Do you use any illicit or recreational drugs? No Information not available 04/16/2021 What is your level of alcohol consumption? Occasional Information not available 04/16/2021 Are you able to walk independently without assistance or assistive devices? YESWOREST Information not available 04/16/2021 Are you able to care for yourself independently? 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 No [email or web address] Information not available 06/21/2023 What is your exercise level? Moderate Information not available 04/24/2021 Mental Status Question Answer Note LastModified by Organization D etails LastModified Time Do you feel stressed (tense, restless, nervous, or anxious, or unable to sleep at night)? [id number] Information not available 04/24/2021 Family History Relationship Description Onset Age of this Age Resolved Age Notes LastModified by Organization Details LastModified Time Maternal Grandmother Diabetes mellitus [email or web address] Not available 2019 10:24:48 Maternal Grandmother Disorder of thyroid gland [email or web address] Not available 2019 10:24:58 Maternal Grandmother Anemia [email or web address] Not available 2019 10:25:18 Maternal Grandmother Lactose tolerance [email or web address] Not available 2023 15:01:13 Maternal Grandmother Malignant lymphoma [email or web address] Not available 2023 15:01:13 Sister Anemia [email or web address] Not available 10:25:18 Sister Asthma [email or web address] Not available 10:26:02 Sister Cyst of ovary [email or web address] Not available 2023 15:01:13 Maternal Grandfather Hypertensive disorder [email or web address] Not available 2019 10:25:30 Maternal Grandfather Polyp of colon [email or web address] Not available 2023 15:01:13 Maternal Grandfather Malignant neoplasm of colon Not available 2020 09:43:02 Medical [...] Diagnosis SNOMED-CT Code Diagnosis ICD10 Code Diagnosis IMO Codes Diagnosis Note [id number] Mary Landers [facility] [address] [address] 04/04/2020 10:20:40 04/04/2020 15:50:35 Gynecologic examination 01906083 Z01.419 Take Calcium with Vitamin D 1200mg [...] plan if desired. Adult heal th examination 050595745 Z00.00 [id number] Mary Landers , [facility] [address],[place] [address] 04/24/2021 09:27:31 04/24/2021 10:10:44 Gynecologic examination 05884575 Z01.419 Take Calcium with Vitamin D 1200mg [...] concerns.B C: Condoms Adult heal th examination 083811761 Z00.00 Screening mammography 24 914465 Z12.31 [id number] Mary Landers , [facility] [address] [address] 05/30/2022 09:27:50 05/30/2022 10:16:18 Gynecologic examination 02553018 Z01.419 Z11.51 Take Calcium with Vitamin D [...] Screen naRoutine Labs orderedMam mo ordered Adult [facility] th examination 856465966 Z00.00 [id number] [facility] [address] [address] 06/21/2023 09:55:52 06/21/2023 10:31:58 Gynecologic examination 45277842 Z01.419 Z11.51 Take Calcium with Vitamin D [...] Screen naRoutine Labs orderedMam mo ordered Adult [facility] th examination 357701761 Z00.00 Vitamin D deficiency 347 75219 E55.9 [id number] CLAU GARCIA MD [facility] [address] [address] 07/02/2024 15:00:34 07/02/2024 15:37:30 Gynecologic examination 47055654 Z01.419 [facility]- Cervical cancer screening: Pap smear not indicated (next 05/2027)- Breast cancer screening: mammogram completed- Colon cancer screening: does not qualify- STD testing: declined- hereditary cancer screening: does not qualify for testing Adult heal th examination 480955474 Z00.00 Health Concerns Section Related Observation LastModified by Organization Detai ls LastModified Time None Recorded Concern Status LastModified by Organization Details LastModified Time None Recorded Advance Directives Directive N: Payers Insurance Date Sequence Insurance Name Policy Number Policy Briggs Covered Member ID Birggs Member ID Guarantor Name 07/05/2024 1 [employer] (POS II) [id number] Candice Bustos [id number] Candice Bustos Notes Date Note Type Note Provider Name and Address Organization Details Recorded Time 0 text/html Annual GYNReported by PatientHistoryFor history, patient reportsno gynecologic complaints.Genitourina ry symptomsFor menstrual cycle, patient reportsnormal menses. For urinary symptoms, patient reportsno hematuriaandno incontinence. For vulva, patient reportsno genital lesion. For vagina, patient reportsnormal vaginal discharge.Breast symptomsFor breast, patient reportsno breast pain,no breast lump, andno nipple discharge.Contraceptio nFor current contraception, patient reportssatisfied with current contraceptionandcondom s.Endocrine symptomsFor sexual complaints, patient reportsno sexual complaints,no pain during intercourse, andnormal libido. For menopausal symptoms, patient reportsno menopausal symptomsandnormal vaginal lubrication.Psychologi yaneth symptomsFor psychological symptoms, patient reportsno depression,no anxiety, andno pmdd.Preventative measuresFor preventive measures, patient reportsencourage self breast examination,encourage regular exercise,encourage no tobacco use, andencourage regular mammograms starting age 40. Mary Landers, [facility]- [address], [place], [address], [facility] 04/04/2020 11:08:44 1 text/html Annual GYNReported by PatientHistoryFor history, patient reportsno gynecologic complaints.Genitourina ry symptomsFor menstrual cycle, patient reportsnormal menses. For urinary symptoms, patient reportsno hematuriaandno incontinence. For vulva, patient reportsno genital lesion. For vagina, patient reportsnormal vaginal discharge.Breast symptomsFor breast, patient reportsno breast pain,no breast lump, andno nipple discharge.Contraceptio nFor current contraception, patient reportssatisfied with current contraceptionandcondom s.Endocrine symptomsFor sexual complaints, patient reportsno sexual complaints,no pain during intercourse, andnormal libido. For menopausal symptoms, patient reportsno menopausal symptomsandnormal vaginal lubrication.Psychologi yaneth symptomsFor psychological symptoms, patient reportsno depression,no anxiety, andno pmdd.Preventative measuresFor preventive measures, patient reportsencourage self breast examination,encourage regular exercise,encourage no tobacco use,encourage regular mammograms starting age 40, andneeds to schedule mammogram. Mary Landers, [facility] [address], [place], [address], [facility] 04/24/2021 10:09:07 2 text/html Annual GYNReported by PatientHistoryFor history, patient reportsno gynecologic complaints.Genitourina ry symptomsFor menstrual cycle, patient reportsnormal menses. For urinary symptoms, patient reportsno hematuriaandno incontinence. For vulva, patient reportsno genital lesion. For vagina, patient reportsnormal vaginal discharge.Breast symptomsFor breast, patient reportsno breast pain,no breast lump, andno nipple discharge.Contraceptio nFor current contraception, patient reportssatisfied with current contraceptionandcondom s.Endocrine symptomsFor sexual complaints, patient reportsno sexual complaints,no pain during intercourse, andnormal libido. For menopausal symptoms, patient reportsno menopausal symptomsandnormal vaginal lubrication.Psychologi yaneth symptomsFor psychological symptoms, patient reportsno depression,no anxiety, andno pmdd.Preventative measuresFor preventive measures, patient reportsencourage self breast examination,encourage regular exercise,encourage no tobacco use,encourage regular mammograms starting age 40,followed with yearly pap smears,needs to schedule mammogram, andup to date on colonoscopy screening. Mary Landers [facility] [address], [place], [address], [facility] 05/30/2022 10:05:29 3 text/html Annual GYNReported by PatientHistoryFor history, patient reportsno gynecologic complaints.Genitourina ry symptomsFor menstrual cycle, patient reportsnormal menses. For urinary symptoms, patient reportsno hematuriaandno incontinence. For vulva, patient reportsno genital lesion. For vagina, patient reportsnormal vaginal discharge.Breast symptomsFor breast, patient reportsno breast pain,no breast lump, andno nipple discharge.Contraceptio nFor current contraception, patient reportssatisfied with current contraceptionandcondom s.Endocrine symptomsFor sexual complaints, patient reportsno sexual complaints,no pain during intercourse, andnormal libido. For menopausal symptoms, patient reportsno menopausal symptomsandnormal vaginal lubrication.Psychologi yaneth symptomsFor psychological symptoms, patient reportsno depression,no anxiety, andno pmdd.Preventative measuresFor preventive measures, patient reportsencourage self breast examination,encourage regular exercise,encourage no tobacco use,encourage regular mammograms starting age 40,mammogram performed within the past year, andup to date on colonoscopy screening. Mary Landers, [facility] [address], [place], [address], [facility] 06/21/2023 10:29:39 4 text/html Annual GYNReported by Patient Presents today for her annual well-woman exam. Denies abnormal vaginal [...] spotting. CLAU GARCIA MD [address], [place], [address], [facility] 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
== END 2025-09-20 07:53 | disposition home or self-care (01) ==
LOC: ANHFOHIMG 07:53
PROVIDERS: Visit Provider Obstetrics & Gynecology
DX: Z12.31 Encounter for screening mammogram for malignant neoplasm of breast (principal)
CPT/HCPCS: 77063; 77067